=== PATIENT | female | born 1935 | race American Indian/Alaskan Native ===

== ENCOUNTER 2016-12-07 17:54 | Emergency (ER) | payer MEDICARE ==
--- NOTE | 2016-12-07 19:00 | Emergency Department Report ---
Chief Complaint: Chest Pain Stated Complaint: CHEST PAIN Time Seen by Provider: 12/07/16 18:53 - HPI History of Present Illness: Patient here reports chest pain on the left side of her chest that radiated into her back and also headache. She said the pain is achy in and is 5 out of 10. Her blood pressures to 1/99 and she's on medication. She reports that the pain started 2 days ago. Denies any nausea vomiting. Denies any fever or chills. She says she's having some shortness of breath on and off. She also reports that she feels weak. Patient has a history of diabetes and high blood pressure and high cholesterol. - ROS Review of Systems: All systems are negative unless stated in HPI above. - Exam Vital Signs: Vital Signs 12/07/16 18:16 Temperature 98.2 F Pulse Rate 94 H Respiratory 18 Rate Blood Pressure 201/99 O2 Sat by Pulse 99 Oximetry Physical Exam: General: This is a 81-year-old female well-nourished well-developed in no acute distress. CV: S1, S2. Regular rate and rhythm. Blood pressure 201/99. Lungs: Clear to auscultate bilaterally, no rhonchi wheezes or rales. Shortness of breath on exertion. MSE screening note: Focused history and physical exam performed. Due to findings the following was ordered:see mdm ED Medical Decision Making - Medical Decision Making Medical decision making: Patient seen by provider in triage area. Appropriate protocol activated and patient to main ED to be seen by physician. ED Disposition for MSE Condition: Stable
[2016-12-07 19:31] LABS: Basophils % (Auto) 0.9 % (0.0-1.8); Eosinophils % (Auto) 1.9 % (0.0-4.3); Hematocrit 43.3 % (30.3-42.9); Hemoglobin 14.5 gm/dl (10.1-14.3); Mean Corpuscular HGB Conc 33 % (30-34); Mean Corpuscular Hemoglobin 29 pg (28-32); Mean Corpuscular Volume 87 fl (79-97); Platelet Count 257 K/mm3 (140-440); Red Blood Count 4.96 M/mm3 (3.65-5.03); Red Cell Distribution Width 14.7 % (13.2-15.2); White Blood Count 7.4 K/mm3 (4.5-11.0)
[2016-12-07 19:52] LABS: Creatine Kinase MB 2.7 ng/mL (0.0-4.0)
[2016-12-07 19:54] LABS: Alanine Aminotransferase 23 units/L (7-56); Albumin 4.2 g/dL (3.9-5); Alkaline Phosphatase 50 units/L (35-129); Anion Gap 21 mmol/L; Bilirubin,Total < 0.2 mg/dL (0.1-1.2); Blood Urea Nitrogen 14 mg/dL (7-17); Calcium 9.5 mg/dL (8.4-10.2); Carbon Dioxide 26 mmol/L (22-30); Chloride 97.9 mmol/L (98-107); Creatine Kinase 130 units/L (30-135); Glucose 114 mg/dL (65-100); Potassium 3.9 mmol/L (3.6-5.0); Sodium 141 mmol/L (137-145); Total Protein 8.4 g/dL (6.3-8.2)
[2016-12-07 19:59] LABS: Bilirubin,Direct < 0.2 mg/dL (0-0.2)
[2016-12-08 02:51] LABS: Creatine Kinase 118 units/L (30-135)
[2016-12-08 02:53] LABS: Creatine Kinase MB 2.6 ng/mL (0.0-4.0)
--- NOTE | 2016-12-08 08:35 | XRay Report ---
CHEST X-RAY, 2 VIEWS: HISTORY: Chest pain. FINDINGS: Compared to 06/06/16. Mild cardiomegaly has resolved. Heart size is normal on today's exam. Normal pulmonary vascularity. The lungs are clear. No evidence for pneumonia, pleural effusion or pneumothorax. The thoracic cage is grossly intact. IMPRESSION: No acute cardiopulmonary process. Unremarkable chest films.
--- NOTE | 2016-12-08 10:49 | Emergency Department Report ---
ED Chest Pain HPI - General Chief Complaint: Chest Pain Stated Complaint: CHEST PAIN Time Seen by Provider: 12/07/16 18:53 Source: patient Mode of arrival: Ambulatory Limitations: No Limitations - History of Present Illness Initial Comments: This is a 81-year-old female who presents to the emergency department with complaint of a 2 day history of left-sided chest pain that radiates towards the back. The pain is intermittent. It seems to worsen with movement of the left upper extremity and with certain movements of her torso. She denies any current chest pain or any current shortness of breath but has had some intermittent shortness of breath as well. Patient presents with very elevated blood pressure but had not yet taken her blood pressure medication. She has been here for many hours and has just now taken her a.m. pressure medication. Patient had a negative stress test here in May 2016. Her primary care doctor is Dr. Stout. 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 No recent travel or sick contacts at home. She has a past medical history of hypertension, diabetes but denies any history of TN, CVA, PE/DVT. She is not a tobacco smoker and denies any illicit drug use or abuse. Severity scale (0 -10): 7 - Related Data Home Medications Medication Instructions Recorded Confirmed Last Taken Famotidine [Pepcid] 20 mg PO BID 11/19/15 06/06/16 12/07/16 Simvastatin [Zocor TAB] 40 mg PO QHS 11/19/15 06/06/16 12/07/16 Valsartan/Hydrochlorothiazide 1 tab PO QDAY 11/19/15 06/06/16 12/07/16 [Diovan Hct 160-25 mg] metFORMIN [Glucophage] 500 mg PO BID 11/19/15 06/06/16 12/07/16 Carvedilol [Coreg] 3.125 mg PO BID 06/06/16 06/06/16 12/07/16 hydrALAZINE 100 mg PO BID 06/06/16 06/06/16 12/07/16 Potassium Chloride 10 meq PO QDAY 12/07/16 12/07/16 12/07/16 Previous Rx's Medication Instructions Recorded Last Taken Type Aspirin [Aspirin TAB] 325 mg PO QDAY #30 tablet 11/21/15 12/07/16 Rx Allergies Allergy/AdvReac Type Severity Reaction Status Date / Time codeine AdvReac Dizziness Unverified 11/02/15 10:14 RAMON score - Ramon Score Age > 65: (1) Yes Aspirin use within the Past 7 Days: (1) Yes 3 or more CAD Risk Factors: (1) Yes 2 or more Angina events in past 24 hrs: (0) No Known CAD with more than 50% Stenosis: (0) No Elevated Cardiac Markers: (0) No ST Deviation Greater than 0.5mm: (0) No RAMON Score: 3 ED Review of Systems ROS: Stated complaint: CHEST PAIN Other details as noted in HPI Comment: All other systems reviewed and negative Constitutional: denies: chills, fever Eyes: denies: eye pain, eye discharge, vision change ENT: denies: ear pain, throat pain Respiratory: denies: cough, wheezing Cardiovascular: chest pain. denies: palpitations Gastrointestinal: denies: abdominal pain, nausea, diarrhea Genitourinary: denies: urgency, dysuria, discharge Musculoskeletal: denies: back pain, joint swelling, arthralgia Skin: denies: rash, lesions Neurological: denies: headache, weakness, paresthesias ED Past Medical Hx - Past Medical History Hx Hypertension: Yes Hx CVA: No Hx Heart Attack/AMI: No Hx Congestive Heart Failure: No Hx Diabetes: Yes Hx Deep Vein Thrombosis: No Hx Pulmonary Embolism: No Hx GERD: No Hx Liver Disease: No Hx Renal Disease: No Hx Sickle Cell Disease: No Hx Arthritis: Yes Hx Headaches / Migraines: No Hx Seizures: No Hx Kidney Stones: No Hx Psychiatric Treatment: No Hx Asthma: No Hx COPD: No Hx Dementia: No Hx HIV: No Additional medical history: cholesterol - Surgical History Hx Coronary Stent: No Hx Open Heart Surgery: No Hx Pacemaker: No Hx Internal Defibrillator: No Hx Cholecystectomy: No Hx Appendectomy: No Hx Breast Surgery: No Additional Surgical History: r. knee, and thyroid - Social History Smoking Status: Never Smoker Substance Use Type: None - Medications Home Medications: Home Medications Medication Instructions Recorded Confirmed Last Taken Type Famotidine [Pepcid] 20 mg PO BID 11/19/15 06/06/16 12/07/16 History Simvastatin [Zocor TAB] 40 mg PO QHS 11/19/15 06/06/16 12/07/16 History Valsartan/Hydrochlorothiazide 1 tab PO QDAY 11/19/15 06/06/16 12/07/16 History [Diovan Hct 160-25 mg] metFORMIN [Glucophage] 500 mg PO BID 11/19/15 06/06/16 12/07/16 History Aspirin [Aspirin TAB] 325 mg PO QDAY #30 tablet 11/21/15 06/06/16 12/07/16 Rx Carvedilol [Coreg] 3.125 mg PO BID 06/06/16 06/06/16 12/07/16 History hydrALAZINE 100 mg PO BID 06/06/16 06/06/16 12/07/16 History Potassium Chloride 10 meq PO QDAY 12/07/16 12/07/16 12/07/16 History ED Physical Exam - General Limitations: No Limitations - Other Other exam information: GENERAL: The patient is well-developed well-nourished. HEENT: Normocephalic. Atraumatic. Extraocular motions are intact. Patient has moist mucous membranes. Pupils equal reactive to light bilaterally. NECK: Supple. Trachea is midline. CHEST/LUNGS: Clear to auscultation. There is no respiratory distress noted. Chest pain is reproducible to palpation of chest wall. HEART/CARDIOVASCULAR: Regular. There is no tachycardia. There is no gallop rub or murmur. ABDOMEN: Abdomen is soft, nontender. Patient has normal bowel sounds. There is no abdominal distention. SKIN: There is no rash. There is no diaphoresis. NEURO: The patient is awake, alert, and oriented. The patient is cooperative. The patient has no focal neurologic deficits. The patient has normal speech. MUSCULOSKELETAL: There is no tenderness or deformity. There is no limitation range of motion. There is no evidence of acute injury. ED Course Vital Signs 12/07/16 12/08/16 12/08/16 18:16 03:55 10:43 Temperature 98.2 F 98.9 F Pulse Rate 94 H 79 Respiratory 18 16 Rate Blood Pressure 201/99 173/84 Blood Pressure 185/94 [Left] O2 Sat by Pulse 99 98 92 Oximetry 12/08/16 10:52 Temperature Pulse Rate Respiratory 18 Rate Blood Pressure Blood Pressure [Left] O2 Sat by Pulse Oximetry - Consultations Consultation #1: I spoke with the PA, Carley Isaacs, in behalf of Dr. Zaldivar, for [facility] cardiology regarding the patient's ED course. Since the patient has had negative troponins 3, a normal CT angiography of the chest, is currently asymptomatic and pain-free, and had a negative stress test in May, they feel that the patient is safe for discharge home but they will see her outpatient in the office in the next few days. 12/08/16 13:47 ED Medical Decision Making - Lab Data Result diagrams: 12/07/16 19:10 12/07/16 19:10 - EKG Data -: EKG Interpreted by Me EKG shows normal: sinus rhythm, axis, intervals, QRS complexes, ST-T waves ( nonspecific ST-T waves) Rate: normal - EKG Data When compared to previous EKG there are: previous EKG unavailable Interpretation: nonspecific ST-T wave tammy - Radiology Data Radiology results: report reviewed, image reviewed interpreted by me: Chest x-ray did not show any acute process. Heart is normal shape and size. No effusions. No pneumothorax. No signs of pneumonia seen. CT angiography of the chest does not show any signs of pulmonary embolism or dissection. There is a suspicion for faint bilateral basilar infiltrates. - Medical Decision Making 81-year-old female presents with 2 day history of some left-sided chest pain with radiation towards the back. Intermittent shortness of breath. Patient has been in the emergency department now for about 20 hours. During that time she has had negative troponins 3, a venous Doppler of the lower extremities that does not show any signs of DVT, a CT angiography of the chest that did not show any PE or dissection. The rest the patient's labs have been relatively unremarkable. Patient did have some elevated blood pressure upon presentation but it has come down to a much more reasonable level. During her last reevaluation, the patient says she is asymptomatic without any shortness of breath, chest pain or any complaints at this time. Patient's EKG does not show any signs of ST elevation TN. Since the patient's CT angiography does show a reading that says suspicion for faint bilateral basilar infiltrates, and with her history of diabetes and advanced age, she will be treated with some antibiotics. Spoke with cardiology feel she is safe for discharge home but will follow-up in the next few days. All this information has been given to the patient and she will call [facility] cardiology later today for an appointment. She will return immediately to the emergency department with any return of her chest pain, worsening of her symptoms or any acute distress. She understands and agrees to the plan. - Differential Diagnosis TN, PE, pneumonia, CHF Critical Care Time: No Critical care attestation.: If time is entered above; I have spent that time in minutes in the direct care of this critically ill patient, excluding procedure time. ED Disposition Clinical Impression: Chest pain in adult Hypertension Qualifiers: Hypertension type: essential hypertension Qualified Code(s): I10 - Essential ( primary) hypertension Disposition: DISCHARGED TO HOME OR SELFCARE Is pt being admited?: No Does the pt Need Aspirin: No Condition: Stable Instructions: Chest Pain (ED), Hypertension (ED) Additional Instructions: Please call today to the cardiology group you were given a referral to, [facility] cardiology, to make an appointment for the next few days. Follow- up with your primary care doctor. Return to the emergency department with any return of your chest pain, worsening of your symptoms, or any acute distress. Referrals: CHI LEVY MD [Primary Care Provider] - 3-[facility]5 Days Time of Disposition: 13:54
[2016-12-08] MEDS ORDERED: CATAPRES PO ONE (10:59)
[2016-12-08] MEDS ORDERED: APRESOLINE IV ONE (11:06)
[2016-12-08] MEDS ORDERED: NACL ONE (12:09)
--- NOTE | 2016-12-08 13:07 | Cat Scan Report ---
CTA chest: History: Elevated d-dimer. Chest pain. Findings: No evidence of aortic aneurysm or pulmonary embolism. No pleural or pericardial effusion. No mediastinal mass. Suspicion of bibasilar faint infiltrates. Impression: No pulmonary embolism. Suspicion of faint bilateral basilar infiltrates.
[2016-12-08 14:15] VITALS: BP 150/81
--- NOTE | 2016-12-09 07:56 | Vascular Lab Report ---
[id number] LOWER EXTREMITY VENOUS DUPLEX: REASON FOR EXAM: Pain and swelling of the lower extremities. COMMENTS ON THE RIGHT: All veins visualized are freely compressible without evidence of internal echogenicity. Flow is spontaneous and phasic throughout. COMMENTS ON THE LEFT: All veins visualized are freely compressible without evidence of internal echogenicity. Flow is spontaneous and phasic throughout. IMPRESSION: No evidence of acute or chronic deep venous thrombosis in either lower extremity.
== END 2016-12-08 14:20 | disposition home or self-care (01) ==
LOC: ED 17:54
DX: R07.9 Chest pain, unspecified (principal); I10 Essential (primary) hypertension; E11.9 Type 2 diabetes mellitus without complications; M19.90 Unspecified osteoarthritis, unspecified site; Z88.5 Allergy status to narcotic agent; Z79.82 Long term (current) use of aspirin
CPT/HCPCS: 36415; 71020; 71275; 80048; 80074; 82550; 82553; 84484; 85025; 85379; 93005; 93010; 93970; 99284; Q9967

== ENCOUNTER 2017-01-03 16:05 | Emergency (ER) | payer MEDICARE ==
[2017-01-03] MEDS ORDERED: CATAPRES PO ONE (20:25)
[2017-01-03] MEDS ORDERED: TYLENOL PO ONE (20:25)
--- NOTE | 2017-01-03 20:34 | Emergency Department Report ---
Chief Complaint: Headache Stated Complaint: SEVERE HEADACHE - HPI History of Present Illness: 81F past medical history hypertension presents with complaint of 3 days of worsening headache throbbing left-sided mom states that she was taking Motrin for headache with no resolution - Exam Vital Signs: Vital Signs 01/03/17 01/03/17 16:15 19:54 Temperature 98.0 F Pulse Rate 85 74 Respiratory 18 16 Rate Blood Pressure 193/104 Blood Pressure 187/94 [Left] O2 Sat by Pulse 97 95 Oximetry Physical Exam: AAOx3, NAD, pt ambulatory MSE screening note: Focused history and physical exam performed. Due to findings the following was ordered: Screening Assessment/Plan/Differential Dx: Headache, possible symptomatic hypertension 1- This initial assessment/diagnostic orders/clinical plan/ treatment(s) is/are subject to change based on pt's health status, clinical progression and re- assessment by fellow clinical providers in the ED. Further treatment and workup at subsequent clinical provers discretion. Patient/guardians urged not to elope from ED as their condition may be serious if not clinically assessed and managed. 2-I notified charge nurse of up triage as patient has high blood pressure in context of headache will treat with clonidine for now and Tylenol for symptomatic relief ordered basic labs and noncontrast head CT given patient's age and risk factors and complaint of severe headache. will defer further workup and management to main ed provider ED Disposition for MSE Condition: Stable Referrals: PRIMARY MD VONNIE [Primary Care Provider] - 3-5 Days
[2017-01-03 20:39] LABS: Basophils % (Auto) 0.5 % (0.0-1.8); Hematocrit 42.9 % (30.3-42.9); Hemoglobin 14.2 gm/dl (10.1-14.3); Mean Corpuscular HGB Conc 33 % (30-34); Mean Corpuscular Hemoglobin 29 pg (28-32); Mean Corpuscular Volume 87 fl (79-97); Platelet Count 326 K/mm3 (140-440); Red Blood Count 4.93 M/mm3 (3.65-5.03); Red Cell Distribution Width 14.4 % (13.2-15.2); White Blood Count 7.1 K/mm3 (4.5-11.0)
[2017-01-03] MEDS ORDERED: NACL 0.9% 500 ML 500 ML IV ONE (20:47)
[2017-01-03] MEDS ORDERED: REGLAN IV ONE (20:47)
--- NOTE | 2017-01-03 20:57 | Emergency Department Report ---
ED General Adult HPI - General Chief complaint: Headache Stated complaint: SEVERE HEADACHE Time Seen by Provider: 01/03/17 20:35 Source: patient, RN notes reviewed, old records reviewed Mode of arrival: Ambulatory Limitations: No Limitations - History of Present Illness Initial comments: This is a 81-year-old female. She is previously unknown to me. 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 Patient presents to the ER complaining of headache, left-sided neck pain. The headache is present for 3 days. It is throbbing and intermittent. It is not sudden or thunderclap in nature. It did not reach maximal intensity within an hour. There is no neck stiffness. Patient describes left-sided paracervical neck pain and left shoulder pain. There is no weakness. There is no bladder or bowel retention or incontinence. There is no chest pain or shortness of breath. There is no blurry vision or loss of vision. There is no pain with chewing or swallowing foods. No recent trauma. No recent chiropractic manipulation. -: Gradual Location: head, neck Radiation: neck Severity scale (0 -10): 5 Quality: aching Consistency: intermittent Improves with: rest Worsens with: movement Associated Symptoms: headaches. denies: confusion, chest pain, cough, diaphoresis, fever/chills, loss of appetite, malaise, nausea/vomiting, rash, seizure, shortness of breath, syncope, weakness - Related Data Home Medications Medication Instructions Recorded Confirmed Last Taken Famotidine [Pepcid] 20 mg PO BID 11/19/15 06/06/16 12/07/16 Simvastatin [Zocor TAB] 40 mg PO QHS 11/19/15 06/06/16 12/07/16 Valsartan/Hydrochlorothiazide 1 tab PO QDAY 11/19/15 06/06/16 12/07/16 [Diovan Hct 160-25 mg] metFORMIN [Glucophage] 500 mg PO BID 11/19/15 06/06/16 12/07/16 Carvedilol [Coreg] 3.125 mg PO BID 06/06/16 06/06/1617 hydrALAZINE 100 mg PO BID 06/06/16 06/06/16 12/07/16 Potassium Chloride 10 meq PO QDAY 12/07/16 12/07/16 12/07/16 Previous Rx's Medication Instructions Recorded Last Taken Type Aspirin [Aspirin TAB] 325 mg PO QDAY #30 tablet 11/21/15 12/07/16 Rx Allergies Allergy/AdvReac Type Severity Reaction Status Date / Time codeine AdvReac Dizziness Verified 01/03/17 16:15 ED Review of Systems ROS: Stated complaint: SEVERE HEADACHE Other details as noted in HPI Constitutional: denies: malaise Eyes: denies: eye discharge, vision change ENT: denies: epistaxis Respiratory: denies: cough Cardiovascular: denies: chest pain Gastrointestinal: denies: abdominal pain Musculoskeletal: arthralgia Skin: denies: lesions Neurological: headache Psychiatric: as per HPI ED Past Medical Hx - Past Medical History Previous Medical History?: Yes Hx Hypertension: Yes Hx CVA: No Hx Heart Attack/AMI: No Hx Congestive Heart Failure: No Hx Diabetes: Yes Hx Deep Vein Thrombosis: No Hx Pulmonary Embolism: No Hx GERD: No Hx Liver Disease: No Hx Renal Disease: No Hx Sickle Cell Disease: No Hx Arthritis: Yes Hx Headaches / Migraines: No Hx Seizures: No Hx Kidney Stones: No Hx Psychiatric Treatment: No Hx Asthma: No Hx COPD: No Hx Dementia: No Hx HIV: No Additional medical history: cholesterol - Surgical History Hx Coronary Stent: No Hx Open Heart Surgery: No Hx Pacemaker: No Hx Internal Defibrillator: No Hx Cholecystectomy: No Hx Appendectomy: No Hx Breast Surgery: No Additional Surgical History: r. knee, and thyroid - Social History Smoking Status: Never Smoker Substance Use Type: None - Medications Home Medications: Home Medications Medication Instructions Recorded Confirmed Last Taken Type Famotidine [Pepcid] 20 mg PO BID 11/19/15 06/06/16 12/07/16 History Simvastatin [Zocor TAB] 40 mg PO QHS 11/19/15 06/06/16 12/07/16 History Valsartan/Hydrochlorothiazide 1 tab PO QDAY 11/19/15 06/06/16 12/07/16 History [Diovan Hct 160-25 mg] metFORMIN [Glucophage] 500 mg PO BID 11/19/15 06/06/16 12/07/16 History Aspirin [Aspirin TAB] 325 mg PO QDAY #30 tablet 11/21/15 06/06/16 12/07/16 Rx Carvedilol [Coreg] 3.125 mg PO BID 06/06/16 06/06/16 12/07/16 History hydrALAZINE 100 mg PO BID 06/06/16 06/06/16 12/07/16 History Potassium Chloride 10 meq PO QDAY 12/07/16 12/07/16 12/07/16 History ED Physical Exam - General Limitations: Physical Limitation (she has chronic arthritis and left-sided shoulder pain. She cannot abduction of the left shoulder past 90. This is chronic.) General appearance: alert, in no apparent distress - Head Head exam: Present: atraumatic, normocephalic - Eye Eye exam: Present: normal appearance, PERRL, EOMI, other (there is no temporal tenderness. Visual acuity is intact to reading at a close distance, finger counting, color perception.). Absent: nystagmus - ENT ENT exam: Present: normal exam, normal orophraynx, mucous membranes moist, normal external ear exam - Neck Neck exam: Present: normal inspection, full ROM. Absent: tenderness, meningismus - Respiratory Respiratory exam: Present: normal lung sounds bilaterally. Absent: respiratory distress, wheezes, rales, rhonchi, stridor, chest wall tenderness - Cardiovascular Cardiovascular Exam: Present: regular rate, normal rhythm, normal heart sounds. Absent: bradycardia, tachycardia, irregular rhythm, systolic murmur, diastolic murmur, rubs, gallop - GI/Abdominal GI/Abdominal exam: Present: soft, normal bowel sounds. Absent: distended, tenderness, guarding, rebound, rigid, pulsatile mass - Extremities Exam Extremities exam: Present: normal inspection, full ROM, normal capillary refill. Absent: tenderness, pedal edema, joint swelling, calf tenderness - Back Exam Back exam: Present: normal inspection, full ROM. Absent: tenderness, CVA tenderness (R), CVA tenderness (L), muscle spasm, paraspinal tenderness, vertebral tenderness - Neurological Exam Neurological exam: Present: alert, oriented X3, normal gait, other (Extraocular movements intact. Tongue midline. No facial droop. Facial sensation intact to light touch in the V1, V2, V3 distribution bilaterally. 5 and 5 strength in 4 extremities.. Sensation is intact to light touch in 4 extremities.). Absent : motor sensory deficit (sensation intact to light touch, pinprick, proprioception.) - Psychiatric Psychiatric exam: Present: normal affect, normal mood - Skin Skin exam: Present: warm, dry, intact, normal color. Absent: rash ED Course Vital Signs 01/03/17 01/03/17 01/03/17 16:15 19:54 20:37 Temperature 98.0 F Pulse Rate 85 74 Respiratory 18 16 Rate Blood Pressure 193/104 187/94 Blood Pressure 187/94 [Left] O2 Sat by Pulse 97 95 Oximetry 01/03/17 01/04/17 23:16 01:33 Temperature Pulse Rate 94 H 82 Respiratory 16 16 Rate Blood Pressure Blood Pressure 172/92 164/83 [Left] O2 Sat by Pulse 95 97 Oximetry - Reevaluation(s) Reevaluation #1: 01/03/17 23:08 Differential diagnosis: Migraine headache, tension headache, cluster headache, hypertensive headache, cervical radiculopathy, arterial dissection, muscular neck pain Assessment and plan: 81-year-old female with headache and neck pain. She has a GCS of 15, with an NIH score of 0. No visual complaints, no pain with chewing or swallowing food, normal sedimentation rate. Therefore think temporal arteritis is unremarkable. She has a GCS of 15, and an NIH score is 0. She is afebrile with reassuring vital signs, with the exception of hypertension. She has follow-up with her legal service specialist in the morning. I appreciate the patient had a negative MR angiogram in October 2015, but given her advanced age, and profound hypertension, I will obtain a noncontrast CT scan of the head and neck to exclude fracture, compression, spontaneous intracerebral hemorrhage, as well as an angiogram to exclude arterial disease. Historically her headache does not sound consistent with aneurysmal subarachnoid hemorrhage. Her hypertension is noted and appreciated, she has follow-up with a legal service specialist in the morning. Reevaluation #2: 01/04/17 01:54 patient reassessed by me multiple times while in the department. CT scan of the head, cervical spine and angiogram demonstrated no acute/ urgent findings. Incidental findings are noted. She can follow-up with her primary care doctor for these. Repeat blood pressure is improved, repeat neurologic exam is unremarkable and unchanged. She will be discharged. Return precautions are reviewed. ED Medical Decision Making - Lab Data Result diagrams: 01/03/17 20:23 01/03/17 20:23 Vital Signs 01/03/17 01/03/17 01/03/17 16:15 19:54 20:37 Temperature 98.0 F Pulse Rate 85 74 Respiratory 18 16 Rate Blood Pressure 193/104 187/94 Blood Pressure 187/94 [Left] O2 Sat by Pulse 97 95 Oximetry Lab Results 01/03/17 01/03/17 01/03/17 Range/Units 20:23 20:23 20:23 WBC 7.1 (4.5-11.0) K/mm3 RBC 4.93 (3.65-5.03) M/mm3 Hgb 14.2 (10.1-14.3) gm/dl Hct 42.9 (30.3-42.9) % MCV 87 (79-97) fl MCH 29 (28-32) pg MCHC 33 (30-34) % RDW 14.4 (13.2-15.2) % Plt Count 326 (140-440) K/mm3 Lymph % (Auto) 42.0 H (13.4-35.0) % [place] % (Auto) 7.5 H (0.0-7.3) % Eos % (Auto) 2.0 (0.0-4.3) % Baso % (Auto) 0.5 (0.0-1.8) % Lymph # 3.0 (1.2-5.4) K/mm3 [place] # 0.5 (0.0-0.8) K/mm3 Eos # 0.1 (0.0-0.4) K/mm3 Baso # 0.0 (0.0-0.1) K/mm3 Seg Neutrophils % 48.0 (40.0-70.0) % Seg Neutrophils # 3.4 (1.8-7.7) K/mm3 ESR 18 (0-20) mm/Hr Sodium 139 (137-145) mmol/L Potassium 3.7 (3.6-5.0) mmol/L Chloride 96.3 L (98-107) mmol/L Carbon Dioxide 27 (22-30) mmol/L Anion Gap 19 mmol/L BUN 14 (7-17) mg/dL Creatinine 0.6 L (0.7-1.2) mg/dL Estimated GFR > 60 ml/min BUN/Creatinine Ratio 23.33 % Glucose 91 (65-100) mg/dL Calcium 9.5 (8.4-10.2) mg/dL - Radiology Data Radiology results: report reviewed, image reviewed CT angiogram of the neck: Atherosclerosis noted in the carotid siphons bilaterally with less than 50% narrowing. No other intracranial evidence of hemodynamically significant stenosis. Possible slight focal outpouching of the A1 segment of the right ASHANTI, likely tortuosity rather than small aneurysm. CT angiogram of the neck: There is no ringing in atherosclerosis at the bulb and proximal ICAs bilaterally, likely 50% or less. There is mild tortuosity. Mild atherosclerosis of the carotid siphons bilaterally. Maybe more severe on the left, limited due to bony artifact. There is bilateral tortuosity. DJD is noted in the spine. There is a heterogeneous left thyroid with mild rightward tracheal deviation. Consider thyroid ultrasound. Noncontrast CT scan of the cervical spine demonstrates osteophytes, mild foraminal narrowing, osteopenia, slight C4 to 6 compression, likely chronic/degenerative. Noncontrast CT scan of the brain negative for acute findings. Critical care attestation.: If time is entered above; I have spent that time in minutes in the direct care of this critically ill patient, excluding procedure time. ED Disposition Clinical Impression: Headache, Elevated blood pressure Disposition: DISCHARGED TO HOME OR SELFCARE Is pt being admited?: No Does the pt Need Aspirin: No Condition: Stable Additional Instructions: follow up With your legal service specialist in the morning. Did not take metformin for the next 48 hours. Continue current outpatient medications otherwise, with the exception of metformin as directed. Long-term complications of hypertension/elevated blood pressure includes stroke , heart attack, disability, , paralysis, permanent loss of quality of life. It is very important to closely follow up with her outpatient legal service specialist for further management and evaluation of your blood pressure/ hypertension. Return to the ER right away with new pain, worsened pain, migration of pain, fevers or chills, intractable nausea or vomiting, inability to tolerate liquid feeds. Riana Gray and Norberto are local neurology specialists. Follow-up with either neurology or primary care for your headache within the next 10-[address] scan of the head and neck demonstrated numerous incidental findings which should be followed up. Nonspecific abnormalities were noted in the thyroid gland. These should be followed up by her primary care doctor. Degenerative disease and arthritis are suggested on the cervical spine CT. This can be followed up by her primary care doctor. There is nonspecific narrowing of the arteries at supply the brain. This should be followed up by her primary care doctor or one of the recommended neurologist. Referrals: PRIMARY CARE, [Primary Care Provider] - 3-5 Days GIULIANO CERVANTES MD [Staff Physician] - 3-5 Days PRASHANTH ZAVALA MD [Staff Physician] - 3-5 Days LILLIE GRAY MD [Staff Physician] - 3-5 Days
[2017-01-03 20:59] LABS: Anion Gap 19 mmol/L; BUN/Creatinine Ratio 23.33; Blood Urea Nitrogen 14 mg/dL (7-17); Calcium 9.5 mg/dL (8.4-10.2); Carbon Dioxide 27 mmol/L (22-30); Chloride 96.3 mmol/L (98-107); Glucose 91 mg/dL (65-100); Potassium 3.7 mmol/L (3.6-5.0); Sodium 139 mmol/L (137-145)
[2017-01-03] MEDS ORDERED: NACL ONE (22:10)
--- NOTE | 2017-01-03 23:17 | Cat Scan Report ---
FINAL REPORT PROCEDURE: CT CERVICAL SPINE WO CON TECHNIQUE: Computerized tomography of the cervical spine was performed from the skull base to T1 without contrast material. HISTORY: Neck pain. Question radiculopathy. COMPARISON: No prior studies are available for comparison. FINDINGS: C1-2: Mild predental narrowing. C2-3: Small posterior and uncovertebral osteophytes, slightly more right-sided. Minimal right foraminal narrowing. C3-4: Small posterior and uncovertebral osteophytes, more right-sided. Minimal right foraminal narrowing. C4-5: Small posterior and uncovertebral osteophytes. Mild bilateral facet arthropathy. Slight canal stenosis and foraminal narrowing. C5-6: Similar to above findings. C6-7: Small posterior and uncovertebral osteophytes. C7-T1: No significant abnormality. Other: Osteopenia. Multilevel osteophytes. Slight C4-6 compression. Moderate atherosclerosis. Right thyroid lobe not well seen. Mild enlargement of the left lobe of the thyroid with slight rightward tracheal deviation. Esophagus mildly prominent and thick-walled. A few small scattered lymph nodes throughout the neck. IMPRESSION: Osteopenia and degenerative change. Slight C4-6 compression, likely chronic/degenerative. Consider MRI for further characterization if there is continued clinical concern and if patient has no contraindication to MRI. Atherosclerosis. Right thyroid lobe not well seen. Mild enlargement of left lobe of the thyroid gram with slight rightward tracheal deviation. Consider thyroid ultrasound. Esophagus mildly prominent and thick-walled, consider correlation with fluoroscopic examination or endoscopy if there is continued clinical concern..
--- NOTE | 2017-01-03 23:23 | Cat Scan Report ---
FINAL REPORT PROCEDURE: CT HEAD/BRAIN WO CON TECHNIQUE: Computerized tomography of the head was performed without contrast material. HISTORY: Severe headache. COMPARISON: CT scan of the brain dated 11/19/2015. FINDINGS: Skull and scalp: Normal. Paranasal sinuses: Minimal ethmoid sinusitis. Ventricles and subarachnoid spaces: Normal. Cerebrum: No evidence of hemorrhage, acute infarction or mass. Punctate bilateral basal ganglia calcifications. Mild periventricular white matter low attenuation. Cerebellum and brainstem: No evidence of hemorrhage, acute infarction or mass. Stable small 7 millimeter area of low attenuation in the left cerebellum. Vasculature: Mild atherosclerosis. Comments: None. IMPRESSION: No new CT evidence of acute intracranial pathology. Atrophy. White matter changes likely related to chronic small vessel ischemic change. Probable small focal area of encephalomalacia in the left cerebellum, unchanged. Consider further characterization including MRI of the brain if there is continued clinical concern for subtle superimposed acute process and if patient has no contraindication to MRI.
--- NOTE | 2017-01-04 00:28 | Cat Scan Report ---
FINAL REPORT PROCEDURE: CT ANGIO HEAD TECHNIQUE: Computerized tomographic angiography of the head was performed after the IV injection of iodinated nonionic contrast including image processing. The image data was postprocessed using 2-dimensional multiplanar reformatted (MPR) and 3-dimensional (MIP and/or volume rendered) techniques. HISTORY: Headache. Hypertension. COMPARISON: CT scan of the brain dated 01/03/2017. FINDINGS: Cerebrum: No evidence of hemorrhage, acute ischemia or mass. Cerebellum: No evidence of hemorrhage, acute ischemia or mass. Subarachnoid spaces and ventricles: Normal. Paranasal sinuses: Minimal ethmoid sinusitis. Intracranial vessels: Carotid siphon: Mild atherosclerosis with probable less than 50 percent narrowing. Anterior cerebral: Possible slight focal outpouching of the A1 segment of the right ASHANTI. Middle cerebral: Normal. Posterior cerebral:Normal. Vertebral arteries including basilar: Normal. Aneurysms: None. Dural sinuses: Normal. IMPRESSION: Mild atherosclerosis of the carotid siphons bilaterally with probably less than 50 percent narrowing. No other intracranial CTA evidence of hemodynamically significant stenosis. Possible slight focal outpouching of the A1 segment of the right ASHANTI likely tortuosity rather than small aneurysm. Consider further evaluation including followup examination or MRI if there is continued clinical concern and patient has no contraindication to MRI.
--- NOTE | 2017-01-04 00:49 | Cat Scan Report ---
FINAL REPORT PROCEDURE: CT ANGIO NECK TECHNIQUE: Computerized tomographic angiography of the neck was performed after the IV injection of iodinated nonionic contrast including image processing. The image data was postprocessed using 2-dimensional multiplanar reformatted (MPR) and 3-dimensional (MIP and/or volume rendered) techniques. HISTORY: Headache. Hypertension. COMPARISON: CT and CTA of the brain dated same day and time. Note: Assessment of carotid artery stenosis is based on measurement of the distal internal carotid artery diameter as the denominator for stenosis calculations and the [place] Symptomatic Carotid Endarterectomy Trial (NASCET) stenosis criteria . CPT 3100F FINDINGS: Sinuses: Normal . Non vascular cervical structures: No significant abnormality . Aortic arch: Mild atherosclerosis. Approximately 30-40 percent narrowing of the origin of the left subclavian artery. Right carotid artery: Approximately 50 percent narrowing at the bulb. Approximately 30 percent narrowing of the proximal ICA. Atherosclerosis of the carotid siphon, limited evaluation but probably less than 50 percent stenosis. Tortuosity. Left carotid artery: Approximately 50 percent narrowing at the bulb. Probably 30-40 narrowing of the proximal ICA. Mild atherosclerosis of the carotid siphon on the left, limited evaluation. Consider there may be at least 50 percent narrowing although evaluation limited by artifact. Tortuosity. Vertebral arteries: Normal . Other: Enlarged heterogeneous left thyroid with mild rightward tracheal deviation. Small scattered subcentimeter lymph nodes throughout the neck. Degenerative changes of the spine. Slight C4-6 compression. IMPRESSION: Narrowing and atherosclerosis at the bulb and proximal ICAs bilaterally, probably 50 percent or less. Tortuosity. Mild atherosclerosis of the carotid siphons bilaterally. This may be more severe on the left, limited evaluation due to bony artifact. There is vessel tortuosity bilaterally. Consider further evaluation including MRA if there is continued clinical concern and patient has no contraindication to MRI. Also consider carotid Doppler ultrasound for further characterization. Enlarged heterogeneous left thyroid with mild rightward tracheal deviation. Consider thyroid ultrasound. Degenerative changes of the spine with age indeterminate slight cervical spine compression.
[2017-01-04 01:34] VITALS: BP 164/83
== END 2017-01-04 02:11 | disposition home or self-care (01) ==
LOC: ED 16:05
DX: I10 Essential (primary) hypertension (principal); R51 Headache; E11.9 Type 2 diabetes mellitus without complications; Z87.39 Personal history of other diseases of the musculoskeletal system and connective tissue
CPT/HCPCS: 36415; 70450; 70496; 70498; 72125; 80048; 85025; 85652; 96361; 96374; 99284; J2765; J7040; Q9967

== ENCOUNTER 2017-08-03 06:34 | Emergency (ER) | payer MEDICARE ==
[2017-08-03] MEDS ORDERED: MOTRIN PO ONE (08:41)
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
--- NOTE | 2017-08-03 10:22 | XRay Report ---
LUMBOSACRAL SPINE, 3 VIEWS: History: Back pain Findings: The vertebral bodies, disk spaces and posterior elements are intact. No compression deformity or malalignment. Moderate multilevel degenerative disc disease and facet arthropathy are identified. The SI joints are symmetric and unremarkable. Impression: Lumbar spondylosis. No acute injury is appreciated.
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
[2017-08-03 12:04] VITALS: BP 189/87
== END 2017-08-03 12:03 | disposition home or self-care (01) ==
LOC: ED 06:34
DX: S16.1XXA Strain of muscle, fascia and tendon at neck level, initial encounter (principal); M54.9 Dorsalgia, unspecified; I10 Essential (primary) hypertension; E11.9 Type 2 diabetes mellitus without complications; V49.49XA Driver injured in collision with other motor vehicles in traffic accident, initial encounter; Y93.9 Activity, unspecified; Y92.9 Unspecified place or not applicable; Y99.9 Unspecified external cause status
CPT/HCPCS: 72070; 72100; 72125

== ENCOUNTER 2018-04-30 10:13 | Emergency (ER) | payer MEDICARE ==
[2018-04-30] MEDS ORDERED: MOTRIN PO ONE (12:44)
[2018-04-30] MEDS ORDERED: CATAPRES PO ONE (12:44)
--- NOTE | 2018-04-30 12:45 | Emergency Department Report ---
Blank Doc - Documentation Documentation: Patient is a 83-year-old female who is presenting with left shoulder pain. Patient states that she has a history of left shoulder pain and arthritis but states the pain is not worse over the last week and a half. Patient also took her blood pressure this morning and it was elevated. Patient denies shortness of breath chest pain cough congestion and fevers chills at this time. Patient states that her pain in the shoulder is worse with movement. Brief physical exam patient does have crepitus with range of motion to the left shoulder. EKG will be done because of the elevated blood pressure and rule o acute coronary syndrome. Patient was given Catapres and pain meds. Patient be reassessed spelled TIFFANIE. Ut
--- NOTE | 2018-04-30 14:42 | Emergency Department Report ---
ED General Adult HPI - General Chief complaint: High BP Stated complaint: HIGH BLOOD SUGAR Time Seen by Provider: 04/30/18 12:40 Source: patient Mode of arrival: Ambulatory Limitations: No Limitations - History of Present Illness Initial comments: 83-year-old female presents for evaluation of left shoulder pain worse with movement she denies any fevers chills or direct trauma to left shoulder. Patient also states that her blood pressure has been high and she is asking for a blood sugar to be checked. Denies any shortness of breath palpitations pleuritic chest pain nausea vomiting epigastric pain. Pain is specifically worse when she rotates her left shoulder. Patient is visibly able to move left shoulder. Patient states that this pain is chronic. Severity scale (0 -10): 7 - Related Data Home Medications Medication Instructions Recorded Confirmed Last Taken Famotidine [Pepcid] 20 mg PO BID 11/19/15 06/06/16 12/07/16 Simvastatin [Zocor TAB] 40 mg PO QHS 11/19/15 06/06/16 12/07/16 Valsartan/Hydrochlorothiazide 1 tab PO QDAY 11/19/15 06/06/16 12/07/16 [Diovan Hct 160-25 mg] metFORMIN [Glucophage] 500 mg PO BID 11/19/15 06/06/16 12/07/16 Carvedilol [Coreg] 3.125 mg PO BID 06/06/16 06/06/16 12/07/16 hydrALAZINE 100 mg PO BID 06/06/16 06/06/16 12/07/16 Potassium Chloride 10 meq PO QDAY 12/07/16 12/07/16 12/07/16 Previous Rx's Medication Instructions Recorded Last Taken Type Aspirin [Aspirin TAB] 325 mg PO QDAY #30 tablet 11/21/15 12/07/16 Rx Ibuprofen [Motrin] 600 mg PO Q8H PRN #15 tablet 08/03/17 Unknown Rx methOCARBAMOL [Robaxin TAB] 500 mg PO Q6H PRN #15 tablet 08/03/17 Unknown Rx traMADol [Ultram] 50 mg PO Q6HR PRN #12 tablet 08/03/17 Unknown Rx Acetaminophen [Acetaminophen TAB] 500 mg PO Q6HR PRN #25 tablet 04/30/18 Unknown Rx traMADol [Ultram 50 MG tab] 50 mg PO Q6HR PRN #8 tablet 04/30/18 Unknown Rx Allergies Allergy/AdvReac Type Severity Reaction Status Date / Time codeine AdvReac Dizziness Verified 01/03/17 16:15 ED Review of Systems ROS: Stated complaint: HIGH BLOOD SUGAR Other details as noted in HPI ED Past Medical Hx - Past Medical History Hx Hypertension: Yes Hx CVA: No Hx Heart Attack/AMI: No Hx Congestive Heart Failure: No Hx Diabetes: Yes Hx Deep Vein Thrombosis: No Hx Pulmonary Embolism: No Hx GERD: No Hx Liver Disease: No Hx Renal Disease: No Hx Sickle Cell Disease: No Hx Arthritis: Yes Hx Headaches / Migraines: No Hx Seizures: No Hx Kidney Stones: No Hx Psychiatric Treatment: No Hx Asthma: No Hx COPD: No Hx Dementia: No Hx HIV: No Additional medical history: cholesterol - Surgical History Hx Coronary Stent: No Hx Open Heart Surgery: No Hx Pacemaker: No Hx Internal Defibrillator: No Hx Cholecystectomy: No Hx Appendectomy: No Hx Breast Surgery: No Additional Surgical History: r. knee, and thyroid - Social History Smoking Status: Never Smoker Substance Use Type: None - Medications Home Medications: Home Medications Medication Instructions Recorded Confirmed Last Taken Type Famotidine [Pepcid] 20 mg PO BID 11/19/15 06/06/16 12/07/16 History Simvastatin [Zocor TAB] 40 mg PO QHS 11/19/15 06/06/16 12/07/16 History Valsartan/Hydrochlorothiazide 1 tab PO QDAY 11/19/15 06/06/16 12/07/16 History [Diovan Hct 160-25 mg] metFORMIN [Glucophage] 500 mg PO BID 11/19/15 06/06/16 12/07/16 History Aspirin [Aspirin TAB] 325 mg PO QDAY #30 tablet 11/21/15 06/06/16 12/07/16 Rx Carvedilol [Coreg] 3.125 mg PO BID 06/06/16 06/06/16 12/07/16 History hydrALAZINE 100 mg PO BID 06/06/16 06/06/16 12/07/16 History Potassium Chloride 10 meq PO QDAY 12/07/16 12/07/16 12/07/16 History Ibuprofen [Motrin] 600 mg PO Q8H PRN #15 tablet 08/03/17 Unknown Rx methOCARBAMOL [Robaxin TAB] 500 mg PO Q6H PRN #15 tablet 08/03/17 Unknown Rx traMADol [Ultram] 50 mg PO Q6HR PRN #12 tablet 08/03/17 Unknown Rx Acetaminophen [Acetaminophen TAB] 500 mg PO Q6HR PRN #25 tablet 04/30/18 Unknown Rx traMADol [Ultram 50 MG tab] 50 mg PO Q6HR PRN #8 tablet 04/30/18 Unknown Rx ED Physical Exam - General Limitations: No Limitations General appearance: alert, in no apparent distress - Head Head exam: Present: atraumatic, normocephalic - Eye Eye exam: Present: normal appearance - ENT ENT exam: Present: mucous membranes moist - Neck Neck exam: Present: normal inspection - Respiratory Respiratory exam: Present: normal lung sounds bilaterally. Absent: respiratory distress - Cardiovascular Cardiovascular Exam: Present: regular rate, normal rhythm. Absent: systolic murmur, diastolic murmur, rubs, gallop - GI/Abdominal GI/Abdominal exam: Present: soft, normal bowel sounds - Extremities Exam Extremities exam: Present: normal inspection - Back Exam Back exam: Present: normal inspection - Neurological Exam Neurological exam: Present: alert, oriented X3 - Psychiatric Psychiatric exam: Present: normal affect, normal mood - Skin Skin exam: Present: warm, dry, intact, normal color. Absent: rash ED Course Vital Signs 04/30/18 04/30/18 11:40 13:01 Temperature 97.5 F L Pulse Rate 87 87 Respiratory 20 Rate Blood Pressure 190/85 190/85 O2 Sat by Pulse 96 Oximetry ED Medical Decision Making - Medical Decision Making A/P: Acute on chronic left shoulder pain 1-no clinical signs of infection. Range of motion is preserved. 2-blood pressure is normalized. Patient has no symptoms suggestive of acute cardiac event. 3-EKG is unchanged from prior, Dr. Huggins reviewed this with me. 4-Tylenol when necessary, short course tramadol. Patient states she has had this before without a significant reaction Critical care attestation.: If time is entered above; I have spent that time in minutes in the direct care of this critically ill patient, excluding procedure time. ED Disposition Clinical Impression: Chronic left shoulder pain Hypertension Qualifiers: Hypertension type: unspecified Qualified Code(s): I10 - Essential (primary) hypertension Disposition: TO HOME OR SELFCARE Is pt being admited?: No Does the pt Need Aspirin: No Condition: Stable Instructions: Hypertension (ED), Arthralgia (ED) Prescriptions: Acetaminophen [Acetaminophen TAB] 500 mg PO Q6HR PRN #25 tablet PRN Reason: Pain traMADol [Ultram 50 MG tab] 50 mg PO Q6HR PRN #8 tablet PRN Reason: Pain Referrals: CHI LEVY MD [Primary Care Provider] - 3-5 Days Forms: Accompanied Note Time of Disposition: 14:44
[2018-04-30 15:19] VITALS: BP 158/77
== END 2018-04-30 15:18 | disposition home or self-care (01) ==
LOC: ED 10:13
DX: M25.512 Pain in left shoulder (principal); G89.29 Other chronic pain; I10 Essential (primary) hypertension; E11.9 Type 2 diabetes mellitus without complications; M19.90 Unspecified osteoarthritis, unspecified site; Z88.5 Allergy status to narcotic agent; Z79.82 Long term (current) use of aspirin
CPT/HCPCS: 82962; 93005; 93010

== ENCOUNTER 2018-09-07 08:46 | Emergency (ER) | payer MEDICARE ==
[2018-09-07 10:06] LABS: Bacteria,Urine 1+ /HPF (Negative); Bilirubin,Urine NEG (Negative); Blood,Urine NEG (Negative); Color,Urine Yellow (Yellow); Mucus,Urine FEW /HPF; Protein,Urine <15 mg/dL mg/dL (Negative); Urobilinogen,Urine < 2.0 mg/dL (<2.0)
--- NOTE | 2018-09-07 10:11 | Cat Scan Report ---
CT HEAD WITHOUT CONTRAST: HISTORY: Headache. TECHNIQUE: Sequential CT images without contrast. FINDINGS: Images obtained show bilateral prominence of the sulci and ventricles. There are no abnormal intra- or extra-axial blood or fluid collections. There are no focal masses or evidence of mass effect. The espinal white matter differentiation appears within normal limits. Regions of periventricular decreased attenuation are consistent with microangiopathic ischemic disease. The posterior fossa structures including the fourth ventricle, cerebellum, and brainstem appear normal. IMPRESSION: Evidence of atrophy and microangiopathic ischemic disease. No acute intracranial process noted. No significant change since 01/03/17.
[2018-09-07 10:16] LABS: Basophils % (Auto) 0.5 % (0.0-1.8); Eosinophils # (Auto) 0.1 K/mm3 (0.0-0.4); Eosinophils % (Auto) 1.5 % (0.0-4.3); Hemoglobin 14.3 gm/dl (10.1-14.3); Lymphocytes # (Auto) 2.6 K/mm3 (1.2-5.4); Lymphocytes % (Auto) 44.1 % (13.4-35.0); Mean Corpuscular HGB Conc 34 % (30-34); Mean Corpuscular Hemoglobin 30 pg (28-32); Mean Corpuscular Volume 89 fl (79-97); Monocytes # (Auto) 0.4 K/mm3 (0.0-0.8); Monocytes % (Auto) 6.6 % (0.0-7.3); Platelet Count 284 K/mm3 (140-440); Red Blood Count 4.73 M/mm3 (3.65-5.03); Red Cell Distribution Width 14.6 % (13.2-15.2)
--- NOTE | 2018-09-07 10:19 | Emergency Department Report ---
ED Headache HPI - General Chief Complaint: Headache Stated Complaint: HEAD PAIN Time Seen by Provider: 09/07/18 09:20 Source: patient - History of Present Illness Initial Comments: 83-year-old female reports headache 1 week. Patient states feels like something is pinching her inside her head. Patient states sensation is primarily on right side of the head but sometimes radiates over to the left side as well. Patient denies fever, nausea, vomiting, dizziness, numbness. Patient states pain is sharp and intermittent lasting only 1-2 seconds at a time Timing/Duration: 1 week Quality: mild Recent Head Trauma: no recent headache/trauma Associated Symptoms: denies: fever/chills, nausea/vomiting, nasal congestion, numbness in legs/feet, vision changes, weakness Allergies/Adverse Reactions: Allergies codeine Adverse Reaction (Verified 09/07/18 08:51) Dizziness Home Medications: Ambulatory Orders Famotidine [Pepcid] 20 mg PO BID 11/19/15 Simvastatin [Zocor TAB] 40 mg PO QHS 11/19/15 Valsartan/Hydrochlorothiazide [Diovan Hct 160-25 mg] 1 tab PO QDAY 11/19/15 metFORMIN [Glucophage] 500 mg PO BID 11/19/15 Aspirin [Aspirin TAB] 325 mg PO QDAY #30 tablet 11/21/15 Carvedilol [Coreg] 3.125 mg PO BID 06/06/16 hydrALAZINE 100 mg PO BID 06/06/16 Potassium Chloride 10 meq PO QDAY 12/07/16 Ibuprofen [Motrin] 600 mg PO Q8H PRN #15 tablet 08/03/17 methOCARBAMOL [Robaxin TAB] 500 mg PO Q6H PRN #15 tablet 08/03/17 traMADol [Ultram] 50 mg PO Q6HR PRN #12 tablet 08/03/17 Acetaminophen [Acetaminophen TAB] 500 mg PO Q6HR PRN #25 tablet 04/30/18 traMADol [Ultram 50 MG tab] 50 mg PO Q6HR PRN #8 tablet 04/30/18 Naproxen [Naprosyn] 500 mg PO BID PRN #20 tablet 09/07/18 ED Review of Systems ROS: Stated complaint: HEAD PAIN Other details as noted in HPI Comment: All other systems reviewed and negative Constitutional: denies: fever ENT: denies: congestion Respiratory: denies: cough Cardiovascular: denies: chest pain Gastrointestinal: denies: nausea, vomiting Genitourinary: denies: frequency Neurological: headache. denies: weakness, numbness ED Past Medical Hx - Past Medical History Hx Hypertension: Yes Hx CVA: No Hx Heart Attack/AMI: No Hx Congestive Heart Failure: No Hx Diabetes: Yes Hx Deep Vein Thrombosis: No Hx Pulmonary Embolism: No Hx GERD: No Hx Liver Disease: No Hx Renal Disease: No Hx Sickle Cell Disease: No Hx Arthritis: Yes Hx Headaches / Migraines: No Hx Seizures: No Hx Kidney Stones: No Hx Psychiatric Treatment: No Hx Asthma: No Hx COPD: No Hx Dementia: No Hx HIV: No Additional medical history: cholesterol - Surgical History Hx Coronary Stent: No Hx Open Heart Surgery: No Hx Pacemaker: No Hx Internal Defibrillator: No Hx Cholecystectomy: No Hx Appendectomy: No Hx Breast Surgery: No Additional Surgical History: r. knee, and thyroid - Social History Smoking Status: Never Smoker Substance Use Type: None - Medications Home Medications: Home Medications Medication Instructions Recorded Confirmed Last Taken Type Famotidine [Pepcid] 20 mg PO BID 11/19/15 06/06/16 12/07/16 History Simvastatin [Zocor TAB] 40 mg PO QHS 11/19/15 06/06/16 12/07/16 History Valsartan/Hydrochlorothiazide 1 tab PO QDAY 11/19/15 06/06/16 12/07/16 History [Diovan Hct 160-25 mg] metFORMIN [Glucophage] 500 mg PO BID 11/19/15 06/06/16 12/07/16 History Aspirin [Aspirin TAB] 325 mg PO QDAY #30 tablet 11/21/15 06/06/16 12/07/16 Rx Carvedilol [Coreg] 3.125 mg PO BID 06/06/16 06/06/16 12/07/16 History hydrALAZINE 100 mg PO BID 06/06/16 06/06/16 12/07/16 History Potassium Chloride 10 meq PO QDAY 12/07/16 12/07/16 12/07/16 History Ibuprofen [Motrin] 600 mg PO Q8H PRN #15 tablet 08/03/17 Unknown Rx methOCARBAMOL [Robaxin TAB] 500 mg PO Q6H PRN #15 tablet 08/03/17 Unknown Rx traMADol [Ultram] 50 mg PO Q6HR PRN #12 tablet 08/03/17 Unknown Rx Acetaminophen [Acetaminophen TAB] 500 mg PO Q6HR PRN #25 tablet 04/30/18 Unknown Rx traMADol [Ultram 50 MG tab] 50 mg PO Q6HR PRN #8 tablet 04/30/18 Unknown Rx Naproxen [Naprosyn] 500 mg PO BID PRN #20 tablet 09/07/18 Unknown Rx ED Physical Exam - General Limitations: No Limitations General appearance: alert, in no apparent distress - Head Head exam: Present: atraumatic, normocephalic, normal inspection - Eye Eye exam: Present: normal appearance, PERRL, EOMI - ENT ENT exam: Present: mucous membranes moist - Neck Neck exam: Present: normal inspection. Absent: tenderness, meningismus - Respiratory Respiratory exam: Present: normal lung sounds bilaterally. Absent: respiratory distress - Cardiovascular Cardiovascular Exam: Present: regular rate, normal rhythm - GI/Abdominal GI/Abdominal exam: Present: soft. Absent: tenderness - Extremities Exam Extremities exam: Present: normal inspection - Neurological Exam Neurological exam: Present: alert, oriented X3, CN II-XII intact. Absent: motor sensory deficit - Psychiatric Psychiatric exam: Present: normal affect, normal mood - Skin Skin exam: Present: warm, dry, intact, normal color ED Course Vital Signs 09/07/18 09/07/18 08:51 11:49 Temperature 97.9 F 98.5 F Pulse Rate 96 H 79 Respiratory 18 16 Rate Blood Pressure 188/81 Blood Pressure 152/85 [Left] O2 Sat by Pulse 97 99 Oximetry ED Medical Decision Making - Lab Data Result diagrams: 09/07/18 10:00 09/07/18 10:00 - Radiology Data Radiology results: report reviewed, image reviewed CT Head: neg acute - Medical Decision Making 83-year-old female with headache. Labs, CT head unremarkable. Pt with no neuro deficits on exam. Blood pressure elevated however, patient states has not taken her blood pressure medicine this morning. States will take it when she gets home. Repeat blood pressure slightly improved. Will give prescription for Naprosyn. CBC follow-up. Return precautions given - Differential Diagnosis tension GALLARDO, paresthesias, intracranial abnormailty Critical care attestation.: If time is entered above; I have spent that time in minutes in the direct care of this critically ill patient, excluding procedure time. ED Disposition Clinical Impression: Headache Disposition: DC-01 TO HOME OR SELFCARE Is pt being admited?: No Condition: Stable Instructions: Acute Headache (ED) Prescriptions: Naproxen [Naprosyn] 500 mg PO BID PRN #20 tablet PRN Reason: pain Referrals: PRIMARY CARE, [Primary Care Provider] - 3-5 Days Time of Disposition: 10:42
[2018-09-07 10:31] LABS: BUN/Creatinine Ratio 24; Blood Urea Nitrogen 17 mg/dL (7-17); Calcium 9.5 mg/dL (8.4-10.2); Hemolysis Index 7
[2018-09-07 11:51] VITALS: BP 152/85
== END 2018-09-07 11:49 | disposition home or self-care (01) ==
LOC: ED 08:46
DX: R51 Headache (principal); I10 Essential (primary) hypertension; E11.9 Type 2 diabetes mellitus without complications; M19.90 Unspecified osteoarthritis, unspecified site; Z88.5 Allergy status to narcotic agent; Z79.84 Long term (current) use of oral hypoglycemic drugs
CPT/HCPCS: 36415; 70450; 80048; 81001; 85025; 99284

== ENCOUNTER 2019-03-11 07:01 | Inpatient (IN) | payer MEDICARE, MEDICAID ==
[2019-03-11] MEDS ORDERED: ASPIRIN PO ONE (07:13)
[2019-03-11 07:30] LABS: Basophils % (Auto) 0.7 % (0.0-1.8); Eosinophils # (Auto) 0.1 K/mm3 (0.0-0.4); Eosinophils % (Auto) 1.4 % (0.0-4.3); Hematocrit 41.1 % (30.3-42.9); Hemoglobin 14.1 gm/dl (10.1-14.3); Lymphocytes # (Auto) 2.1 K/mm3 (1.2-5.4); Lymphocytes % (Auto) 33.6 % (13.4-35.0); Mean Corpuscular HGB Conc 34 % (30-34); Mean Corpuscular Volume 87 fl (79-97); Monocytes # (Auto) 0.5 K/mm3 (0.0-0.8); Monocytes % (Auto) 8.9 % (0.0-7.3); Platelet Count 249 K/mm3 (140-440); Red Blood Count 4.75 M/mm3 (3.65-5.03); Red Cell Distribution Width 15.1 % (13.2-15.2)
[2019-03-11 07:48] LABS: BUN/Creatinine Ratio 21; Blood Urea Nitrogen 15 mg/dL (7-17); Calcium 9.9 mg/dL (8.4-10.2); Hemolysis Index 8
--- NOTE | 2019-03-11 07:53 | XRay Report ---
AP CHEST: HISTORY: chest pain Compared to 12/07/16. There are differences in level of inspiration but heart size appears slightly increased since the previous exam. Heart size and pulmonary veins are borderline. Mild aortic calcifications are stable. The lungs are generally clear. No large infiltrate, pleural effusion or pneumothorax. IMPRESSION: Borderline heart size. Lungs clear.
[2019-03-11] MEDS ORDERED: ZOFRAN IV PRN (09:12)
[2019-03-11] MEDS ORDERED: SODIUM CHLORIDE FLUSH SYRINGE 10 ML IV PRN (09:12)
[2019-03-11] MEDS ORDERED: TYLENOL PO PRN (09:12)
[2019-03-11] MEDS ORDERED: MORPHINE IV PRN (09:12)
--- NOTE | 2019-03-11 09:12 | Emergency Department Report ---
ED Chest Pain HPI - General Chief Complaint: Chest Pain Stated Complaint: CP Time Seen by Provider: 03/11/19 08:08 Source: family Mode of arrival: Ambulatory Limitations: No Limitations - History of Present Illness Initial Comments: Patient is a 83-year-old I[place]ian female who is presenting with chest pain for last 2 days. Patient states pain is intermittent and last up to 10 minutes at a time. States it's a soreness in the left chest with radiation to left shoulder. She denies any shortness of breath fevers chills cough cold or congestion. Patient does have a history of hypertension as well as diabetes. Patient states that she's noted that her blood sugars been higher than normal S2 to 3 days. Patient denies any fever or urinary frequency or dysuria. Patient states that she had a mild headache yesterday but this is resolved. Severity scale (0 -10): 8 - Related Data Home Medications Medication Instructions Recorded Confirmed Last Taken Famotidine [Pepcid] 20 mg PO BID 11/19/15 06/06/16 09/15/18 09:00 Simvastatin [Zocor TAB] 40 mg PO QHS 11/19/15 09/16/18 09/15/18 21:00 Valsartan/Hydrochlorothiazide 1 tab PO QDAY 11/19/15 09/16/18 09/15/18 09:00 [Diovan Hct 160-25 mg] metFORMIN [Glucophage] 500 mg PO BID 11/19/15 09/16/18 09/15/18 09:00 500mg hydrALAZINE 100 mg PO BID 06/06/16 09/16/18 09/15/18 09:00 Potassium Chloride 10 meq PO QDAY 12/07/16 09/16/18 09/15/18 09:00 Previous Rx's Medication Instructions Recorded Last Taken Type Aspirin [Aspirin TAB] 325 mg PO QDAY #30 tablet 11/21/15 09/15/18 09:00 Rx methOCARBAMOL [Robaxin TAB] 500 mg PO Q6H PRN #15 tablet 08/03/17 Unknown Rx traMADol [Ultram 50 MG tab] 50 mg PO Q6HR PRN #12 tablet 08/03/17 Unknown Rx Acetaminophen [Acetaminophen TAB] 500 mg PO Q6HR PRN #25 tablet 04/30/18 Unknown Rx traMADol [Ultram 50 MG tab] 50 mg PO Q6HR PRN #8 tablet 04/30/18 Unknown Rx Naproxen [Naprosyn TAB] 500 mg PO BID PRN #20 tablet 09/07/18 Unknown Rx Carvedilol [Coreg] 12.5 mg PO BID #60 tablet 09/16/18 Unknown Rx Allergies Allergy/AdvReac Type Severity Reaction Status Date / Time codeine AdvReac Dizziness Verified 09/07/18 08:51 Heart Score - HEART Score History: Moderately suspicious EKG: Non-specific Age: > 65 Risk factors: > 3 risk factors or hx of atherosclerotic disease Troponin: < normal limit HEART Score: 6 ED Review of Systems ROS: Stated complaint: CP Other details as noted in HPI Comment: All other systems reviewed and negative ED Past Medical Hx - Past Medical History Previous Medical History?: Yes Hx Hypertension: Yes Hx CVA: No Hx Heart Attack/AMI: No Hx Congestive Heart Failure: No Hx Diabetes: Yes Hx Deep Vein Thrombosis: No Hx Pulmonary Embolism: No Hx GERD: No Hx Liver Disease: No Hx Renal Disease: No Hx Sickle Cell Disease: No Hx Arthritis: Yes Hx Headaches / Migraines: No Hx Seizures: No Hx Kidney Stones: No Hx Psychiatric Treatment: No Hx Asthma: No Hx COPD: No Hx Dementia: No Hx HIV: No Additional medical history: cholesterol, Thyroid problems - Surgical History Past Surgical History?: Yes Hx Coronary Stent: No Hx Open Heart Surgery: No Hx Pacemaker: No Hx Internal Defibrillator: No Hx Cholecystectomy: No Hx Appendectomy: No Hx Breast Surgery: No Additional Surgical History: r. knee, and thyroid - Social History Smoking Status: Never Smoker Substance Use Type: None - Medications Home Medications: Home Medications Medication Instructions Recorded Confirmed Last Taken Type Famotidine [Pepcid] 20 mg PO BID 11/19/15 06/06/16 09/15/18 09:00 History Simvastatin [Zocor TAB] 40 mg PO QHS 11/19/15 09/16/18 09/15/18 21:00 History Valsartan/Hydrochlorothiazide 1 tab PO QDAY 11/19/15 09/16/18 09/15/18 09:00 History [Diovan Hct 160-25 mg] metFORMIN [Glucophage] 500 mg PO BID 11/19/15 09/16/18 09/15/18 09:00 History 500mg Aspirin [Aspirin TAB] 325 mg PO QDAY #30 tablet 11/21/15 09/16/18 09/15/18 09:00 Rx hydrALAZINE 100 mg PO BID 06/06/16 09/16/18 09/15/18 09:00 History Potassium Chloride 10 meq PO QDAY 12/07/16 09/16/18 09/15/18 09:00 History methOCARBAMOL [Robaxin TAB] 500 mg PO Q6H PRN #15 tablet 08/03/17 09/16/18 Unknown Rx traMADol [Ultram 50 MG tab] 50 mg PO Q6HR PRN #12 tablet 08/03/17 09/16/18 Unknown Rx Acetaminophen [Acetaminophen TAB] 500 mg PO Q6HR PRN #25 tablet 04/30/18 09/16/18 Unknown Rx traMADol [Ultram 50 MG tab] 50 mg PO Q6HR PRN #8 tablet 04/30/18 09/16/18 Unknown Rx Naproxen [Naprosyn TAB] 500 mg PO BID PRN #20 tablet 09/07/18 09/16/18 Unknown Rx Carvedilol [Coreg] 12.5 mg PO BID #60 tablet 09/16/18 Unknown Rx ED Physical Exam - General Limitations: No Limitations General appearance: alert, in no apparent distress - Head Head exam: Present: atraumatic, normocephalic - Eye Eye exam: Present: normal appearance - ENT ENT exam: Present: mucous membranes moist - Neck Neck exam: Present: normal inspection - Respiratory Respiratory exam: Present: normal lung sounds bilaterally. Absent: respiratory distress, wheezes, rales, rhonchi - Cardiovascular Cardiovascular Exam: Present: regular rate, normal rhythm. Absent: systolic murmur, diastolic murmur, rubs, gallop - GI/Abdominal GI/Abdominal exam: Present: soft, normal bowel sounds. Absent: distended, tenderness, guarding, rebound - Extremities Exam Extremities exam: Present: normal inspection - Back Exam Back exam: Present: normal inspection - Neurological Exam Neurological exam: Present: alert, oriented X3 - Psychiatric Psychiatric exam: Present: normal affect, normal mood - Skin Skin exam: Present: warm, dry, intact, normal color. Absent: rash ED Course Vital Signs 03/11/19 03/11/19 07:07 07:55 Temperature 97.7 F Pulse Rate 82 Respiratory 20 18 Rate Blood Pressure 177/90 O2 Sat by Pulse 98 99 Oximetry BRYAN score - Bryan Score Age > 65: (1) Yes Aspirin use within the Past 7 Days: (1) Yes 3 or more CAD Risk Factors: (1) Yes 2 or more Angina events in past 24 hrs: (0) No Known CAD with more than 50% Stenosis: (0) No Elevated Cardiac Markers: (0) No ST Deviation Greater than 0.5mm: (0) No BRYAN Score: 3 ED Medical Decision Making - Lab Data Result diagrams: 03/11/19 07:15 03/11/19 07:15 Lab Results 03/11/19 03/11/19 Range/Units 07:15 07:15 WBC 6.1 (4.5-11.0) K/mm3 RBC 4.75 (3.65-5.03) M/mm3 Hgb 14.1 (10.1-14.3) gm/dl Hct 41.1 (30.3-42.9) % MCV 87 (79-97) fl MCH 30 (28-32) pg MCHC 34 (30-34) % RDW 15.1 (13.2-15.2) % Plt Count 249 (140-440) K/mm3 Lymph % (Auto) 33.6 (13.4-35.0) % Garvin % (Auto) 8.9 H (0.0-7.3) % Eos % (Auto) 1.4 (0.0-4.3) % Baso % (Auto) 0.7 (0.0-1.8) % Lymph # 2.1 (1.2-5.4) K/mm3 Garvin # 0.5 (0.0-0.8) K/mm3 Eos # 0.1 (0.0-0.4) K/mm3 Baso # 0.0 (0.0-0.1) K/mm3 Seg Neutrophils % 55.4 (40.0-70.0) % Seg Neutrophils # 3.4 (1.8-7.7) K/mm3 Sodium 136 L (137-145) mmol/L Potassium 3.9 (3.6-5.0) mmol/L Chloride 98.4 (98-107) mmol/L Carbon Dioxide 26 (22-30) mmol/L Anion Gap 16 mmol/L BUN 15 (7-17) mg/dL Creatinine 0.7 (0.7-1.2) mg/dL Estimated GFR > 60 ml/min BUN/Creatinine Ratio 21 % Glucose 298 H (65-100) mg/dL Calcium 9.9 (8.4-10.2) mg/dL Troponin T < 0.010 (0.00-0.029) ng/mL - EKG Data -: EKG Interpreted by In - EKG Data 03/11/19 09:11 EKG shows normal sinus rhythm with a rate of 79. [place] is normal intervals are normal. There is evidence of LVH. There is no ST segment elevations or depressions. Time of interpretation is 709 - Radiology Data Radiology results: report reviewed (chest x-ray is within normal limits) - Medical Decision Making Patient is a 83-year-old female heart score 6 was presenting with some chest discomfort. Patient states that the pain is intermittent and she is chest pain- free at this time. Because of the patient's elevated heart score patient will be admitted to the hospital. Patient was never had a cardiac cath. Her last thallium stress test was negative and this was performed on August 2018. Critical Care Time: Yes (30) Critical care attestation.: If time is entered above; I have spent that time in minutes in the direct care of this critically ill patient, excluding procedure time. ED Disposition Clinical Impression: Chest pain, Hypertensive urgency, malignant, Hyperglycemia Disposition: 09 OP ADMIT IP TO THIS HOSP Is pt being admited?: Yes Does the pt Need Aspirin: No Condition: Stable Instructions: Chest Pain (ED) Time of Disposition: 09:12
[2019-03-11] MEDS ORDERED: COLACE ONE (10:35)
[2019-03-11] MEDS: COLACE PO SCH ×2 (10:35→21:39)
[2019-03-11] MEDS ORDERED: ASPIRIN ONE (10:35)
[2019-03-11] MEDS: SODIUM CHLORIDE FLUSH SYRINGE 10 ML IV SCH ×2 (11:45→21:42)
[2019-03-11] MEDS ORDERED: D50W (25GM) Syringe IV PRN (11:49)
--- NOTE | 2019-03-11 11:59 | Consultation ---
History of Present Illness Consult date: 03/11/19 Requesting physician: DAVID ARGUETA History of present illness: The pt is an 83-year-old [place] female with a past medical history of HTN and DM. She is previously unknown to our practice. She presented with complaints of headache and chest pain for the past several days. Patient states pain is intermittent and lasts up to 10 minutes at a time. States it's a soreness in the left chest with radiation to left shoulder. She denies any other cardiac complaints. Pt underwent lexiscan MPI stress test 08/2018 which was negative. Echo done 11/2015 showed EF 65%, mod LVH, mild MR, mild TR. Past History Past Medical History: diabetes, hypertension Medications and Allergies Allergies Allergy/AdvReac Type Severity Reaction Status Date / Time codeine AdvReac Dizziness Verified 09/07/18 08:51 Home Medications Medication Instructions Recorded Confirmed Last Taken Type Famotidine [Pepcid] 20 mg PO BID 11/19/15 06/06/16 09/15/18 09:00 History Simvastatin [Zocor TAB] 40 mg PO QHS 11/19/15 09/16/18 09/15/18 21:00 History Valsartan/Hydrochlorothiazide 1 tab PO QDAY 11/19/15 09/16/18 09/15/18 09:00 History [Diovan Hct 160-25 mg] metFORMIN [Glucophage] 500 mg PO BID 11/19/15 09/16/18 09/15/18 09:00 History 500mg Aspirin [Aspirin TAB] 325 mg PO QDAY #30 tablet 11/21/15 09/16/18 09/15/18 09:00 Rx hydrALAZINE 100 mg PO BID 06/06/16 09/16/18 09/15/18 09:00 History Potassium Chloride 10 meq PO QDAY 12/07/16 09/16/18 09/15/18 09:00 History methOCARBAMOL [Robaxin TAB] 500 mg PO Q6H PRN #15 tablet 08/03/17 09/16/18 Unknown Rx traMADol [Ultram 50 MG tab] 50 mg PO Q6HR PRN #12 tablet 08/03/17 09/16/18 Unknown Rx Acetaminophen [Acetaminophen TAB] 500 mg PO Q6HR PRN #25 tablet 04/30/18 09/16/18 Unknown Rx traMADol [Ultram 50 MG tab] 50 mg PO Q6HR PRN #8 tablet 04/30/18 09/16/18 Unk nown Rx Naproxen [Naprosyn TAB] 500 mg PO BID PRN #20 tablet 09/07/18 09/16/18 Unknown Rx Carvedilol [Coreg] 12.5 mg PO BID #60 tablet 09/16/18 Unknown Rx Active Meds: Active Medications Acetaminophen (Tylenol) 650 mg PO Q4H PRN PRN Reason: Pain MILD(1-3)/Fever >100.5/GALLARDO Dextrose (D50w (25gm) Syringe) 50 ml IV PRN PRN PRN Reason: Hypoglycemia Docusate Sodium (Colace) 100 mg PO BID [facility] Last Admin: 03/11/19 10:35 Dose: 100 mg Documented by: Enoxaparin Sodium (Lovenox) 40 mg SUB-Q QDAY@2200 ALICE Insulin Human Lispro (Humalog) 0 unit SUB-Q [facility]; Protocol Morphine Sulfate (Morphine) 2 mg IV Q4H PRN PRN Reason: Pain, Moderate (4-6) Stop: 03/12/19 23:59 Ondansetron HCl (Zofran) 4 mg IV Q8H PRN PRN Reason: Nausea And Vomiting Sodium Chloride (Sodium Chloride Flush Syringe 10 Ml) 10 ml IV PRN PRN PRN Reason: LINE FLUSH Sodium Chloride (Sodium Chloride Flush Syringe 10 Ml) 10 ml IV BID [facility] Review of Systems Constitutional: no weight loss, no weight gain, no fever, no chills, no sweats Ears, nose, mouth and throat: no ear pain, no nose pain, no sinus pressure, no sinus pain Cardiovascular: chest pain, no orthopnea, no palpitations, no rapid/irregular heart beat, no edema, no syncope, no lightheadedness, no shortness of breath, no dyspnea on exertion Respiratory: no cough, no shortness of breath, no dyspnea on exertion, no congestion, no wheezing, no pain on inspiration Gastrointestinal: no abdominal pain, no nausea, no vomiting, no diarrhea, no constipation, no change in bowel habits Genitourinary Female: no pelvic pain, no flank pain, no dysuria, no urinary fr equency, no urgency Musculoskeletal: no neck stiffness, no neck pain, no shooting arm pain, no arm numbness/tingling, no low back pain, no shooting leg pain Integumentary: no rash, no pruritis, no redness, no sores, no wounds Neurological: no head injury, no paralysis, no weakness, no parathesias, no numbness, no tingling, no seizures, no syncope Psychiatric: no anxiety Endocrine: high blood sugars, no cold intolerance, no heat intolerance Hematologic/Lymphatic: no easy bruising Allergic/Immunologic: no urticaria, no wheezing Physical Examination Vital Signs Temp Pulse Resp BP Pulse Ox 97.7 F 82 20 177/90 98 03/11/19 07:07 03/11/19 07:07 03/11/19 07:07 03/11/19 07:07 03/11/19 07:07 General appearance: no acute distress HEENT: Positive: PERRL, Normocephaly, Mucus Membranes Moist Neck: Positive: neck supple, trachea midline Cardiac: Positive: Reg Rate and Rhythm, S1/S2 Lungs: Positive: clear to auscultation Neuro: Positive: Grossly Intact Abdomen: Positive: Soft. Negative: Tender Skin: Negative: Rash Musculoskeletal: No Pain Extremities: Absent: edema Results 03/11/19 07:15 03/11/19 07:15 CBC 03/11/19 Range/Units 07:15 WBC 6.1 (4.5-11.0) K/mm3 RBC 4.75 (3.65-5.03) M/mm3 Hgb 14.1 (10.1-14.3) gm/dl Hct 41.1 (30.3-42.9) % Plt Count 249 (140-440) K/mm3 Lymph # 2.1 (1.2-5.4) K/mm3 Iron # 0.5 (0.0-0.8) K/mm3 Eos # 0.1 (0.0-0.4) K/mm3 Baso # 0.0 (0.0-0.1) K/mm3 Comprehensive Metabolic Panel 03/11/19 Range/Units 07:15 Sodium 136 L (137-145) mmol/L Potassium 3.9 (3.6-5.0) mmol/L Chloride 98.4 (98-107) mmol/L Carbon Dioxide 26 (22-30) mmol/L BUN 15 (7-17) mg/dL Creatinine 0.7 (0.7-1.2) mg/dL Glucose 298 H (65-100) mg/dL Calcium 9.9 (8.4-10.2) mg/dL - Imaging and Cardiology Echo: report reviewed (11/2015 showed EF 65%, mod LVH, mild MR, mild TR. ) EKG: report reviewed, image reviewed EKG interpretations - Telemetry EKG Rhythm: Sinus Rhythm - EKG Sinus rhythms and dysrhythmias: sinus rhythm Chamber hypertrophy or enlargement: left ventricular hypertro Assessment and Plan Pt presented with c/o recurrent chest pain. Pt underwent lexiscan MPI stress test 08/2018 which was negative. Echo done 11/2015 showed EF 65%, mod LVH, mild MR, mild TR. ECG with no acute ischemic changes, Byron negative for AMI. Coronary angiography recommended for definitive diagnosis. Indications, potential risks and benefits of LHC reviewed with pt and with pt's daughter via telephone and they are agreeable to proceed. NPO after MN. F/u echo. Optimize anti-hypertensive and anti-ischemic regimen. The patient has been seen in conjunction with Dr. Clark who agrees with the assessment and plan of care. - Patient Problems (1) Recurrent chest pain Current Visit: Yes Status: Acute (2) Accelerated hypertension Current Visit: Yes Status: Acute (3) Diabetes mellitus with hyperglycemia Current Visit: Yes Status: Acute
[2019-03-11] MEDS ORDERED: NACL 0.9% 500 ML 500 ML IV SCH (12:04)
--- NOTE | 2019-03-11 13:12 | History and Physical Report ---
History of Present Illness Date of examination: 03/11/19 Date of admission: 03/11/19 09:12 Chief complaint: Chest Pain History of present illness: Ms. Ferreira is 83-year-old female with a past medical history of HTN and DM who presented to the ED with complaints of headache and chest pain x 1 day. Patient states pain is intermittent and lasts up to 10 minutes at a time. States it's a soreness in the left chest with radiation to left shoulder. She denies any ot her cardiac complaints. Pt underwent lexiscan MPI stress test 08/2018 which was negative. Echo done 11/2015 showed EF 65%, mod LVH, mild MR, mild TR. Past History Past Medical History: diabetes, hypertension Past Surgical History: No surgical history Social history: no significant social history Medications and Allergies Allergies Allergy/AdvReac Type Severity Reaction Status Date / Time codeine AdvReac Dizziness Verified 09/07/18 08:51 Home Medications Medication Instructions Recorded Confirmed Last Taken Type Famotidine [Pepcid] 20 mg PO BID 11/19/15 06/06/16 09/15/18 09:00 History Simvastatin [Zocor TAB] 40 mg PO QHS 11/19/15 09/16/18 09/15/18 21:00 History Valsartan/Hydrochlorothiazide 1 tab PO QDAY 11/19/15 09/16/18 09/15/18 09:00 History [Diovan Hct 160-25 mg] metFORMIN [Glucophage] 500 mg PO BID 11/19/15 09/16/18 09/15/18 09:00 History 500mg Aspirin [Aspirin TAB] 325 mg PO QDAY #30 tablet 11/21/15 09/16/18 09/15/18 09:00 Rx hydrALAZINE 100 mg PO BID 06/06/16 09/16/18 09/15/18 09:00 History Potassium Chloride 10 meq PO QDAY 12/07/16 09/16/18 09/15/18 09:00 History methOCARBAMOL [Robaxin TAB] 500 mg PO Q6H PRN #15 tablet 08/03/17 09/16/18 Unknown Rx traMADol [Ultram 50 MG tab] 50 mg PO Q6HR PRN #12 tablet 08/03/17 09/16/18 Unknown Rx Acetaminophen [Acetaminophen TAB] 500 mg PO Q6HR PRN #25 tablet 04/30/18 09/16/18 Unknown Rx traMADol [Ultram 50 MG tab] 50 mg PO Q6HR PRN #8 tablet 04/30/18 09/16/18 Unknown Rx Naproxen [Naprosyn TAB] 500 mg PO BID PRN #20 tablet 09/07/18 09/16/18 Unknown Rx Carvedilol [Coreg] 12.5 mg PO BID #60 tablet 09/16/18 Unknown Rx Active Meds: Active Medications Acetaminophen (Tylenol) 650 mg PO Q4H PRN PRN Reason: Pain MILD(1-3)/Fever >100.5/GALLARDO Aspirin (Aspirin) 325 mg PO QDAY [facility] Carvedilol (Coreg) 12.5 mg PO BID [facility] Dextrose (D50w (25gm) Syringe) 50 ml IV PRN PRN PRN Reason: Hypoglycemia Docusate Sodium (Colace) 100 mg PO BID [facility] Last Admin: 03/11/19 10:35 Dose: 100 mg Documented by: Enoxaparin Sodium (Lovenox) 40 mg SUB-Q QDAY@2200 [facility] Furosemide (Lasix) 40 mg IV DAILY@0600 [facility] Sodium Chloride (Nacl 0.9% 500 Ml) 500 mls @ 50 mls/hr IV DIRECT [facility] Stop: 03/11/19 22:03 Insulin Human Lispro (Humalog) 0 unit SUB-Q [facility]; Protocol Metformin HCl (Glucophage) 500 mg PO BIDDIAB [facility] Morphine Sulfate (Morphine) 2 mg IV Q4H PRN PRN Reason: Pain, Moderate (4-6) Stop: 03/12/19 23:59 Ondansetron HCl (Zofran) 4 mg IV Q8H PRN PRN Reason: Nausea And Vomiting Pravastatin Sodium (Pravachol) 80 mg PO QHS [facility] Sodium Chloride (Sodium Chloride Flush Syringe 10 Ml) 10 ml IV PRN PRN PRN Reason: LINE FLUSH Sodium Chloride (Sodium Chloride Flush Syringe 10 Ml) 10 ml IV BID [facility] Last Admin: 03/11/19 11:45 Dose: 10 ml Documented by: Review of Systems Constitutional: no weight loss, no weight gain, no fever, no chills, no sweats, no poor appetite Ears, nose, mouth and throat: no ear discharge, no tinnitis, no decreased hearing Breasts: deferred Cardiovascular: chest pain, no orthopnea, no palpitations, no shortness of breath Respiratory: no cough, no cough with sputum, no hemoptysis, no shortness of breath Gastrointestinal: no abdominal pain, no nausea, no vomiting, no diarrhea, no constipation Genitourinary Female: no dyspareunia, no dysuria, no urinary frequency, no ur gency Menstruation: no postmenopausal Rectal: no pain, no incontinence, no itching Musculoskeletal: no neck stiffness, no neck pain, no low back pain, no leg numbness/tingling Integumentary: no rash, no pruritis, no sores Neurological: no weakness, no parathesias, no numbness, no tingling Psychiatric: no anxiety, no memory loss, no change in sleep habits, no sleep disturbances Endocrine: no excessive thirst, no polydipsia, no polyuria, no nocturia Hematologic/Lymphatic: no easy bruising, no easy bleeding Allergic/Immunologic: no allergic rhinitis, no wheezing Exam - Constitutional Vitals: Temp Pulse Resp BP Pulse Ox 97.5 F L 80 18 175/91 94 03/11/19 11:31 03/11/19 10:22 03/11/19 11:31 03/11/19 11:31 03/11/19 10:22 General appearance: Present: no acute distress, well-nourished - EENT Eyes: Present: PERRL, EOM intact ENT: hearing intact, clear oral mucosa - Neck Neck: Present: supple, normal ROM - Respiratory Respiratory effort: normal Respiratory: bilateral: CTA - Cardiovascular Rhythm: regular Heart Sounds: Present: S1 & S2 - Extremities Extremities: no ischemia, pulses intact Extremity abnormal: edema - Peripheral Assessment Lower Extremity Edema Type: Pitting Edema Degree: 2+ Capillary Refill: > 3 seconds Skin Temperature: Warm Peripheral Pulses: within normal limits - Abdominal General gastrointestinal: Present: soft, non-tender, normal bowel sounds Female genitourinary: Present: deferred - Rectal Rectal Exam: deferred - Integumentary Integumentary: Present: clear, warm, dry - Musculoskeletal Musculoskeletal: strength equal bilaterally - Psychiatric Psychiatric: appropriate mood/affect, memory intact - Neurologic Neurologic: CNII-XII intact, moves all extremities Results - Labs CBC & Chem 7: 03/11/19 07:15 03/11/19 07:15 Labs: Laboratory Last Values WBC 6.1 K/mm3 (4.5-11.0) 03/11/19 07:15 RBC 4.75 M/mm3 (3.65-5.03) 03/11/19 07:15 Hgb 14.1 gm/dl (10.1-14.3) 03/11/19 07:15 Hct 41.1 % (30.3-42.9) 03/11/19 07:15 MCV 87 fl (79-97) 03/11/19 07:15 MCH 30 pg (28-32) 03/11/19 07:15 MCHC 34 % (30-34) 03/11/19 07:15 RDW 15.1 % (13.2-15.2) 03/11/19 07:15 Plt Count 249 K/mm3 (140-440) 03/11/19 07:15 Lymph % (Auto) 33.6 % (13.4-35.0) 03/11/19 07:15 [place] % (Auto) 8.9 % (0.0-7.3) H 03/11/19 07:15 Eos % (Auto) 1.4 % (0.0-4.3) 03/11/19 07:15 Baso % (Auto) 0.7 % (0.0-1.8) 03/11/19 07:15 Lymph # 2.1 K/mm3 (1.2-5.4) 03/11/19 07:15 [place] # 0.5 K/mm3 (0.0-0.8) 03/11/19 07:15 Eos # 0.1 K/mm3 (0.0-0.4) 03/11/19 07:15 Baso # 0.0 K/mm3 (0.0-0.1) 03/11/19 07:15 Seg Neutrophils % 55.4 % (40.0-70.0) 03/11/19 07:15 Seg Neutrophils # 3.4 K/mm3 (1.8-7.7) 03/11/19 07:15 Sodium 136 mmol/L (137-145) L 03/11/19 07:15 Potassium 3.9 mmol/L (3.6-5.0) 03/11/19 07:15 Chloride 98.4 mmol/L (98-107) 03/11/19 07:15 Carbon Dioxide 26 mmol/L (22-30) 03/11/19 07:15 Anion Gap 16 mmol/L 03/11/19 07:15 BUN 15 mg/dL (7-17) 03/11/19 07:15 Creatinine 0.7 mg/dL (0.7-1.2) 03/11/19 07:15 Estimated GFR > 60 ml/min 03/11/19 07:15 BUN/Creatinine Ratio 21 % 03/11/19 07:15 Glucose 298 mg/dL (65-100) H 03/11/19 07:15 POC Glucose 352 (70-105) H 03/11/19 11:38 Calcium 9.9 mg/dL (8.4-10.2) 03/11/19 07:15 Troponin T < 0.010 ng/mL (0.00-0.029) 03/11/19 10:06 Assessment and Plan Assessment and plan: Ms. Ferreira is 83-year-old female with a past medical history of HTN and DM who presented to the ED with complaints of headache and chest pain x 1 day. Pt underwent lexiscan MPI stress test 08/2018 which was negative. Echo done 11/2015 showed EF 65%, mod LVH, mild MR, mild TR. Acute chest pain Currently on ASA, BB, Statin Lipid panel pending Left heart cath planned for tomorrow- pt is being worked up for CAD Cardiology consulted and following Hypertension Continue to monitor BP Continue antihypertensive medication to optimize BP Cardiology consulted and following DM 2 Hgb A1c 9.3 Continue POC BG monitoring SSI Coverage Advance Directives: No VTE prophylaxis?: Chemical
[2019-03-11] MEDS: LASIX IV SCH (15:49)
[2019-03-11] MEDS ORDERED: HumuLIN R SUB-Q ONE (16:50)
[2019-03-11] MEDS ORDERED: GLUCOPHAGE PO SCH (17:00)
[2019-03-11] MEDS: HumaLOG SUB-Q SCH ×2 (17:27→21:40)
[2019-03-11] MEDS: PRAVACHOL PO SCH (21:39)
[2019-03-11] MEDS: COREG PO SCH (21:39)
[2019-03-11] MEDS: LOVENOX SUB-Q SCH (21:40)
[2019-03-12 04:59] LABS: Basophils % (Auto) 0.4 % (0.0-1.8); Eosinophils # (Auto) 0.1 K/mm3 (0.0-0.4); Eosinophils % (Auto) 1.7 % (0.0-4.3); Hematocrit 39.9 % (30.3-42.9); Hemoglobin 13.4 gm/dl (10.1-14.3); Lymphocytes # (Auto) 2.5 K/mm3 (1.2-5.4); Lymphocytes % (Auto) 32.4 % (13.4-35.0); Mean Corpuscular HGB Conc 34 % (30-34); Mean Corpuscular Volume 87 fl (79-97); Monocytes # (Auto) 0.8 K/mm3 (0.0-0.8); Monocytes % (Auto) 10.2 % (0.0-7.3); Platelet Count 246 K/mm3 (140-440); Red Blood Count 4.58 M/mm3 (3.65-5.03); Red Cell Distribution Width 15.3 % (13.2-15.2)
[2019-03-12] MEDS: LASIX IV SCH (06:21)
[2019-03-12 06:29] LABS: BUN/Creatinine Ratio 26; Blood Urea Nitrogen 21 mg/dL (7-17); Calcium 9.1 mg/dL (8.4-10.2); Chol/HDL Ratio 3.51 %; HDL Cholesterol 37 mg/dL (40-59); Hemolysis Index 2; LDL Cholesterol,Direct 84 mg/dL (50-130)
[2019-03-12] MEDS ORDERED: ASPIRIN ONE (07:45)
[2019-03-12] MEDS: ASPIRIN PO SCH ×2 (07:45→20:44)
[2019-03-12] MEDS: HumaLOG SUB-Q SCH ×5 (08:00→21:34)
[2019-03-12] MEDS ORDERED: NACL 0.9% 500 ML 500 ML ONE (08:32)
[2019-03-12] MEDS: CALAN ONE ×2 (09:28→09:34)
[2019-03-12] MEDS: VERSED ONE ×2 (09:28→09:31)
[2019-03-12] MEDS: SUBLIMAZE ONE ×3 (09:28→09:36)
[2019-03-12] MEDS: XYLOCAINE 2% INFILTRATI ONE ×2 (09:28→09:33)
[2019-03-12] MEDS: HEPARIN 10,000 UNITS/10 ML ONE ×3 (09:29→09:44)
[2019-03-12] MEDS: HEPARIN/NS 5000 UNIT/500ML(CATH LAB) 1,000 ML IR ONE ×2 (09:30→09:32)
[2019-03-12] MEDS: NITROGLYCERIN SYRINGE 3 ML ONE ×2 (09:33→09:34)
[2019-03-12] MEDS ORDERED: LOPRESSOR IV ONE (09:39)
[2019-03-12] MEDS ORDERED: APRESOLINE ONE (09:43)
[2019-03-12] MEDS ORDERED: HEPARIN/NS 5000 UNIT/500ML(CATH LAB) 500 ML IR ONE (10:08)
[2019-03-12] MEDS ORDERED: PLAVIX ONE (10:15)
[2019-03-12] MEDS ORDERED: ALUM-MAG HYDROX-SIMETH 200-200-20MG/5ML ONE (10:16)
--- NOTE | 2019-03-12 10:47 | Progress Note ---
Assessment and Plan pt bp is better, lhc revealed lt main patent, lad distal 70% systolic bridging prior to lesion (treat medically), lcx patent om1-3 patent, rca mid to distal 90%, pci of rca with sb resolute g[place] 3.5 x 15 mm (two stents overlapping) and normal lv function rec: asa 81 mg and plavix 75 and coreg 12.5 mg bid, add imdur 30mg and add lisinopril 10mg bid for better bp control and post pci care and discuss with pt and daughter in detail. - Patient Problems (1) Acute diastolic (congestive) heart failure Current Visit: Yes Status: Acute (2) Chest pain Current Visit: Yes Status: Acute Qualifiers: Ischemic chest pain type: stable angina pectoris (3) Diabetes mellitus with hyperglycemia Current Visit: Yes Status: Chronic Qualifiers: Diabetes mellitus type: type 2 Diabetes mellitus penitentiary insulin use: with penitentiary use Qualified Code(s): E11.65 - Type 2 diabetes mellitus with hyperglycemia; Z79.4 - USP (current) use of insulin (4) Dyslipidemia associated with type 2 diabetes mellitus Current Visit: No Status: Chronic (5) Hypothyroidism Current Visit: No Status: Chronic Qualifiers: Hypothyroidism type: postoperative Qualified Code(s): E89.0 - Postprocedural hypothyroidism (6) CAD (coronary artery disease) Current Visit: Yes Status: Acute Qualifiers: Coronary Disease-Associated Artery/Lesion type: [place] artery [place] vs. transplanted heart: [place] heart Associated angina: with unstable angina Qualified Code(s): I25.110 - Atherosclerotic heart disease of [place] coronary artery with unstable angina pectoris Subjective Date of service: 03/12/19 Principal diagnosis: chest pain and dhf Interval history: pt states chest pain better Objective Vital Signs Temp Pulse Resp BP Pulse Ox 03/12/19 02:00 86 03/11/19 23:41 98.0 F 85 18 132/69 96 03/11/19 23:00 20 03/11/19 21:39 87 160/72 03/11/19 19:42 98.0 F 87 18 160/72 93 03/11/19 16:22 98.4 F 91 H 20 168/86 96 03/11/19 11:31 97.5 F L 18 175/91 - Physical Examination HEENT: Positive: PERRL, Normocephaly, Mucus Membranes Moist Neck: Positive: neck supple, trachea midline Cardiac: Positive: Reg Rate and Rhythm Lungs: Positive: clear to auscultation Neuro: Positive: Grossly Intact Abdomen: Positive: Soft. Negative: Tender Skin: Negative: Rash Musculoskeletal: No Pain Extremities: Absent: edema - Labs and Meds Coagulation 03/12/19 Range/Units 04:24 PT 13.8 (12.2-14.9) Sec. INR 1.00 (0.87-1.13) Lipids 03/12/19 Range/Units 04:24 Triglycerides 99 (2-149) mg/dL Cholesterol 130 (50-199) mg/dL HDL Cholesterol 37 L (40-59) mg/dL Cholesterol/HDL Ratio 3.51 % CBC 03/12/19 Range/Units 04:24 WBC 7.6 (4.5-11.0) K/mm3 RBC 4.58 (3.65-5.03) M/mm3 Hgb 13.4 (10.1-14.3) gm/dl Hct 39.9 (30.3-42.9) % Plt Count 246 (140-440) K/mm3 Lymph # 2.5 (1.2-5.4) K/mm3 [place] # 0.8 (0.0-0.8) K/mm3 Eos # 0.1 (0.0-0.4) K/mm3 Baso # 0.0 (0.0-0.1) K/mm3 Comprehensive Metabolic Panel 03/12/19 Range/Units 04:24 Sodium 140 (137-145) mmol/L Potassium 3.6 (3.6-5.0) mmol/L Chloride 98.5 (98-107) mmol/L Carbon Dioxide 27 (22-30) mmol/L BUN 21 H (7-17) mg/dL Creatinine 0.8 (0.7-1.2) mg/dL Glucose 239 H (65-100) mg/dL Calcium 9.1 (8.4-10.2) mg/dL - Imaging and Cardiology EKG: report reviewed, image reviewed Echo: report reviewed (11/2015 showed EF 65%, mod LVH, mild MR, mild TR. ) Cardiac cath: report reviewed (lt main patent, lad distal 70% systolic bridging, lcx patent om1-3 patent, rca mid to distal 90%, pci of rca with two sb resolute onxy 3.5 x 15 mm overlapping and normal lv function ) - Telemetry EKG Rhythm: Sinus Rhythm - EKG Sinus rhythms and dysrhythmias: sinus rhythm Chamber hypertrophy or enlargement: left ventricular hypertro
[2019-03-12] MEDS ORDERED: NACL 0.45% 1000 ML 1,000 ML IV SCH (11:00)
[2019-03-12] MEDS ORDERED: NACL 0.45% 1000 ML 1,000 ML IV ONE (11:08)
--- NOTE | 2019-03-12 11:08 | Cardiac Catherization Report ---
LEFT HEART CATHETERIZATION/PERCUTANEOUS CORONARY INTERVENTIONAL/INTRAVASCULAR ULTRASOUND REPORT CLINICAL INFORMATION: This is an 83-year-old Greek female with hypertension, diabetes, cholesterol, has been having chest pain recurrently, several ER admissions, here for suspected coronary artery disease given the patient's risk factors, negative troponin. Consent was obtained via the daughter and risks and benefits. Moderate sedation 0.5 mg Versed and 50 mcg of fentanyl was given. Total sedation time was 39 minutes, started at 9:31 a.m. and finished 10:20. Left heart catheterization was performed via the right radial artery, sterile technique, local anesthesia, 6-Irish radial sheath inserted. Left system engaged with a JL3.5 catheter. Left main is large and patent and then bifurcates to a medium caliber LAD with moderate that are patent from proximal to mid. At the distal portion, there is a systolic bridging and then right after that there is a focal 70% at the distal apical LAD, and diagonal 1 and 2 are small caliber vessel that is patent. Circumflex and AV groove is a medium caliber vessel, patent. OM1, OM2, and OM3 are [id number] caliber vessels that are patent with moderate tortuosity, mild luminal irregularities in the circumflex system noted. RCA engaged with JR4 catheter, proximal 40-50%, mid 60% calcification noted, and mid to distal is a focal 80-90% lesion, bifurcates into medium caliber PDA, PLV, several branches are patent. LV gram shows normal LV function, 12_ mmHg lvedp , LV is 192. Aortic is 192/85. No gradient across the aortic valve on pullback. In view of systolic bridging in the LAD, we will treat medically in the distal LAD lesion around 70%. Percutaneous coronary intervention of the mid to distal RCA: 1. Engaged RCA with a 6-Irish 3RDC catheter. 2. Crossed with a short [place] wire. 3. Ballooned with a 2.5 x 10 balloon x 3 inflations at 10 atmospheres, reduced stenosis down to 50%. 4. Intravascular ultrasound showed calcification of the vessel with focal calcification in the mid RCA, around 60-70% and distal reference vessel 3.5 x 3.5 with diffuse disease. 5. Unable to place a 3.5 x 30 stent. Then, used a obey wire [place], still unable to ass it then ballooned the midportion with a 2.75 x 12 balloon. Still unable to pass it with obey wire and balloon. 6. Then used a smaller Resolute [place] 3.5 x 15, placed into the distal RCA. Removed [place] wire and inflated at 12 atmospheres. 7. Then, rewired with [place] wire and delivered a second 3.5 x 15 drug-eluting Resolute [place] overlapping inflated at 15 atmospheres, removed [place] wire prior. 8. Excellent angiographic result, reduced stenosis 0%, no dissection or perforation. 9. repeat angiograom showed stent was opposed and expanded 10 Coronary wire was removed. Multiple angiograms show excellent angiographic result. Proximal 40-50%, mid to distal stent were placed, reduced stenosis 0%. There was no perforation, no dissection noted. PDA, PLV are patent. 6-Irish guiding catheter taken over guidewire, 6-Irish radial sheath was discontinued. Radial dressing applied. No hematoma, no bleeding. SUMMARY: 1. Successful PCI of the mid to distal RCA with 2 drug-eluting Resolute [place] 3.5 x 15, proximal 40%. PDA and PLV are medium caliber vessel, patent. 2. Left main patent. LAD medium caliber vessel, patent, but mid to distal systolic bridging with a focal 70% lesion at the distal LAD. Circumflex medium caliber vessel, patent. OM1 and OM2 and 3 are patent. Normal LV function. Discussed this in detail with the patient and patient's daughter. Dual antiplatelet therapy, appropriate ACT, post-PCI care. JOB# [id number] TEJAL/IVAN BRUNER
[2019-03-12] MEDS ORDERED: HumaLOG SUB-Q ONE (12:48)
--- NOTE | 2019-03-12 14:05 | Progress Note ---
Assessment and Plan Assessment and plan: Ms. Ferreira is 83-year-old female with a past medical history of HTN and DM who presented to the ED with complaints of headache and chest pain x 1 day. Pt underwent lexiscan MPI stress test 08/2018 which was negative. Echo done 11/2015 showed EF 65%, mod LVH, mild MR, mild TR. --Chest pain; Status post left heart catheterization; status post PCI with distal RCA with 2 drug eluting stents, normal LV function Continue current cardiac medications, dual antiplatelets cardiology following --dyslipidemia; continue statin --Hypertension; moderate control Continue current antihypertensives and when necessary medications --Type 2 diabetes mellitus; Accu-Chek sliding scale coverage and ADA diet Insulin as needed --DVT prophylaxis; Lovenox Monitor the patient and adjust management as needed Possible discharge home tomorrow if stable History Interval history: Patient seen and evaluated, Medical records reviewed Patient underwent left heart catheterization status post PTCA this morning On dual Antiplatelet therapy Denies chest pain or shortness of breath Vital signs noted Hospitalist Physical - Constitutional Vitals: Temp Pulse Resp BP Pulse Ox 97.5 F L 94 H 16 175/85 97 03/12/19 10:45 03/12/19 13:44 03/12/19 13:44 03/12/19 13:44 03/12/19 13:44 General appearance: Present: no acute distress, well-nourished - EENT Eyes: Present: PERRL, EOM intact - Neck Neck: Present: supple, normal ROM - Respiratory Respiratory effort: normal Respiratory: bilateral: diminished, negative: rales, rhonchi, wheezing - Cardiovascular Rhythm: regular Heart Sounds: Present: S1 & S2 - Extremities Extremities: no ischemia, No edema - Abdominal General gastrointestinal: soft, non-tender, non-distended, normal bowel sounds - Integumentary Integumentary: Present: clear, warm - Psychiatric Psychiatric: appropriate mood/affect, cooperative - Neurologic Neurologic: CNII-XII intact, moves all extremities Results - Labs CBC & Chem 7: 03/12/19 04:24 03/12/19 04:24 Labs: Laboratory Last Values WBC 7.6 K/mm3 (4.5-11.0) 03/12/19 04:24 RBC 4.58 M/mm3 (3.65-5.03) 03/12/19 04:24 Hgb 13.4 gm/dl (10.1-14.3) 03/12/19 04:24 Hct 39.9 % (30.3-42.9) 03/12/19 04:24 MCV 87 fl (79-97) 03/12/19 04:24 MCH 29 pg (28-32) 03/12/19 04:24 MCHC 34 % (30-34) 03/12/19 04:24 RDW 15.3 % (13.2-15.2) H 03/12/19 04:24 Plt Count 246 K/mm3 (140-440) 03/12/19 04:24 Lymph % (Auto) 32.4 % (13.4-35.0) 03/12/19 04:24 [place] % (Auto) 10.2 % (0.0-7.3) H 03/12/19 04:24 Eos % (Auto) 1.7 % (0.0-4.3) 03/12/19 04:24 Baso % (Auto) 0.4 % (0.0-1.8) 03/12/19 04:24 Lymph # 2.5 K/mm3 (1.2-5.4) 03/12/19 04:24 [place] # 0.8 K/mm3 (0.0-0.8) 03/12/19 04:24 Eos # 0.1 K/mm3 (0.0-0.4) 03/12/19 04:24 Baso # 0.0 K/mm3 (0.0-0.1) 03/12/19 04:24 Seg Neutrophils % 55.3 % (40.0-70.0) 03/12/19 04:24 Seg Neutrophils # 4.2 K/mm3 (1.8-7.7) 03/12/19 04:24 PT 13.8 Sec. (12.2-14.9) 03/12/19 04:24 INR 1.00 (0.87-1.13) 03/12/19 04:24 Activated Clotting Time 362 (74-137) H 03/12/19 10:02 Sodium 140 mmol/L (137-145) 03/12/19 04:24 Potassium 3.6 mmol/L (3.6-5.0) 03/12/19 04:24 Chloride 98.5 mmol/L (98-107) 03/12/19 04:24 Carbon Dioxide 27 mmol/L (22-30) 03/12/19 04:24 Anion Gap 18 mmol/L 03/12/19 04:24 BUN 21 mg/dL (7-17) H 03/12/19 04:24 Creatinine 0.8 mg/dL (0.7-1.2) 03/12/19 04:24 Estimated GFR > 60 ml/min 03/12/19 04:24 BUN/Creatinine Ratio 26 % 03/12/19 04:24 Glucose 239 mg/dL (65-100) H 03/12/19 04:24 POC Glucose 305 (70-105) H 03/12/19 12:27 Hemoglobin A1c 9.3 % (4-6) H 03/11/19 07:15 Calcium 9.1 mg/dL (8.4-10.2) 03/12/19 04:24 Troponin T < 0.010 ng/mL (0.00-0.029) 03/11/19 15:09 Triglycerides 99 mg/dL (2-149) 03/12/19 04:24 Cholesterol 130 mg/dL (50-199) 03/12/19 04:24 LDL Cholesterol Direct 84 mg/dL (50-130) 03/12/19 04:24 HDL Cholesterol 37 mg/dL (40-59) L 03/12/19 04:24 Cholesterol/HDL Ratio 3.51 % 03/12/19 04:24 Active Medications - Current Medications Current Medications: Generic Name Dose Route Start Last Admin Trade Name Freq PRN Reason Stop Dose Admin Acetaminophen 650 mg 03/11/19 09:12 Tylenol PO Q4H PRN Pain MILD(1-3)/Fever >100.5/GALLARDO Aspirin 81 mg 03/13/19 10:00 Baby Aspirin PO QDAY [facility] Carvedilol 12.5 mg 03/11/19 22:00 03/11/19 21:39 Coreg PO 12.5 mg BID [facility] Administration Clopidogrel Bisulfate 75 mg 03/13/19 10:00 Plavix PO QDAY [facility] Dextrose 50 ml 03/11/19 11:49 D50w (25gm) Syringe IV PRN PRN Hypoglycemia Docusate Sodium 100 mg 03/11/19 10:00 03/11/19 21:39 Colace PO 100 mg BID [facility] Administration Enoxaparin Sodium 40 mg 03/11/19 22:00 03/11/19 21:40 Lovenox SUB-Q 40 mg QDAY@2200 [facility] Administration Sodium Chloride 1,000 mls @ 75 mls/hr 03/12/19 11:00 03/12/19 11:16 Nacl 0.45% 1000 Ml IV 03/12/19 18:59 75 mls/hr DIRECT [facility] Administration Insulin Human Lispro 0 unit 03/11/19 16:30 03/12/19 12:50 Humalog SUB-Q 6 unit ACHS [facility] Administration Protocol Isosorbide Mononitrate 30 mg 03/13/19 10:00 Imdur PO QDAY [facility] Lisinopril 10 mg 03/12/19 22:00 Zestril PO BID [facility] Morphine Sulfate 2 mg 03/11/19 09:12 03/11/19 21:39 Morphine IV 03/12/19 23:59 2 mg Q4H PRN Administration Pain, Moderate (4-6) Ondansetron HCl 4 mg 03/11/19 09:12 Zofran IV Q8H PRN Nausea And Vomiting Pravastatin Sodium 80 mg 03/11/19 22:00 03/11/19 21:39 Pravachol PO 80 mg QHS [facility] Administration Sodium Chloride 10 ml 03/11/19 09:12 Sodium Chloride Flush Syringe 10 Ml IV PRN PRN LINE FLUSH Sodium Chloride 10 ml 03/11/19 10:00 03/11/19 21:42 Sodium Chloride Flush Syringe 10 Ml IV 10 ml BID [facility] Administration Nutrition/Malnutrition Assess - Dietary Evaluation Nutrition/Malnutrition Findings: Nutrition Notes Start: 03/12/19 11:45 Freq: Status: Active Protocol: Document 03/12/19 11:45 CP (Rec: 03/12/19 11:47 CP [email or web address]) Co-Sign 03/12/19 11:45 LP Nutrition Notes Need for Assessment generated from: MD Order,Education Initial or Follow up Brief Note Subjective/Other Information MD consult for diet education. Pt was in the catheter lab at time of visit. Nutrition Intervention Follow-Up By: 03/13/19 Additional Comments F/U: Diet education
[2019-03-12] MEDS: COLACE PO SCH ×2 (17:30→21:33)
[2019-03-12] MEDS: COREG PO SCH ×2 (17:31→21:33)
[2019-03-12] MEDS: SODIUM CHLORIDE FLUSH SYRINGE 10 ML IV SCH ×2 (17:43→21:34)
[2019-03-12] MEDS: LOVENOX SUB-Q SCH (21:32)
[2019-03-12] MEDS: PRAVACHOL PO SCH (21:33)
[2019-03-12] MEDS ORDERED: RESTORIL PO SCH (22:00)
[2019-03-12] MEDS ORDERED: ZESTRIL PO SCH (22:00)
[2019-03-12 22:39] LABS: Bilirubin,Urine NEG (Negative); Blood,Urine NEG (Negative); Color,Urine Yellow (Yellow); Mucus,Urine FEW /HPF; Protein,Urine <15 mg/dL mg/dL (Negative); Urobilinogen,Urine < 2.0 mg/dL (<2.0)
[2019-03-13 04:38] VITALS: BP 121/53
[2019-03-13 08:07] LABS: Basophils % (Auto) 0.3 % (0.0-1.8); Eosinophils # (Auto) 0.1 K/mm3 (0.0-0.4); Eosinophils % (Auto) 2.1 % (0.0-4.3); Hematocrit 38.5 % (30.3-42.9); Hemoglobin 12.9 gm/dl (10.1-14.3); Lymphocytes # (Auto) 2.3 K/mm3 (1.2-5.4); Mean Corpuscular HGB Conc 34 % (30-34); Mean Corpuscular Volume 88 fl (79-97); Monocytes # (Auto) 0.7 K/mm3 (0.0-0.8); Monocytes % (Auto) 11.2 % (0.0-7.3); Platelet Count 246 K/mm3 (140-440); Red Blood Count 4.37 M/mm3 (3.65-5.03); Red Cell Distribution Width 15.4 % (13.2-15.2)
[2019-03-13 08:20] LABS: BUN/Creatinine Ratio 25; Blood Urea Nitrogen 20 mg/dL (7-17); Calcium 8.7 mg/dL (8.4-10.2); Hemolysis Index 6
--- NOTE | 2019-03-13 09:14 | Progress Note ---
Assessment and Plan pt bp is better, lhc revealed lt main patent, lad distal 70% systolic bridging prior to lesion (treat medically), lcx patent om1-3 patent, rca mid to distal 90%, pci of rca with sb resolute gavin 3.5 x 15 mm (two stents overlapping) and normal lv function rec: asa 81 mg and plavix 75 and coreg 12.5 mg bid, cont imdur 30mg and add lisinopril 10mg daily for better bp control and post pci care and discuss with pt and daughter in law, detail. 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 transplanted heart: [place] heart Associated angina: with unstable angina Qualified Code(s): I25.110 - Atherosclerotic heart disease of [place] coronary artery with unstable angina pectoris Subjective Date of service: 03/13/19 Principal diagnosis: chest pain and dhf Interval history: no chest pain or sob daughter in law at bedside Objective Vital Signs Temp Pulse Resp BP Pulse Ox 03/13/19 03:38 97.8 F 73 14 121/53 98 03/12/19 22:45 98.2 F 91 H 14 99/46 96 03/12/19 21:35 18 97 03/12/19 21:33 92 H 130/59 03/12/19 20:46 84 03/12/19 19:39 98.9 F 92 H 16 130/59 97 03/12/19 17:31 93 H 03/12/19 16:45 98.5 F 03/12/19 16:43 87 18 154/99 96 03/12/19 15:32 98.2 F 18 149/69 03/12/19 13:44 94 H 16 175/85 97 03/12/19 13:15 86 20 168/79 95 03/12/19 12:43 82 15 152/72 95 03/12/19 12:15 73 16 130/64 92 03/12/19 11:45 69 15 133/63 92 03/12/19 11:32 70 14 134/62 93 03/12/19 11:15 77 14 148/66 92 03/12/19 11:00 80 18 154/61 93 03/12/19 10:45 97.5 F L 78 18 136/68 93 - Physical Examination HEENT: Positive: PERRL, Normocephaly, Mucus Membranes Moist Neck: Positive: neck supple, trachea midline Cardiac: Positive: Reg Rate and Rhythm Lungs: Positive: clear to auscultation Neuro: Positive: Grossly Intact Abdomen: Positive: Soft. Negative: Tender Skin: Negative: Rash Musculoskeletal: No Pain Extremities: Absent: edema - Labs and Meds CBC 03/13/19 Range/Units 07:40 WBC 6.0 (4.5-11.0) K/mm3 RBC 4.37 (3.65-5.03) M/mm3 Hgb 12.9 (10.1-14.3) gm/dl Hct 38.5 (30.3-42.9) % Plt Count 246 (140-440) K/mm3 Lymph # 2.3 (1.2-5.4) K/mm3 Pepin # 0.7 (0.0-0.8) K/mm3 Eos # 0.1 (0.0-0.4) K/mm3 Baso # 0.0 (0.0-0.1) K/mm3 Comprehensive Metabolic Panel 03/13/19 Range/Units 07:40 Sodium 139 (137-145) mmol/L Potassium 3.5 L (3.6-5.0) mmol/L Chloride 101.0 (98-107) mmol/L Carbon Dioxide 29 (22-30) mmol/L BUN 20 H (7-17) mg/dL Creatinine 0.8 (0.7-1.2) mg/dL Glucose 222 H (65-100) mg/dL Calcium 8.7 (8.4-10.2) mg/dL - Imaging and Cardiology EKG: report reviewed, image reviewed Echo: report reviewed (11/2015 showed EF 65%, mod LVH, mild MR, mild TR. ) Cardiac cath: report reviewed (lt main patent, lad distal 70% systolic bridging, lcx patent om1-3 patent, rca mid to distal 90%, pci of rca with two sb resolute onxy 3.5 x 15 mm overlapping and normal lv function ) - Telemetry EKG Rhythm: Sinus Rhythm - EKG Sinus rhythms and dysrhythmias: sinus rhythm Chamber hypertrophy or enlargement: left ventricular hypertro
--- NOTE | 2019-03-13 09:21 | Discharge Summary ---
Providers - Providers Date of Admission: 03/12/19 12:18 Date of discharge: 03/13/19 Attending physician: SAMANTHA VIERA 03/11/19 09:15 Consult to Physician [CONS] Routine Comment: ISAAC MORIN OF CONSULT [id number] Consulting Provider: GIULIANO CERAVNTES Physician Instructions: Reason For Exam: Acute Chest Pain 03/11/19 11:49 Consult to Dietitian/Nutrition [CONS] Routine Physician Instructions: Reason For Exam: Reason for Consult: Diet education 03/12/19 Consult to Cardiac Rehabilitation [CONS] Routine Reason For Exam: post pci Primary care physician: CHI LEVY Hospitalization Reason for admission: chest pain Condition: Stable Pertinent studies: Echocardiogram; history of 55-60%, no ASD Chest x-ray; borderline heart size Cardiac catheterization Procedures: left heart catheterization; status post PCI with distal RCA with 2 drug eluting stents, normal LV function Hospital course: Ms. Ferreira is 83-year-old female with a past medical history of HTN and DM who presented to the ED with complaints of headache and chest pain x 1 day. Pt underwent lexiscan MPI stress test 08/2018 which was negative. Echo done 11/2015 showed EF 65%, mod LVH, mild MR, mild TR. Patient was evaluated by cardiology, underwent left heart catheterization status post PCI of distal RCA with 2 ELIZABETH placement Normal LV function, patient's medications were optimized The patient is comfortable no new complaints, vital signs stable Physical examination is unremarkable, cleared by cardiology for discharge and follow-up in the office Discharge diagnosis and management; --Chest pain; Status post left heart catheterization; status post PCI with distal RCA with 2 drug eluting stents, normal LV function Continue current cardiac medications, dual antiplatelets therapy --dyslipidemia; continue statin --Hypertension; moderate control Continue current antihypertensives and when necessary medications --Type 2 diabetes mellitus; Accu-Chek sliding scale coverage and ADA diet Insulin as needed --DVT prophylaxis; Lovenox Monitor the patient and adjust management as needed Possible discharge home tomorrow if stable Disposition: DC-01 TO HOME OR SELFCARE Time spent for discharge: 32 min Core Measure Documentation - Palliative Care Palliative Care/ Comfort Measures: Not Applicable - Core Measures Any of the following diagnoses?: none Exam - Constitutional Vitals: Temp Pulse Resp BP Pulse Ox 97.8 F 73 14 121/53 98 03/13/19 03:38 03/13/19 03:38 03/13/19 03:38 03/13/19 03:38 03/13/19 03:38 General appearance: Present: no acute distress, well-nourished - EENT Eyes: Present: PERRL, EOM intact - Neck Neck: Present: supple, normal ROM - Respiratory Respiratory effort: normal Respiratory: bilateral: diminished, negative: rales, rhonchi, wheezing - Cardiovascular Rhythm: regular Heart Sounds: Present: S1 & S2 - Extremities Extremities: no ischemia, pulses intact - Abdominal General gastrointestinal: Present: soft, non-tender, non-distended, normal bowel sounds - Integumentary Integumentary: Present: clear, warm - Musculoskeletal Musculoskeletal: strength equal bilaterally - Psychiatric Psychiatric: appropriate mood/affect, cooperative - Neurologic Neurologic: CNII-XII intact, moves all extremities Plan Activity: advance as tolerated Diet: other (Cardiac diet) Follow up with: CHI LEVY MD [Primary Care Provider] - 7 Days HALEIGH CLARK MD [Staff Physician] - 7 Days (Follow up in our [facility] with Dr. Clark on 03/25/2019 @ 9:45AM) Prescriptions: Aspirin [Adult Low Dose Aspirin EC] 81 mg PO DAILY #30 tablet. ISOSORBIDE MONOnitrate [Imdur ER] 30 mg PO QDAY #30 tablet Clopidogrel [Plavix] 75 mg PO QDAY #30 tablet Lisinopril [Zestril TAB] 10 mg PO QDAY #30 tablet
[2019-03-13 09:28] LABS: Creatine Kinase MB 2.6 ng/mL (0.0-4.0)
[2019-03-13] MEDS: COLACE PO SCH (09:35)
[2019-03-13] MEDS: COREG PO SCH (09:35)
[2019-03-13] MEDS: HumaLOG SUB-Q SCH ×2 (09:36→13:51)
[2019-03-13] MEDS: SODIUM CHLORIDE FLUSH SYRINGE 10 ML IV SCH (09:36)
[2019-03-13] MEDS ORDERED: IMDUR PO SCH (10:00)
[2019-03-13] MEDS ORDERED: BABY ASPIRIN PO SCH (10:00)
[2019-03-13] MEDS ORDERED: PLAVIX PO SCH (10:00)
[2019-03-13] MEDS ORDERED: ZESTRIL PO SCH (11:00)
--- NOTE | 2019-03-13 13:55 | Progress Note ---
Assessment and Plan Pt presented with c/o recurrent chest pain. Pt underwent lexiscan MPI stress test 08/2018 which was negative. Echo done 11/2015 showed EF 65%, mod LVH, mild MR, mild TR. ECG with no acute ischemic changes, [place] negative for AMI. Coronary angiography recommended for definitive diagnosis. Indications, potential risks and benefits of LHC reviewed with pt and with pt's daughter via telephone and they are agreeable to proceed. NPO after MN. F/u echo. Optimize anti-hypertensive and anti-ischemic regimen. The patient has been seen in conjunction with Dr. Clark who agrees with the assessment and plan of care. 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 in SR on tele. Objective Last Vital Signs Temp 97.5 F L 03/13/19 10:32 Pulse 73 03/13/19 09:35 Resp 18 03/13/19 09:21 BP 121/53 03/13/19 09:35 Pulse Ox 96 03/13/19 09:21 - Physical Examination General: No Apparent Distress HEENT: Positive: PERRL, Normocephaly, Mucus Membranes Moist Neck: Positive: neck supple, trachea midline Cardiac: Positive: Reg Rate and Rhythm, S1/S2 Lungs: Positive: Decreased Breath Sounds Neuro: Positive: Grossly Intact Abdomen: Positive: Soft. Negative: Tender Skin: Negative: Rash Musculoskeletal: No Pain Extremities: Absent: edema - Labs and Meds Cardiac Enzymes 03/13/19 Range/Units 07:40 CK-MB (CK-2) 2.6 (0.0-4.0) ng/mL CBC 03/13/19 Range/Units 07:40 WBC 6.0 (4.5-11.0) K/mm3 RBC 4.37 (3.65-5.03) M/mm3 Hgb 12.9 (10.1-14.3) gm/dl Hct 38.5 (30.3-42.9) % Plt Count 246 (140-440) K/mm3 Lymph # 2.3 (1.2-5.4) K/mm3 [place] # 0.7 (0.0-0.8) K/mm3 Eos # 0.1 (0.0-0.4) K/mm3 Baso # 0.0 (0.0-0.1) K/mm3 Comprehensive Metabolic Panel 03/13/19 Range/Units 07:40 Sodium 139 (137-145) mmol/L Potassium 3.5 L (3.6-5.0) mmol/L Chloride 101.0 (98-107) mmol/L Carbon Dioxide 29 (22-30) mmol/L BUN 20 H (7-17) mg/dL Creatinine 0.8 (0.7-1.2) mg/dL Glucose 222 H (65-100) mg/dL Calcium 8.7 (8.4-10.2) mg/dL - Imaging and Cardiology EKG: report reviewed, image reviewed Echo: report reviewed (11/2015 showed EF 65%, mod LVH, mild MR, mild TR. ) Cardiac cath: report reviewed (lt main patent, lad distal 70% systolic bridging, lcx patent om1-3 patent, rca mid to distal 90%, pci of rca with two sb resolute onxy 3.5 x 15 mm overlapping and normal lv function ) - EKG Sinus rhythms and dysrhythmias: sinus rhythm Chamber hypertrophy or enlargement: left ventricular hypertro
== END 2019-03-13 16:47 | disposition home or self-care (01) | DRG 246 ==
LOC: ED 07:01 → 4A 09:12 → OBSVTOIN 03-12 12:18
PROVIDERS: ADMIT Internal Medicine; ATTEND Internal Medicine
PROC: 027035Z Dilation of Coronary Artery, One Artery with Two Drug-eluting Intraluminal Devices, Percutaneous Approach (ICD-10-PCS; principal; 2019-03-12)
PROC: B240ZZ3 Ultrasonography of Single Coronary Artery, Intravascular (ICD-10-PCS; 2019-03-12)
PROC: 4A023N7 Measurement of Cardiac Sampling and Pressure, Left Heart, Percutaneous Approach (ICD-10-PCS; 2019-03-12)
PROC: B2111ZZ Fluoroscopy of Multiple Coronary Arteries using Low Osmolar Contrast (ICD-10-PCS; 2019-03-12)
PROC: B2151ZZ Fluoroscopy of Left Heart using Low Osmolar Contrast (ICD-10-PCS; 2019-03-12)
DX: I25.110 Atherosclerotic heart disease of native coronary artery with unstable angina pectoris (principal); I50.31 Acute diastolic (congestive) heart failure; E11.65 Type 2 diabetes mellitus with hyperglycemia; I16.0 Hypertensive urgency; I08.1 Rheumatic disorders of both mitral and tricuspid valves; I11.0 Hypertensive heart disease with heart failure; E78.00 Pure hypercholesterolemia, unspecified; E78.5 Hyperlipidemia, unspecified; E89.0 Postprocedural hypothyroidism; Z88.5 Allergy status to narcotic agent; Z79.82 Long term (current) use of aspirin; Z79.899 Other long term (current) drug therapy; Z79.84 Long term (current) use of oral hypoglycemic drugs
CPT/HCPCS: 36415; 71045; 80048; 80061; 81001; 82550; 82553; 82962; 83036; 84484; 85025; 85347; 85610; 92928; 92978; 93005; 93010; 93306; 93458; 96372; G0378; A9270-GY; C1725; C1753; C1769; C1874; C1887; C1894; C9600; J0360; J1644; J1650; J1815; J1940; J2250; J2270; J3010; J7030; J7040; Q9967

== ENCOUNTER 2019-03-14 17:15 | Inpatient (IN) | payer MEDICARE, MEDICAID ==
--- NOTE | 2019-03-14 17:41 | Emergency Department Report ---
Blank Doc - Documentation Documentation: This is a 83-year-old female that presents with chest pain and SOB. This initial assessment/diagnostic orders/clinical plan/treatment(s) is/are subject to change based on patient's health status, clinical progression and re- assessment by fellow clinical providers in the ED. Further treatment and workup at subsequent clinical providers discretion. Patient/guardians urged not to elope from the ED as their condition may be serious if not clinically assessed and managed. Initial orders include: 1- Patient sent to MAIN ED for further evaluation and treatment 2- labs 3- EKG 4- CXR
[2019-03-14 18:35] LABS: Basophils % (Auto) 0.4 % (0.0-1.8); Eosinophils # (Auto) 0.2 K/mm3 (0.0-0.4); Eosinophils % (Auto) 2.6 % (0.0-4.3); Hematocrit 38.1 % (30.3-42.9); Hemoglobin 12.8 gm/dl (10.1-14.3); Lymphocytes # (Auto) 2.1 K/mm3 (1.2-5.4); Lymphocytes % (Auto) 34.8 % (13.4-35.0); Mean Corpuscular HGB Conc 34 % (30-34); Mean Corpuscular Volume 89 fl (79-97); Monocytes # (Auto) 0.8 K/mm3 (0.0-0.8); Monocytes % (Auto) 13.3 % (0.0-7.3); Platelet Count 236 K/mm3 (140-440); Red Cell Distribution Width 15.4 % (13.2-15.2)
--- NOTE | 2019-03-14 18:44 | XRay Report ---
PROCEDURE: XR CHEST 1V AP TECHNIQUE: Frontal portable view of the chest HISTORY: Chest Pain COMPARISONS: Chest x-ray dated March 11, 2019. The report of that study is not available for review a t the time of this dictation. FINDINGS: There is bilateral hypoinflation. There appears to be patchy areas of pulmonary consolidation in both lung bases similar in appearance to the previous study. Atelectasis versus infiltrates. The cardiac silhouette is enlarged not significantly changed in the interval. The thoracic aorta is tortuous with atherosclerotic vascular calcification. There is marked degenerative change of the glenohumeral joints bilaterally. Visualization of detail of the thoracic spine is limited. IMPRESSION: 1. Hypoinflation with atelectasis versus infiltrates both lung bases similar in appearance to the pre vious chest x-ray dated March 11, 2019. 2. Stable enlarged cardiac silhouette. 3. Marked degenerative change shoulder joints bilaterally. This document is electronically signed by Rayne Rendon MD., March 14 2019 06:42:56 PM ET
[2019-03-14 19:10] LABS: INR 0.99 (0.87-1.13)
[2019-03-14 19:11] LABS: Partial Thromboplastin Time 30.1 Sec. (24.2-36.6)
[2019-03-14 19:14] LABS: BUN/Creatinine Ratio 20; Blood Urea Nitrogen 18 mg/dL (7-17); Calcium 8.9 mg/dL (8.4-10.2); Hemolysis Index 11
[2019-03-14] MEDS ORDERED: ANTIVERT PO ONE (19:56)
--- NOTE | 2019-03-14 20:22 | Emergency Department Report ---
ED Chest Pain HPI - General Chief Complaint: Chest Pain Stated Complaint: DIZZY/WEAK/CHEST PAIN Time Seen by Provider: 03/14/19 17:40 Source: patient, family Mode of arrival: Ambulatory Limitations: No Limitations - History of Present Illness Initial Comments: 83-year-old female recently discharged on yesterday following admission for chest pain in which she underwent cardiac catheterization by Dr Clark and an RCA stent placement. Patient returns today with what she reports is the same intermittent chest pain and headache that made her come in to the hospital 3 days ago. Patient states pain is intermittent, tightness, nonradiating. Also reported dizziness, however has a history of vertigo for which she takes meclizine and is currently requesting it. Patient denies nausea, vomiting, shortness of breath, diaphoresis. Denies chest pain at this time. MD Complaint: chest pain -: This morning Onset: during rest Pain Location: substernal Pain Radiation: none Severity: moderate Severity scale (0 -10): 0 Quality: tightness Consistency: intermittent Improves With: nothing Worsens With: nothing re: denies: nausea, vomting, diaphoresis, dyspnea - Related Data Home Medications Medication Instructions Recorded Confirmed Last Taken Famotidine [Pepcid] 20 mg PO BID 11/19/15 03/14/19 09/15/18 09:00 Simvastatin [Zocor TAB] 40 mg PO QHS 11/19/15 03/14/19 09/15/18 21:00 Valsartan/Hydrochlorothiazide 1 tab PO QDAY 11/19/15 03/14/19 09/15/18 09:00 [Diovan Hct 160-25 mg] metFORMIN [Glucophage] 500 mg PO BID 11/19/15 03/14/19 09/15/18 09:00 500mg Calcium Citrate/Vitamin D3 2 each PO BID 03/12/19 03/14/19 Unknown [Citracal-Vit D3 200 mg-250 Tab] Levothyroxine [Synthroid] 50 mcg PO QAM 03/12/19 03/14/19 Unknown Multivit-Min/Iron/Folic/Lutein 1 each PO DAILY 03/12/19 03/14/19 Unknown [Multivitamin Women 50 Plus Tab] Temazepam 30 mg PO QHS 03/12/19 03/14/19 Unknown glipiZIDE [Glucotrol] 10 mg PO BID 03/12/19 03/14/19 Unknown Previous Rx's Medication Instructions Recorded Last Taken Type Carvedilol [Coreg] 12.5 mg PO BID #60 tablet 09/16/18 Unknown Rx Aspirin [Adult Low Dose Aspirin EC] 81 mg PO DAILY #30 tablet. 03/13/19 Un known Rx Clopidogrel [Plavix] 75 mg PO QDAY #30 tablet 03/13/19 Unknown Rx ISOSORBIDE MONOnitrate [Imdur ER] 30 mg PO QDAY #30 tablet 03/13/19 Unknown Rx Lisinopril [Zestril TAB] 10 mg PO QDAY #30 tablet 03/13/19 Unknown Rx Allergies Allergy/AdvReac Type Severity Reaction Status Date / Time codeine AdvReac Dizziness Verified 09/07/18 08:51 Heart Score - HEART Score History: Slightly suspicious EKG: Normal Age: > 65 Risk factors: > 3 risk factors or hx of atherosclerotic disease Troponin: < normal limit HEART Score: 4 ED Review of Systems ROS: Stated complaint: DIZZY/WEAK/CHEST PAIN Other details as noted in HPI Comment: All other systems reviewed and negative Constitutional: denies: chills, fever Respiratory: denies: cough, shortness of breath Cardiovascular: chest pain Gastrointestinal: denies: nausea, vomiting Neurological: headache, vertigo ED Past Medical Hx - Past Medical History Previous Medical History?: Yes Hx Hypertension: Yes Hx CVA: No Hx Heart Attack/AMI: No Hx Congestive Heart Failure: No Hx Diabetes: Yes Hx Deep Vein Thrombosis: No Hx Pulmonary Embolism: No Hx GERD: No Hx Liver Disease: No Hx Renal Disease: No Hx Sickle Cell Disease: No Hx Arthritis: Yes Hx Headaches / Migraines: No Hx Seizures: No Hx Kidney Stones: No Hx Psychiatric Treatment: No Hx Asthma: No Hx COPD: No Hx Dementia: No Hx HIV: No Additional medical history: cholesterol, Thyroid problems - Surgical History Past Surgical History?: Yes Hx Coronary Stent: No Hx Open Heart Surgery: No Hx Pacemaker: No Hx Internal Defibrillator: No Hx Cholecystectomy: No Hx Appendectomy: No Hx Breast Surgery: No Additional Surgical History: r. knee, and thyroid - Social History Smoking Status: Never Smoker - Medications Home Medications: Home Medications Medication Instructions Recorded Confirmed Last Taken Type Famotidine [Pepcid] 20 mg PO BID 11/19/15 03/14/19 09/15/18 09:00 History Simvastatin [Zocor TAB] 40 mg PO QHS 11/19/15 03/14/19 09/15/18 21:00 History Valsartan/Hydrochlorothiazide 1 tab PO QDAY 11/19/15 03/14/19 09/15/18 09:00 History [Diovan Hct 160-25 mg] metFORMIN [Glucophage] 500 mg PO BID 11/19/15 03/14/19 09/15/18 09:00 History 500mg Carvedilol [Coreg] 12.5 mg PO BID #60 tablet 09/16/18 03/14/19 Unknown Rx Calcium Citrate/Vitamin D3 2 each PO BID 03/12/19 03/14/19 Unknown History [Citracal-Vit D3 200 mg-250 Tab] Levothyroxine [Synthroid] 50 mcg PO QAM 03/12/19 03/14/19 Unknown History Multivit-Min/Iron/Folic/Lutein 1 each PO DAILY 03/12/19 03/14/19 Unknown History [Multivitamin Women 50 Plus Tab] Temazepam 30 mg PO QHS 03/12/19 03/14/19 Unknown History glipiZIDE [Glucotrol] 10 mg PO BID 03/12/19 03/14/19 Unknown History Aspirin [Adult Low Dose Aspirin EC] 81 mg PO DAILY #30 tablet. 03/13/19 03/14/19 Unknown Rx Clopidogrel [Plavix] 75 mg PO QDAY #30 tablet 03/13/19 03/14/19 Unknown Rx ISOSORBIDE MONOnitrate [Imdur ER] 30 mg PO QDAY #30 tablet 03/13/19 03/14/19 Unknown Rx Lisinopril [Zestril TAB] 10 mg PO QDAY #30 tablet 03/13/19 03/14/19 Unknown Rx ED Physical Exam - General Limitations: No Limitations General appearance: alert, in no apparent distress - Head Head exam: Present: atraumatic, normocephalic - Eye Eye exam: Present: normal appearance - ENT ENT exam: Present: mucous membranes moist - Neck Neck exam: Present: normal inspection - Respiratory Respiratory exam: Present: normal lung sounds bilaterally. Absent: respiratory distress - Cardiovascular Cardiovascular Exam: Present: regular rate, normal rhythm - GI/Abdominal GI/Abdominal exam: Present: soft. Absent: distended, tenderness - Extremities Exam Extremities exam: Present: normal inspection - Neurological Exam Neurological exam: Present: alert, oriented X3, CN II-XII intact. Absent: motor sensory deficit - Psychiatric Psychiatric exam: Present: normal affect, normal mood - Skin Skin exam: Present: warm, dry, intact, normal color ED Course Vital Signs 03/14/19 03/14/19 03/14/19 17:38 18:05 18:15 Temperature 98.3 F Pulse Rate 91 H 91 H 88 Respiratory 20 15 11 L Rate Blood Pressure 168/73 134/60 129/65 Blood Pressure [Left] O2 Sat by Pulse 95 96 95 Oximetry 03/14/19 03/14/19 03/14/19 18:30 18:45 19:00 Temperature Pulse Rate 91 H 88 90 Respiratory 17 16 16 Rate Blood Pressure 123/68 123/68 130/61 Blood Pressure [Left] O2 Sat by Pulse 97 95 95 Oximetry 03/14/19 03/14/19 19:15 20:30 Temperature 97.6 F Pulse Rate 87 82 Respiratory 18 17 Rate Blood Pressure 125/71 Blood Pressure 130/61 [Left] O2 Sat by Pulse 93 97 Oximetry - Consultations Consultation #1: 03/14/19 19:26 Spoke w/ Dr Cerda. States admit for observation. Will see in the AM. BRYAN score - Bryan Score Age > 65: (1) Yes Aspirin use within the Past 7 Days: (1) Yes 3 or more CAD Risk Factors: (1) Yes 2 or more Angina events in past 24 hrs: (0) No Known CAD with more than 50% Stenosis: (0) No Elevated Cardiac Markers: (0) No ST Deviation Greater than 0.5mm: (0) No BRYAN Score: 3 ED Medical Decision Making - Lab Data Result diagrams: 03/14/19 18:15 03/14/19 18:15 - EKG Data -: EKG Interpreted by Me EKG shows normal: sinus rhythm, axis, intervals, QRS complexes, ST-T waves Rate: normal - EKG Data Interpretation: no acute changes - Radiology Data Radiology results: report reviewed, image reviewed - Medical Decision Making 83-year-old female with recently placed RCA stent 2 days ago, presents to ED with chest pain. Patient says the pain is the same as it was when she was admitted a few days ago. Today's EKG is unremarkable, troponin normal. Vital signs stable. Spoke with artillery officer, wants patient re-admitted for observation. Dr Richards, hospitalist, to admit. - Differential Diagnosis ACS, atypical chest pain, pneumonia, pulm edema Critical care attestation.: If time is entered above; I have spent that time in minutes in the direct care of this critically ill patient, excluding procedure time. ED Disposition Clinical Impression: Chest pain Disposition: DC-09 OP ADMIT IP TO THIS HOSP Is pt being admited?: Yes Condition: Stable Instructions: Chest Pain (ED) Referrals: PRIMARY CARE, [Primary Care Provider] - 3-5 Days Time of Disposition: 20:24
--- NOTE | 2019-03-14 21:56 | History and Physical Report ---
History of Present Illness Date of examination: 03/14/19 Date of admission: 03/14/19 20:24 Chief complaint: Chest pain since AM History of present illness: 83-year-old female discharged on yesterday following admission for chest pain in which she underwent cardiac catheterization by Dr Clark and an RCA stent placement. Patient returns today with what she reports is the same intermittent chest pain and headache that made her come in to the hospital 3 days ago. Patient states pain is intermittent, tightness, nonradiating. Also reported dizziness, however has a history of vertigo for which she takes meclizine and is currently requesting it. Patient denies nausea, vomiting, shortness of breath, diaphoresis. Denies chest pain at this time. No exacerbating or relieving factors.No recent travel. Past Medical History Previous Medical History?: Yes Hypertension Arthritis CAD T2SM GERD Hypothyroidism Hyperlipidemia Surgical History Past Surgical History?: Yes Hx Coronary Stent: yes Additional Surgical History: r. knee, and thyroid Social History Smoking Status: Never Smoker Review of Systems ROS: Stated complaint: DIZZY/WEAK/CHEST PAIN Other details as noted in HPI Comment: All other systems reviewed and negative Constitutional: denies: chills, fever Respiratory: denies: cough, shortness of breath Cardiovascular: chest pain Gastrointestinal: denies: nausea, vomiting Neurological: headache, vertigo Medications and Allergies Allergies Allergy/AdvReac Type Severity Reaction Status Date / Time codeine AdvReac Dizziness Verified 09/07/18 08:51 Home Medications Medication Instructions Recorded Confirmed Last Taken Type Famotidine [Pepcid] 20 mg PO BID 11/19/15 03/14/19 09/15/18 09:00 History Simvastatin [Zocor TAB] 40 mg PO QHS 11/19/15 03/14/19 09/15/18 21:00 History Valsartan/Hydrochlorothiazide 1 tab PO QDAY 11/19/15 03/14/19 09/15/18 09:00 History [Diovan Hct 160-25 mg] Carvedilol [Coreg] 12.5 mg PO BID #60 tablet 09/16/18 03/14/19 Unknown Rx Calcium Citrate/Vitamin D3 2 each PO BID 03/12/19 03/14/19 Unknown History [Citracal-Vit D3 200 mg-250 Tab] Levothyroxine [Synthroid] 50 mcg PO QAM 03/12/19 03/14/19 Unknown History Multivit-Min/Iron/Folic/Lutein 1 each PO DAILY 03/12/19 03/14/19 Unknown History [Multivitamin Women 50 Plus Tab] Temazepam 30 mg PO QHS 03/12/19 03/14/19 Unknown History glipiZIDE [Glucotrol] 10 mg PO BID 03/12/19 03/14/19 Unknown History Aspirin [Adult Low Dose Aspirin EC] 81 mg PO DAILY #30 tablet. 03/13/19 03/14/19 Unknown Rx Clopidogrel [Plavix] 75 mg PO QDAY #30 tablet 03/13/19 03/14/19 Unknown Rx ISOSORBIDE MONOnitrate [Imdur ER] 30 mg PO QDAY #30 tablet 03/13/19 03/14/19 Unknown Rx Lisinopril [Zestril TAB] 10 mg PO QDAY #30 tablet 03/13/19 03/14/19 Unknown Rx metFORMIN XR [Glucophage XR] 500 mg PO BID 03/14/19 03/14/19 03/14/19 History hydrALAZINE [Apresoline TAB] 100 mg PO BID 03/15/19 03/15/19 03/14/19 History Exam - Constitutional Vitals: Temp Pulse Resp BP Pulse Ox 97.6 F 93 H 10 L 125/71 96 03/14/19 19:15 03/14/19 21:01 03/14/19 21:01 03/14/19 21:01 03/14/19 21:01 General appearance: Present: no acute distress, well-nourished - EENT Eyes: Present: PERRL ENT: hearing intact, clear oral mucosa - Neck Neck: Present: supple, normal ROM - Respiratory Respiratory effort: normal Respiratory: bilateral: CTA - Cardiovascular Heart rate: 87 Rhythm: regular Heart Sounds: Present: S1 & S2. Absent: rub, click - Extremities Extremities: no ischemia, pulses intact, pulses symmetrical, No edema Peripheral Pulses: within normal limits - Abdominal General gastrointestinal: Present: soft, non-tender, non-distended, normal bowel sounds Female genitourinary: Present: normal - Rectal Rectal Exam: deferred - Integumentary Integumentary: Present: clear, warm, dry - Musculoskeletal Musculoskeletal: gait normal, strength equal bilaterally - Psychiatric Psychiatric: appropriate mood/affect, intact judgment & insight - Neurologic Neurologic: CNII-XII intact, moves all extremities - Allied Health Allied health notes reviewed: nursing, case management Results - Labs CBC & Chem 7: 03/14/19 18:15 03/14/19 18:15 Labs: Laboratory Last Values WBC 6.0 K/mm3 (4.5-11.0) 03/14/19 18:15 RBC 4.30 M/mm3 (3.65-5.03) 03/14/19 18:15 Hgb 12.8 gm/dl (10.1-14.3) 03/14/19 18:15 Hct 38.1 % (30.3-42.9) 03/14/19 18:15 MCV 89 fl (79-97) 03/14/19 18:15 MCH 30 pg (28-32) 03/14/19 18:15 MCHC 34 % (30-34) 03/14/19 18:15 RDW 15.4 % (13.2-15.2) H 03/14/19 18:15 Plt Count 236 K/mm3 (140-440) 03/14/19 18:15 Lymph % (Auto) 34.8 % (13.4-35.0) 03/14/19 18:15 [place] % (Auto) 13.3 % (0.0-7.3) H 03/14/19 18:15 Eos % (Auto) 2.6 % (0.0-4.3) 03/14/19 18:15 Baso % (Auto) 0.4 % (0.0-1.8) 03/14/19 18:15 Lymph # 2.1 K/mm3 (1.2-5.4) 03/14/19 18:15 [place] # 0.8 K/mm3 (0.0-0.8) 03/14/19 18:15 Eos # 0.2 K/mm3 (0.0-0.4) 03/14/19 18:15 Baso # 0.0 K/mm3 (0.0-0.1) 03/14/19 18:15 Seg Neutrophils % 48.9 % (40.0-70.0) 03/14/19 18:15 Seg Neutrophils # 3.0 K/mm3 (1.8-7.7) 03/14/19 18:15 PT 13.7 Sec. (12.2-14.9) 03/14/19 18:15 INR 0.99 (0.87-1.13) 03/14/19 18:15 APTT 30.1 Sec. (24.2-36.6) 03/14/19 18:15 D-Dimer 443.59 ng/mlDDU (0-234) H 03/14/19 18:15 Sodium 140 mmol/L (137-145) 03/14/19 18:15 Potassium 5.0 mmol/L (3.6-5.0) D 03/14/19 18:15 Chloride 119.4 mmol/L (98-107) H 03/14/19 18:15 Carbon Dioxide 25 mmol/L (22-30) 03/14/19 18:15 Anion Gap 1 mmol/L 03/14/19 18:15 BUN 18 mg/dL (7-17) H 03/14/19 18:15 Creatinine 0.9 mg/dL (0.7-1.2) 03/14/19 18:15 Estimated GFR > 60 ml/min 03/14/19 18:15 BUN/Creatinine Ratio 20 % 03/14/19 18:15 Glucose 371 mg/dL (65-100) H 03/14/19 18:15 POC Glucose 299 (70-105) H 03/14/19 21:49 Calcium 8.9 mg/dL (8.4-10.2) 03/14/19 18:15 Troponin T < 0.010 ng/mL (0.00-0.029) 03/14/19 18:15 Blood Type A POSITIVE 03/14/19 18:15 Antibody Screen Negative 03/14/19 18:15 Short CBC 03/14/19 Range/Units 18:15 WBC 6.0 (4.5-11.0) K/mm3 Hgb 12.8 (10.1-14.3) gm/dl Hct 38.1 (30.3-42.9) % Plt Count 236 (140-440) K/mm3 BMP 03/14/19 18:15 Sodium 140 Potassium 5.0 D Chloride 119.4 H Carbon Dioxide 25 BUN 18 H Creatinine 0.9 Glucose 371 H Calcium 8.9 Cardiac Enzymes 03/14/19 Range/Units 18:15 Troponin T < 0.010 (0.00-0.029) ng/mL - Imaging and Cardiology EKG: report reviewed (NSR 87/min LVH ) Imaging and Cardiology: CXR IMPRESSION: 1. Hypoinflation with atelectasis versus infiltrates both lung bases similar in appearance to the previous chest x-ray dated March 11, 2019. 2. Stable enlarged cardiac silhouette. 3. Marked degenerative change shoulder joints bilaterally. Assessment and Plan Advance Directives: Yes (Full code) VTE prophylaxis?: Chemical Plan of care discussed with patient/family: Yes - Patient Problems (1) Recurrent chest pain Current Visit: No Status: Acute Plan to address problem: Patient had a RCA stent yesterday Will reconsult cardiology Serial Troponins for now Lexiscan not ordered (2) CAD (coronary artery disease) Current Visit: No Status: Acute Qualifiers: Coronary Disease-Associated Artery/Lesion type: [place] artery [place] vs. transplanted heart: [place] heart Associated angina: with unstable angina Qualified Code(s): I25.110 - Atherosclerotic heart disease of [place] coronary artery with unstable angina pectoris (3) Diabetes mellitus, type 2 Current Visit: No Status: Chronic Qualifiers: Diabetes mellitus half-way insulin use: without half-way use Diabetes mellitus complication status: without complication Qualified Code(s): E11.9 - Type 2 diabetes mellitus without complications Plan to address problem: COnt Hypoglycemics and coverage (4) HTN (hypertension) Current Visit: Yes Status: Chronic Qualifiers: Hypertension type: essential hypertension Qualified Code(s): I10 - E ssential (primary) hypertension Plan to address problem: COnt antihypertensives (5) Dyslipidemia Current Visit: No Status: Chronic Plan to address problem: Cont statins (6) GERD (gastroesophageal reflux disease) Current Visit: Yes Status: Chronic Qualifiers: Esophagitis presence: without esophagitis Qualified Code(s): K21.9 - Gastro-esophageal reflux disease without esophagitis Plan to address problem: Cont PPIs (7) Hypothyroidism Current Visit: No Status: Chronic Qualifiers: Hypothyroidism type: postoperative Qualified Code(s): E89.0 - Postprocedural hypothyroidism Plan to address problem: Cont Synthyroid (8) DVT prophylaxis Current Visit: No Status: Acute Plan to address problem: On Lovenox and GI prophylaxis
[2019-03-14] MEDS: PLAVIX PO SCH (22:30)
[2019-03-14] MEDS: COREG PO SCH (22:39)
[2019-03-14] MEDS: HumaLOG SUB-Q SCH (22:40)
[2019-03-14] MEDS: PEPCID PO SCH (22:40)
[2019-03-14] MEDS: RESTORIL PO SCH (22:40)
[2019-03-14] MEDS: CITRACAL D 315MG-250 UNITS PO SCH (23:17)
[2019-03-15] MEDS: SYNTHROID PO SCH (05:40)
[2019-03-15] MEDS: HumaLOG SUB-Q SCH ×4 (08:21→21:40)
[2019-03-15] MEDS: PLAVIX PO SCH (09:25)
[2019-03-15] MEDS: COREG PO SCH ×2 (09:25→21:37)
[2019-03-15] MEDS: HALFPRIN EC PO SCH (09:25)
[2019-03-15] MEDS: PEPCID PO SCH ×2 (09:25→21:37)
[2019-03-15] MEDS: CITRACAL D 315MG-250 UNITS PO SCH ×2 (09:25→21:38)
[2019-03-15] MEDS: GLUCOPHAGE XR PO SCH ×2 (09:26→18:12)
[2019-03-15] MEDS: GLUCOTROL PO SCH ×2 (09:26→18:12)
[2019-03-15] MEDS ORDERED: ZESTRIL PO SCH (10:00)
[2019-03-15] MEDS: LANTUS SUB-Q SCH (10:35)
[2019-03-15] MEDS: HCTZ PO SCH (10:52)
[2019-03-15] MEDS: DIOVAN PO SCH (10:52)
[2019-03-15] MEDS: IMDUR PO SCH (10:52)
--- NOTE | 2019-03-15 11:49 | Consultation ---
History of Present Illness Consult date: 03/15/19 Requesting physician: CORINA HIGH Consult reason: chest pain History of present illness: The pt is an 83 YO female with a past medical history of CAD s/p recent PCI of RCA on 03/12, HTN, HLP, DM, hypothyroidism. She [facility] - 03/13/2019 for eval of chest pain. She underwent C 03/[address] 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 She returned to ED yesterday with c/o intermittent dizziness, intermittent hypotension, headache, generalized weakness and fluctuations in blood sugars. She denies any chest pain, palpitations, n/v, diaphoresis or syncope. Echo done 03/11/2019 showed EF 55-60%, mild to mod LVH, impaired relaxation, mild TR. Past History Past Medical History: CAD, diabetes, hypertension, hyperlipidemia, hypothyroidism Medications and Allergies Allergies Allergy/AdvReac Type Severity Reaction Status Date / Time codeine AdvReac Dizziness Verified 09/07/18 08:51 Home Medications Medication Instructions Recorded Confirmed Last Taken Type Famotidine [Pepcid] 20 mg PO BID 11/19/15 03/14/19 09/15/18 09:00 History Simvastatin [Zocor TAB] 40 mg PO QHS 11/19/15 03/14/19 09/15/18 21:00 History Valsartan/Hydrochlorothiazide 1 tab PO QDAY 11/19/15 03/14/19 09/15/18 09:00 History [Diovan Hct 160-25 mg] Carvedilol [Coreg] 12.5 mg PO BID #60 tablet 09/16/18 03/14/19 Unknown Rx Calcium Citrate/Vitamin D3 2 each PO BID 03/12/19 03/14/19 Unknown History [Citracal-Vit D3 200 mg-250 Tab] Levothyroxine [Synthroid] 50 mcg PO QAM 03/12/19 03/14/19 Unknown History Multivit-Min/Iron/Folic/Lutein 1 each PO DAILY 03/12/19 03/14/19 Unknown History [Multivitamin Women 50 Plus Tab] Temazepam 30 mg PO QHS 03/12/19 03/14/19 Unknown History glipiZIDE [Glucotrol] 10 mg PO BID 03/12/19 03/14/19 Unknown History Aspirin [Adult Low Dose Aspirin EC] 81 mg PO DAILY #30 tablet. 03/13/19 03/14/19 Unknown Rx Clopidogrel [Plavix] 75 mg PO QDAY #30 tablet 03/13/19 03/14/19 Unknown Rx ISOSORBIDE MONOnitrate [Imdur ER] 30 mg PO QDAY #30 tablet 03/13/19 03/14/19 Unknown Rx Lisinopril [Zestril TAB] 10 mg PO QDAY #30 tablet 03/13/19 03/14/19 Unknown Rx metFORMIN XR [Glucophage XR] 500 mg PO BID 03/14/19 03/14/19 03/14/19 History hydrALAZINE [Apresoline TAB] 100 mg PO BID 03/15/19 03/15/19 03/14/19 History Active Meds: Active Medications Aspirin (Halfprin Ec) 81 mg PO DAILY [facility] Last Admin: 03/15/19 09:25 Dose: 81 mg Documented by: Calcium Citrate (Citracal D 315mg-250 Units) 2 each PO BID [facility] Last Admin: 03/15/19 09:25 Dose: 2 each Documented by: Carvedilol (Coreg) 12.5 mg PO BID [facility] Last Admin: 03/15/19 09:25 Dose: 12.5 mg Documented by: Clopidogrel Bisulfate (Plavix) 75 mg PO QDAY [facility] Last Admin: 03/15/19 09:25 Dose: 75 mg Documented by: Famotidine (Pepcid) 20 mg PO BID [facility] Last Admin: 03/15/19 09:25 Dose: 20 mg Documented by: Glipizide (Glucotrol) 10 mg PO BIDDIAB [facility] Last Admin: 03/15/19 09:26 Dose: 10 mg Documented by: Hydrochlorothiazide (Hctz) 25 mg PO QDAY [facility] Last Admin: 03/15/19 10:52 Dose: 25 mg Documented by: Insulin Glargine (Lantus) 15 units SUB-Q QAMDIAB [facility] Last Admin: 03/15/19 10:35 Dose: 15 units Documented by: Insulin Human Lispro (Humalog) 0 unit SUB-Q ACHS [facility]; Protocol Last Admin: 03/15/19 08:21 Dose: Not Given Documented by: Isosorbide Mononitrate (Imdur) 30 mg PO QDAY [facility] Last Admin: 03/15/19 10:52 Dose: 30 mg Documented by: Levothyroxine Sodium (Synthroid) 50 mcg PO QAM@0600 [facility] Last Admin: 03/15/19 05:40 Dose: 50 mcg Documented by: Metformin HCl (Glucophage Xr) 500 mg PO BIDDIAB [facility] Last Admin: 03/15/19 09:26 Dose: 500 mg Documented by: Pravastatin Sodium (Pravachol) 80 mg PO QHS [facility] Temazepam (Restoril) 30 mg PO QHS [facility] Last Admin: 03/14/19 22:40 Dose: 30 mg Documented by: Valsartan (Diovan) 160 mg PO QDAY [facility] Last Admin: 03/15/19 10:52 Dose: 160 mg Documented by: Review of Systems Constitutional: weakness, lethargy, no weight loss, no weight gain, no fever, no chills, no sweats Ears, nose, mouth and throat: no ear pain, no nose pain, no sinus pressure, no sinus pain Cardiovascular: lightheadedness, high blood pressure, no chest pain, no orthopnea, no palpitations, no rapid/irregular heart beat, no edema, no syncope, no shortness of breath, no dyspnea on exertion, no paroxysmal nocturnal dyspnea, no leg edema Respiratory: no cough, no shortness of breath, no dyspnea on exertion, no congestion, no wheezing, no pain on inspiration Gastrointestinal: no abdominal pain, no nausea, no vomiting, no diarrhea, no constipation, no change in bowel habits Genitourinary Female: no pelvic pain, no flank pain, no dysuria, no urinary frequency, no urgency Musculoskeletal: no neck stiffness, no neck pain, no shooting arm pain, no arm numbness/tingling, no low back pain, no shooting leg pain Integumentary: no rash, no pruritis, no redness, no sores, no wounds Neurological: weakness, no head injury, no paralysis, no parathesias, no numbness, no tingling, no seizures, no syncope Psychiatric: no anxiety Endocrine: no cold intolerance, no heat intolerance Hematologic/Lymphatic: no easy bruising, no easy bleeding Allergic/Immunologic: no urticaria, no wheezing Physical Examination Vital Signs Temp Pulse Resp BP Pulse Ox 98.3 F 91 H 20 168/73 95 03/14/19 17:38 03/14/19 17:38 03/14/19 17:38 03/14/19 17:38 03/14/19 17:38 General appearance: no acute distress HEENT: Positive: PERRL, Normocephaly, Mucus Membranes Moist Neck: Positive: neck supple, trachea midline Cardiac: Positive: Reg Rate and Rhythm, S1/S2 Lungs: Positive: clear to auscultation Neuro: Positive: Grossly Intact Abdomen: Positive: Soft. Negative: Tender Skin: Negative: Rash, Wound Musculoskeletal: No Pain Extremities: Absent: edema Results 03/14/19 18:15 03/14/19 18:15 Coagulation 03/14/19 Range/Units 18:15 PT 13.7 (12.2-14.9) Sec. INR 0.99 (0.87-1.13) APTT 30.1 (24.2-36.6) Sec. CBC 03/14/19 Range/Units 18:15 WBC 6.0 (4.5-11.0) K/mm3 RBC 4.30 (3.65-5.03) M/mm3 Hgb 12.8 (10.1-14.3) gm/dl Hct 38.1 (30.3-42.9) % Plt Count 236 (140-440) K/mm3 Lymph # 2.1 (1.2-5.4) K/mm3 [place] # 0.8 (0.0-0.8) K/mm3 Eos # 0.2 (0.0-0.4) K/mm3 Baso # 0.0 (0.0-0.1) K/mm3 Comprehensive Metabolic Panel 03/14/19 Range/Units 18:15 Sodium 140 (137-145) mmol/L Potassium 5.0 D (3.6-5.0) mmol/L Chloride 119.4 H (98-107) mmol/L Carbon Dioxide 25 (22-30) mmol/L BUN 18 H (7-17) mg/dL Creatinine 0.9 (0.7-1.2) mg/dL Glucose 371 H (65-100) mg/dL Calcium 8.9 (8.4-10.2) mg/dL - Imaging and Cardiology Echo: report reviewed ( 03/11/2019 showed EF 55-60%, mild to mod LVH, impaired relaxation, mild TR. ) Cardiac cath: report reviewed ([facility] 03/[address] 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 ) EKG: report reviewed, image reviewed EKG interpretations - Telemetry EKG Rhythm: Sinus Rhythm - EKG Sinus rhythms and dysrhythmias: sinus rhythm Assessment and Plan Generalized weakness / lethargy / headache Consider head CT per primary. Obtain orthostatics. H/o HTN with intermittent hypotension noted at home BPs normal to elevated since admission. Obtain orthostatics. Cont home ASA, plavix, statin, coreg, valsartan, Imdur. CAD s/p recent PCI of RCA on 03/12 Pt denies chest pain, ECG with NAF, Byron negative for AMI. Echo done 03/11/2019 showed EF 55-60%, mild to mod LVH, impaired relaxation, mild TR. Cont home ASA, plavix, statin, coreg, valsartan, Imdur. HLP DM with hypergylcemia Per hospitalists H/o hypothyroidism Check thyroid profile. Elevated DDimer Consider further imaging per primary. Pt denies chest pain. The patient has been seen in conjunction with Dr. Landon who agrees with the assessment and plan of care.
--- NOTE | 2019-03-15 15:43 | Progress Note ---
Assessment and Plan / Recurrent chest pain Patient had a recent RCA stent placed reconsulted cardiology Serial Troponins for now Lexiscan not ordered follow CTA chest / CAD (coronary artery disease) s/p recent PCI of RCA on 03/12 ECG with NAF, Byron negative for AMI. Echo done 03/11/2019 showed EF 55-60%, mild to mod LVH, impaired relaxation, mild TR. Cont home ASA, plavix, statin, coreg, valsartan, Imdur. /Diabetes mellitus, type 2 COnt SSI coverage / HTN (hypertension) COnt antihypertensives / Dyslipidemia Cont statins /GERD (gastroesophageal reflux disease) Cont PPIs / Hypothyroidism Cont Synthyroid /Physical debility, ordered PT eval / DVT prophylaxis On Lovenox and GI prophylaxis Brief History 83-year-old female discharged a day before following admission for chest pain in which she underwent cardiac catheterization by Dr Clark and an RCA stent placement. Patient returns next day with what she reports is the same inter mittent chest pain and headache that made her come in to the hospital 3 days ago. CXR 1. Hypoinflation with atelectasis versus infiltrates both lung bases similar in appearance to the previous chest x-ray dated March 11, 2019. 2. Stable enlarged cardiac silhouette. 3. Marked degenerative change shoulder joints bilaterally. Subjective Date of service: 03/15/19 Interval history: Patient seen and examined c/o generalized weakness and intermittent chest pain Objective - Exam Narrative Exam: General appearance: Present: no acute distress, well-nourished - EENT Eyes: Present: PERRL ENT: hearing intact, clear oral mucosa - Neck Neck: Present: supple, normal ROM - Respiratory Respiratory effort: normal Respiratory: bilateral: CTA - Cardiovascular Heart rate: 87 Rhythm: regular Heart Sounds: Present: S1 & S2. Absent: rub, click - Extremities Extremities: no ischemia, pulses intact, pulses symmetrical, No edema Peripheral Pulses: within normal limits - Abdominal General gastrointestinal: Present: soft, non-tender, non-distended, normal bowel sounds Female genitourinary: Present: normal - Rectal Rectal Exam: deferred - Integumentary Integumentary: Present: clear, warm, dry - Musculoskeletal Musculoskeletal: gait normal, strength equal bilaterally - Psychiatric Psychiatric: appropriate mood/affect, intact judgment & insight - Neurologic Neurologic: CNII-XII intact, moves all extremities - Allied Health Allied health notes reviewed: nursing, case management - Constitutional Vitals: Vital Signs - 12hr 03/15/19 03/15/19 03/15/19 03:50 08:00 11:38 Temperature 98.6 F 98.9 F 98.2 F Pulse Rate 77 75 82 Respiratory 16 18 20 Rate Blood Pressure 141/66 Blood Pressure 166/79 176/87 [Left] O2 Sat by Pulse 95 95 97 Oximetry - Labs CBC & Chem 7: 03/14/19 18:15 03/14/19 18:15 Labs: Abnormal lab results 03/14/19 03/14/19 03/14/19 Range/Units 18:15 18:15 18:15 RDW 15.4 H (13.2-15.2) % [place] % (Auto) 13.3 H (0.0-7.3) % D-Dimer 443.59 H (0-234) ng/mlDDU Chloride 119.4 H (98-107) mmol/L BUN 18 H (7-17) mg/dL Glucose 371 H (65-100) mg/dL POC Glucose (70-105) 03/14/19 03/15/19 03/15/19 Range/Units 21:49 07:21 09:01 RDW (13.2-15.2) % [place] % (Auto) (0.0-7.3) % D-Dimer (0-234) ng/mlDDU Chloride (98-107) mmol/L BUN (7-17) mg/dL Glucose (65-100) mg/dL POC Glucose 299 H 221 H 197 H (70-105) 03/15/19 Range/Units 11:55 RDW (13.2-15.2) % [place] % (Auto) (0.0-7.3) % D-Dimer (0-234) ng/mlDDU Chloride (98-107) mmol/L BUN (7-17) mg/dL Glucose (65-100) mg/dL POC Glucose 243 H (70-105)
[2019-03-15] MEDS: FIORICET PO PRN (21:36)
[2019-03-15] MEDS: ANTIVERT PO PRN (21:36)
[2019-03-15] MEDS: PRAVACHOL PO SCH (21:37)
[2019-03-15] MEDS: RESTORIL PO SCH (21:39)
[2019-03-16] MEDS: SYNTHROID PO SCH (06:03)
[2019-03-16] MEDS: HumaLOG SUB-Q SCH ×4 (10:58→21:47)
[2019-03-16] MEDS: GLUCOTROL PO SCH ×2 (11:18→18:43)
[2019-03-16] MEDS: CITRACAL D 315MG-250 UNITS PO SCH ×2 (11:18→21:44)
[2019-03-16] MEDS: HCTZ PO SCH (11:19)
[2019-03-16] MEDS: ANTIVERT PO PRN (11:19)
[2019-03-16] MEDS: LANTUS SUB-Q SCH (11:19)
[2019-03-16] MEDS: IMDUR PO SCH (11:19)
[2019-03-16] MEDS: GLUCOPHAGE XR PO SCH ×2 (11:19→18:42)
[2019-03-16] MEDS: DIOVAN PO SCH (11:20)
[2019-03-16] MEDS: PEPCID PO SCH ×2 (11:20→21:45)
[2019-03-16] MEDS: PLAVIX PO SCH (11:20)
[2019-03-16] MEDS: HALFPRIN EC PO SCH (11:20)
[2019-03-16] MEDS: COREG PO SCH ×3 (11:20→22:05)
--- NOTE | 2019-03-16 12:18 | Progress Note ---
Assessment and Plan Stable cardiac status. Follow-up at our office in 2 weeks. - Patient Problems (1) Vertigo Current Visit: Yes Status: Acute (2) Chest pain Current Visit: Yes Status: Resolved (3) CAD (coronary artery disease) Current Visit: Yes Status: Chronic Qualifiers: Coronary Disease-Associated Artery/Lesion type: [place] artery (4) History of coronary artery stent placement Current Visit: Yes Status: Chronic (5) Hypertension Current Visit: Yes Status: Chronic Qualifiers: Hypertension type: essential hypertension Qualified Code(s): I10 - Essential (primary) hypertension (6) Diabetes mellitus, type 2 Current Visit: Yes Status: Chronic Qualifiers: Diabetes mellitus alf insulin use: without bed bug exterminator use Diabetes mellitus complication status: without complication Qualified Code(s): E11.9 - Type 2 diabetes mellitus without complications Subjective Date of service: 03/16/19 Principal diagnosis: Vertigo, CP, CAD, s/p recent PCI, HTN, DM Interval history: She has not experienced vertigo this morning. There is no chest pain. She is in normal sinus rhythm on the monitor. Objective Vital Signs Temp Pulse Resp BP Pulse Ox 03/16/19 07:57 97.5 F L 72 18 181/91 98 03/16/19 04:43 97.3 F L 70 20 114/62 96 03/16/19 03:00 77 03/15/19 23:52 98.7 F 87 20 118/69 99 03/15/19 20:34 98.7 F 79 20 158/78 97 03/15/19 15:46 76 97 03/15/19 15:45 98.5 F 77 76 H 133/71 95 - Physical Examination General: No Apparent Distress HEENT: Positive: EOMI, Normocephaly, Mucus Membranes Moist Neck: Positive: neck supple, trachea midline Cardiac: Positive: Reg Rate and Rhythm, S1/S2 Lungs: Positive: clear to auscultation Neuro: Positive: Grossly Intact Abdomen: Positive: Soft, Active Bowel Sounds. Negative: Tender Skin: Positive: Clear. Negative: Rash Musculoskeletal: Normal Range of Motion Extremities: Absent: edema - Imaging and Cardiology EKG: image reviewed Echo: report reviewed ( 03/11/2019 showed EF 55-60%, mild to mod LVH, impaired relaxation, mild TR. ) Cardiac cath: report reviewed ([facility] 03/[address] Clark which revealed lt main patent, lad distal 70% systolic bridging prior to lesion (treat medically), lcx patent om1-3 patent, rca mid to distal 90%, pci of rca with bs resolute gavin 3 .5 x 15 mm (two stents overlapping) and normal lv function. ) - Telemetry EKG Rhythm: Sinus Rhythm - EKG Sinus rhythms and dysrhythmias: sinus rhythm
--- NOTE | 2019-03-16 13:18 | Progress Note ---
Assessment and Plan Assessment and plan: 83-year-old female discharged a day before following admission for chest pain in which she underwent cardiac catheterization by Dr Clark and an RCA stent placement. Patient returns next day with what she reports is the same intermittent chest pain and headache that made her come in to the hospital 3 d ays ago. Recurrent chest pain Patient had a recent RCA stent placed reconsulted cardiology Serial Troponins for now CTA chest unremarkable CAD (coronary artery disease) s/p recent PCI of RCA on 03/12 ECG with NAF, Byron negative for AMI. Echo done 03/11/2019 showed EF 55-60%, mild to mod LVH, impaired relaxation, mild TR. Cont home ASA, plavix, statin, coreg, valsartan, Imdur. Diabetes mellitus, type 2 COnt SSI coverage HTN (hypertension) COnt antihypertensives Dyslipidemia Cont statins GERD (gastroesophageal reflux disease) Cont PPIs Hypothyroidism Cont Synthyroid Physical debility, ordered PT eval DVT prophylaxis On Lovenox and GI prophylaxis History Interval history: chest pain, Headache dizziness Hospitalist Physical - Physical exam Narrative exam: Gen: Not in acute distress, lying in bed, obese HEENT: Normocephalic, atraumatic Neck: supple, no JVD Heart: S1 and S2 reg, no murmurs, rubs or gallop Lungs: Clear, no crackles Abd: soft, non tender, non distended, normal BS Ext: No edema, no clubbing, no cyanosis, left arm av fistula Neuro: AAO x 3, no focal signs, moves all ext Psych:Normal mood - Constitutional Vitals: Temp Pulse Resp BP Pulse Ox 98.3 F 68 18 175/79 95 03/16/19 12:10 03/16/19 12:10 03/16/19 12:10 03/16/19 12:10 03/16/19 12:10 General appearance: Present: no acute distress Results - Labs CBC & Chem 7: 03/14/19 18:15 03/14/19 18:15 Labs: Laboratory Last Values WBC 6.0 K/mm3 (4.5-11.0) 03/14/19 18:15 RBC 4.30 M/mm3 (3.65-5.03) 03/14/19 18:15 Hgb 12.8 gm/dl (10.1-14.3) 03/14/19 18:15 Hct 38.1 % (30.3-42.9) 03/14/19 18:15 MCV 89 fl (79-97) 03/14/19 18:15 MCH 30 pg (28-32) 03/14/19 18:15 MCHC 34 % (30-34) 03/14/19 18:15 RDW 15.4 % (13.2-15.2) H 03/14/19 18:15 Plt Count 236 K/mm3 (140-440) 03/14/19 18:15 Lymph % (Auto) 34.8 % (13.4-35.0) 03/14/19 18:15 [place] % (Auto) 13.3 % (0.0-7.3) H 03/14/19 18:15 Eos % (Auto) 2.6 % (0.0-4.3) 03/14/19 18:15 Baso % (Auto) 0.4 % (0.0-1.8) 03/14/19 18:15 Lymph # 2.1 K/mm3 (1.2-5.4) 03/14/19 18:15 [place] # 0.8 K/mm3 (0.0-0.8) 03/14/19 18:15 Eos # 0.2 K/mm3 (0.0-0.4) 03/14/19 18:15 Baso # 0.0 K/mm3 (0.0-0.1) 03/14/19 18:15 Seg Neutrophils % 48.9 % (40.0-70.0) 03/14/19 18:15 Seg Neutrophils # 3.0 K/mm3 (1.8-7.7) 03/14/19 18:15 PT 13.7 Sec. (12.2-14.9) 03/14/19 18:15 INR 0.99 (0.87-1.13) 03/14/19 18:15 APTT 30.1 Sec. (24.2-36.6) 03/14/19 18:15 D-Dimer 443.59 ng/mlDDU (0-234) H 03/14/19 18:15 Sodium 140 mmol/L (137-145) 03/14/19 18:15 Potassium 5.0 mmol/L (3.6-5.0) D 03/14/19 18:15 Chloride 119.4 mmol/L (98-107) H 03/14/19 18:15 Carbon Dioxide 25 mmol/L (22-30) 03/14/19 18:15 Anion Gap 1 mmol/L 03/14/19 18:15 BUN 18 mg/dL (7-17) H 03/14/19 18:15 Creatinine 0.9 mg/dL (0.7-1.2) 03/14/19 18:15 Estimated GFR > 60 ml/min 03/14/19 18:15 BUN/Creatinine Ratio 20 % 03/14/19 18:15 Glucose 371 mg/dL (65-100) H 03/14/19 18:15 POC Glucose 218 (70-105) H 03/16/19 12:56 Calcium 8.9 mg/dL (8.4-10.2) 03/14/19 18:15 Troponin T < 0.010 ng/mL (0.00-0.029) 03/14/19 18:15 TSH 1.210 mlU/mL (0.270-4.200) 03/15/19 12:37 Free T4 1.32 ng/dL (0.76-1.46) 03/15/19 12:37 Blood Type A POSITIVE 03/14/19 18:15 Antibody Screen Negative 03/14/19 18:15 Active Medications - Current Medications Current Medications: Generic Name Dose Route Start Last Admin Trade Name Freq PRN Reason Stop Dose Admin Acetaminophen/Butalbital/Caffeine 1 tab 03/15/19 21:01 03/15/19 21:36 Fioricet PO 1 tab Q4H PRN Administration Headache Aspirin 81 mg 03/15/19 10:00 03/16/19 11:20 Halfprin Ec PO 81 mg DAILY ALICE Administration Calcium Citrate 2 each 03/14/19 22:00 03/16/19 11:18 Citracal D 315mg-250 Units PO 2 each BID ALICE Administration Carvedilol 12.5 mg 03/14/19 22:00 03/16/19 11:20 Coreg PO 12.5 mg BID ALICE Administration Clopidogrel Bisulfate 75 mg 03/14/19 22:00 03/16/19 11:20 Plavix PO 75 mg QDAY ALICE Administration Famotidine 20 mg 03/14/19 22:00 03/16/19 11:20 Pepcid PO 20 mg BID ALICE Administration Glipizide 10 mg 03/15/19 08:00 03/16/19 11:18 Glucotrol PO 10 mg BIDDIAB ALICE Administration Hydrochlorothiazide 25 mg 03/15/19 10:00 03/16/19 11:19 Hctz PO 25 mg QDAY ALICE Administration Insulin Glargine 15 units 03/15/19 10:00 03/16/19 11:19 Lantus SUB-Q 15 units QAMDIAB ALICE Administration Insulin Human Lispro 0 unit 03/14/19 22:00 03/16/19 13:13 Humalog SUB-Q 3 unit ACHS ALICE Administration Protocol Isosorbide Mononitrate 30 mg 03/15/19 10:00 03/16/19 11:19 Imdur PO 30 mg QDAY ALICE Administration Levothyroxine Sodium 50 mcg 03/15/19 06:00 03/16/19 06:03 Synthroid PO 50 mcg QAM@0600 ALICE Administration Meclizine HCl 12.5 mg 03/15/19 20:42 03/16/19 11:19 Antivert PO 12.5 mg Q12H PRN Administration Vertigo Metformin HCl 500 mg 03/15/19 08:00 03/16/19 11:19 Glucophage Xr PO 500 mg BIDDIAB ALICE Administration Pravastatin Sodium 80 mg 03/15/19 22:00 03/15/19 21:37 Pravachol PO 80 mg QHS ALICE Administration Temazepam 30 mg 03/14/19 22:00 03/15/19 21:39 Restoril PO 30 mg QHS ALICE Administration Valsartan 160 mg 03/15/19 10:00 03/16/19 11:20 Diovan PO 160 mg QDAY ALICE Administration
--- NOTE | 2019-03-16 16:28 | Cat Scan Report ---
PROCEDURE: CT HEAD/BRAIN WO CON TECHNIQUE: Computerized tomography of the head was performed without contrast material. CT DOSE LENGTH PRODUCT: 920.5 mGy-cm. HISTORY: headache COMPARISONS: CT head September 07, 2018. FINDINGS: Decreased attenuation regions in the periventricular and subcortical white matter are nonspecific and may represent small vessel ischemic disease, encephalopathy, edema, or a demyelinating process. Smal l vessel ischemic disease (leukoaraiosis) favored. Vascular calcifications. There is no evidence for acute ischemia. There is no hemorrhage. There is no midline shift. There is no hydrocephalus. There is no mass. Age appropriate espinal-white matter attenuation is noted. There is no calvarial fracture. The temporal bones demonstrate aerated mastoid air cells. The middle ears appear unremarkable. Paranasal sinuses are unremarkable. Globes are intact. IMPRESSION: * No acute intracranial findings. * Chronic ischemic disease. This document is electronically signed by hCito Swift MD., March 16 2019 04:26:52 PM ET
--- NOTE | 2019-03-16 16:46 | Cat Scan Report ---
PROCEDURE: CT ANGIO CHEST TECHNIQUE: TECHNIQUE: Computerized tomographic angiography of the chest was performed after the IV i njection of iodinated nonionic contrast including image processing. The image data was postprocessed using 2-dimensional multiplanar reformatted (MPR) and 3-dimensional (MIP and/or volume rendered) joseph hniques. Automated exposure control, adjustment of mA and/or kV according to patient size, or iterati ve reconstruction dose optimization techniques were utilized. Coronal and sagittal reconstructed imag ing provided. CT DOSE LENGTH PRODUCT: 840.9 mGy-cm. HISTORY: possible PE COMPARISONS: None currently available. FINDINGS: No pneumothorax. No effusion. No consolidation. No endobronchial lesion. Minimal bibasilar dependent subsegmental atelectasis. Main pulmonary artery is unremarkable. No pulmonary embolism. No aneurysm. No dissection. Major branch arteries are within normal limits. [id number] atherosc lerotic disease. Mild cardiomegaly. No pericardial effusion. Coronary artery disease. There is no axillary adenopathy. There is no hilar or mediastinal mass or adenopathy. Right thyroid lobe not identified. Prominent heterogeneous left thyroid lobe. Patient may be status p ost right thyroidectomy. Limited images of the esophagus are unremarkable. Bones: No suspicious osseous lesions on this limited examination of the skeleton. Metastatic disease better evaluated with bone scan. Degenerative changes are present in the spine. IMPRESSION: * No acute findings. This document is electronically signed by Chito Swift MD., March 16 2019 04:44:03 PM ET
[2019-03-16] MEDS: FIORICET PO PRN (20:14)
[2019-03-16] MEDS: RESTORIL PO SCH (21:44)
[2019-03-16] MEDS: PRAVACHOL PO SCH (21:44)
[2019-03-16] MEDS: TESSALON PERLES PO SCH (22:06)
[2019-03-17] MEDS: SYNTHROID PO SCH (05:29)
[2019-03-17] MEDS: TESSALON PERLES PO SCH ×4 (05:30→21:42)
[2019-03-17] MEDS: HumaLOG SUB-Q SCH ×4 (08:50→21:43)
[2019-03-17] MEDS: GLUCOPHAGE XR PO SCH ×2 (10:26→17:34)
[2019-03-17] MEDS: GLUCOTROL PO SCH ×2 (10:26→17:34)
[2019-03-17] MEDS: CITRACAL D 315MG-250 UNITS PO SCH ×2 (10:26→21:42)
[2019-03-17] MEDS: LOVENOX SUB-Q SCH (10:26)
[2019-03-17] MEDS: PLAVIX PO SCH (10:26)
[2019-03-17] MEDS: DIOVAN PO SCH (10:26)
[2019-03-17] MEDS: HCTZ PO SCH (10:27)
[2019-03-17] MEDS: COREG PO SCH ×2 (10:27→21:42)
[2019-03-17] MEDS: PEPCID PO SCH ×2 (10:27→21:43)
[2019-03-17] MEDS: IMDUR PO SCH (10:27)
[2019-03-17] MEDS: HALFPRIN EC PO SCH (10:27)
--- NOTE | 2019-03-17 12:04 | Progress Note ---
Subjective Date of service: 03/17/19 Principal diagnosis: Vertigo, CP, CAD, s/p recent PCI, HTN, DM Interval history: patient see and is still experiencing severe vertigo plan MRI suspect diabetes is cause can not exclude small lacunar stroke based on age Objective - Vital Sign Vital Signs - 12hr 03/17/19 03/17/19 03/17/19 04:00 04:02 05:22 Temperature 98.0 F 98 F Pulse Rate 69 71 68 Respiratory 18 Rate Blood Pressure 131/67 Blood Pressure 141/68 [Left] O2 Sat by Pulse 97 Oximetry 03/17/19 07:24 Temperature 97.9 F Pulse Rate 71 Respiratory 18 Rate Blood Pressure 147/76 Blood Pressure [Left] O2 Sat by Pulse 94 Oximetry - Laboratory Findings CBC and BMP: 03/14/19 18:15 03/14/19 18:15 Abnormal Lab Findings: Abnormal Labs 03/14/19 03/14/19 03/14/19 18:15 18:15 18:15 RDW 15.4 H [place] % (Auto) 13.3 H D-Dimer 443.59 H Chloride 119.4 H BUN 18 H Glucose 371 H POC Glucose 03/14/19 03/15/19 03/15/19 21:49 07:21 09:01 RDW [place] % (Auto) D-Dimer Chloride BUN Glucose POC Glucose 299 H 221 H 197 H 03/15/19 03/15/19 03/15/19 11:55 16:33 21:21 RDW [place] % (Auto) D-Dimer Chloride BUN Glucose POC Glucose 243 H 218 H 156 H 03/16/19 03/16/19 03/16/19 08:02 12:56 16:41 RDW [place] % (Auto) D-Dimer Chloride BUN Glucose POC Glucose 147 H 218 H 146 H 03/16/19 21:11 RDW [place] % (Auto) D-Dimer Chloride BUN Glucose POC Glucose 216 H
[2019-03-17] MEDS: LANTUS SUB-Q SCH (12:47)
--- NOTE | 2019-03-17 13:45 | Progress Note ---
Assessment and Plan Assessment and plan: 83-year-old female discharged a day before following admission for chest pain in which she underwent cardiac catheterization by Dr Clark and an RCA stent placement. Patient returns next day with what she reports is the same intermittent chest pain and headache that made her come in to the hospital 3 d ays ago. Recurrent chest pain Patient had a recent RCA stent placed reconsulted cardiologym, and she was evaluated Serial Troponins neg CTA chest unremarkable CAD (coronary artery disease) s/p recent PCI of RCA on 03/12 ECG with NAF, Byron negative for AMI. Echo done 03/11/2019 showed EF 55-60%, mild to mod LVH, impaired relaxation, mild TR. Cont home ASA, plavix, statin, coreg, valsartan, Imdur. Diabetes mellitus, type 2 COnt SSI coverage Dizziness,headache. CT head unremarkable. Consulted Neurology for MRI Brain tomorrow HTN (hypertension) COnt antihypertensives Dyslipidemia Cont statins GERD (gastroesophageal reflux disease) Cont PPIs Hypothyroidism Cont Synthyroid Physical debility, ordered PT eval DVT prophylaxis On Lovenox and GI prophylaxis History Interval history: Chest pain, resolved Headache less Still c/o dizziness Hospitalist Physical - Physical exam Narrative exam: Gen: Not in acute distress, lying in bed, obese HEENT: Normocephalic, atraumatic Neck: supple, no JVD Heart: S1 and S2 reg, no murmurs, rubs or gallop Lungs: Clear, no crackles Abd: soft, non tender, non distended, normal BS Ext: No edema, no clubbing, no cyanosis, left arm av fistula Neuro: AAO x 3, no focal signs, moves all ext Psych:Normal mood - Constitutional Vitals: Temp Pulse Resp BP Pulse Ox 97.9 F 73 20 176/83 94 03/17/19 07:24 03/17/19 12:12 03/17/19 12:12 03/17/19 12:12 03/17/19 12:12 General appearance: Present: no acute distress Results - Labs CBC & Chem 7: 03/14/19 18:15 03/14/19 18:15 Labs: Laboratory Last Values WBC 6.0 K/mm3 (4.5-11.0) 03/14/19 18:15 RBC 4.30 M/mm3 (3.65-5.03) 03/14/19 18:15 Hgb 12.8 gm/dl (10.1-14.3) 03/14/19 18:15 Hct 38.1 % (30.3-42.9) 03/14/19 18:15 MCV 89 fl (79-97) 03/14/19 18:15 MCH 30 pg (28-32) 03/14/19 18:15 MCHC 34 % (30-34) 03/14/19 18:15 RDW 15.4 % (13.2-15.2) H 03/14/19 18:15 Plt Count 236 K/mm3 (140-440) 03/14/19 18:15 Lymph % (Auto) 34.8 % (13.4-35.0) 03/14/19 18:15 [place] % (Auto) 13.3 % (0.0-7.3) H 03/14/19 18:15 Eos % (Auto) 2.6 % (0.0-4.3) 03/14/19 18:15 Baso % (Auto) 0.4 % (0.0-1.8) 03/14/19 18:15 Lymph # 2.1 K/mm3 (1.2-5.4) 03/14/19 18:15 [place] # 0.8 K/mm3 (0.0-0.8) 03/14/19 18:15 Eos # 0.2 K/mm3 (0.0-0.4) 03/14/19 18:15 Baso # 0.0 K/mm3 (0.0-0.1) 03/14/19 18:15 Seg Neutrophils % 48.9 % (40.0-70.0) 03/14/19 18:15 Seg Neutrophils # 3.0 K/mm3 (1.8-7.7) 03/14/19 18:15 PT 13.7 Sec. (12.2-14.9) 03/14/19 18:15 INR 0.99 (0.87-1.13) 03/14/19 18:15 APTT 30.1 Sec. (24.2-36.6) 03/14/19 18:15 D-Dimer 443.59 ng/mlDDU (0-234) H 03/14/19 18:15 Sodium 140 mmol/L (137-145) 03/14/19 18:15 Potassium 5.0 mmol/L (3.6-5.0) D 03/14/19 18:15 Chloride 119.4 mmol/L (98-107) H 03/14/19 18:15 Carbon Dioxide 25 mmol/L (22-30) 03/14/19 18:15 Anion Gap 1 mmol/L 03/14/19 18:15 BUN 18 mg/dL (7-17) H 03/14/19 18:15 Creatinine 0.9 mg/dL (0.7-1.2) 03/14/19 18:15 Estimated GFR > 60 ml/min 03/14/19 18:15 BUN/Creatinine Ratio 20 % 03/14/19 18:15 Glucose 371 mg/dL (65-100) H 03/14/19 18:15 POC Glucose 232 (70-105) H 03/17/19 12:14 Calcium 8.9 mg/dL (8.4-10.2) 03/14/19 18:15 Troponin T < 0.010 ng/mL (0.00-0.029) 03/14/19 18:15 TSH 1.210 mlU/mL (0.270-4.200) 03/15/19 12:37 Free T4 1.32 ng/dL (0.76-1.46) 03/15/19 12:37 Blood Type A POSITIVE 03/14/19 18:15 Antibody Screen Negative 03/14/19 18:15 Active Medications - Current Medications Current Medications: Generic Name Dose Route Start Last Admin Trade Name Freq PRN Reason Stop Dose Admin Acetaminophen/Butalbital/Caffeine 1 tab 03/15/19 21:01 03/16/19 20:14 Fioricet PO 1 tab Q4H PRN Administration Headache Aspirin 81 mg 03/15/19 10:00 03/17/19 10:27 Halfprin Ec PO 81 mg DAILY ALICE Administration Benzonatate 100 mg 03/16/19 22:00 03/17/19 05:30 Tessalon Perles PO 100 mg Q6H ALICE Administration Calcium Citrate 2 each 03/14/19 22:00 03/17/19 10:26 Citracal D 315mg-250 Units PO 2 each BID ALICE Administration Carvedilol 12.5 mg 03/14/19 22:00 03/17/19 10:27 Coreg PO 12.5 mg BID ALICE Administration Clopidogrel Bisulfate 75 mg 03/14/19 22:00 03/17/19 10:26 Plavix PO 75 mg QDAY ALICE Administration Enoxaparin Sodium 40 mg 03/17/19 10:00 03/17/19 10:26 Lovenox SUB-Q 40 mg DAILY ALICE Administration Famotidine 20 mg 03/14/19 22:00 03/17/19 10:27 Pepcid PO 20 mg BID ALICE Administration Glipizide 10 mg 03/15/19 08:00 03/17/19 10:26 Glucotrol PO 10 mg BIDDIAB ALICE Administration Hydrochlorothiazide 25 mg 03/15/19 10:00 03/17/19 10:27 Hctz PO 25 mg QDAY ALICE Administration Insulin Glargine 15 units 03/15/19 10:00 03/17/19 12:47 Lantus SUB-Q 15 units QAMDIAB ALICE Administration Insulin Human Lispro 0 unit 03/14/19 22:00 03/17/19 12:46 Humalog SUB-Q 3 unit ACHS ALICE Administration Protocol Isosorbide Mononitrate 30 mg 03/15/19 10:00 03/17/19 10:27 Imdur PO 30 mg QDAY ALICE Administration Levothyroxine Sodium 50 mcg 03/15/19 06:00 03/17/19 05:29 Synthroid PO 50 mcg QAM@0600 ALICE Administration Meclizine HCl 12.5 mg 03/15/19 20:42 03/16/19 11:19 Antivert PO 12.5 mg Q12H PRN Administration Vertigo Metformin HCl 500 mg 03/15/19 08:00 03/17/19 10:26 Glucophage Xr PO 500 mg BIDDIAB ALICE Administration Pravastatin Sodium 80 mg 03/15/19 22:00 03/16/19 21:44 Pravachol PO 80 mg QHS ALICE Administration Temazepam 30 mg 03/14/19 22:00 03/16/19 21:44 Restoril PO 30 mg QHS ALICE Administration Valsartan 160 mg 03/15/19 10:00 03/17/19 10:26 Diovan PO 160 mg QDAY ALICE Administration
[2019-03-17] MEDS: ANTIVERT PO PRN (14:09)
--- NOTE | 2019-03-17 15:01 | Progress Note ---
Assessment and Plan Increase Coreg and Imdur. Stable cardiac status. 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 No chest pain. She also complains of some gait imbalance. Objective Vital Signs Temp Pulse Resp BP BP Pulse Ox 03/17/19 12:12 73 20 176/83 94 03/17/19 07:24 97.9 F 71 18 147/76 94 03/17/19 05:22 98 F 68 141/68 03/17/19 04:02 98.0 F 71 18 131/67 97 03/17/19 04:00 69 03/16/19 23:16 98.0 F 82 18 119/52 95 03/16/19 20:13 85 189/80 03/16/19 20:04 98.4 F 85 18 189/80 91 03/16/19 19:54 84 96 03/16/19 16:10 98.0 F 79 18 143/76 98 - Physical Examination General: No Apparent Distress HEENT: Positive: EOMI, Normocephaly, Mucus Membranes Moist Neck: Positive: neck supple, trachea midline Cardiac: Positive: Reg Rate and Rhythm, S1/S2 Neuro: Positive: Grossly Intact Abdomen: Positive: Soft, Active Bowel Sounds. Negative: Tender Skin: Positive: Clear. Negative: Rash Musculoskeletal: Normal Range of Motion Extremities: Absent: edema - Imaging and Cardiology EKG: image reviewed Echo: report reviewed ( 03/11/2019 showed EF 55-60%, mild to mod LVH, impaired relaxation, mild TR. ) Cardiac cath: report reviewed ([facility] 03/[address] 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 ) - Telemetry EKG Rhythm: Sinus Rhythm - EKG Sinus rhythms and dysrhythmias: sinus rhythm
[2019-03-17] MEDS: FIORICET PO PRN (16:02)
[2019-03-17 19:31] LABS: BUN/Creatinine Ratio 17; Blood Urea Nitrogen 15 mg/dL (7-17); Hemolysis Index 1
[2019-03-17] MEDS: PRAVACHOL PO SCH (21:42)
[2019-03-17] MEDS: RESTORIL PO SCH (21:43)
--- NOTE | 2019-03-18 | Consultation ---
HISTORY OF PRESENT ILLNESS: This is an 84-year-old black female who presents to [facility] as a result of increased weakness, problems with severe headaches. She presented to the hospital and feels dizzy, disoriented, had the onset of slurred speech, dizziness, severe headache. She denied being this way before. She has a history of diabetes. Her A1c level is 9.3 on admission and her glucose was 273. Since admission, she is noted to have a thyroid profile, which was normal. She has had testing which showed a CT of the head, which was essentially unremarkable except for scattered white matter changes, which are likely age related. She has had a CTA of the chest, which shows osseous lesions on the evaluation of skeleton and degenerative changes in the spine are present. PHYSICAL EXAMINATION: GENERAL: Reveals her to be alert, slightly confused, has difficulty providing a history. VITAL SIGNS: Her current blood pressure is 147/76, respirations are 18, pulse rate is 71, temperature is 97.9 degrees, pO2 on room air is 94%. HEENT: Ocular movements right and left showed nystagmus on lateral gaze bilaterally. NEUROLOGIC: Weakness of case management assistant is present bilaterally. She is slow to speak, seems slightly difficult to arouse, and cannot focus her attention. Gross motor examination is unremarkable. No focal motor weakness is noted. Sensory examination is really impossible to test. Hearing is intact. IMPRESSION AND PLAN: Ongoing vertigo in a patient who is diabetic and has had elevated blood sugar. I would recommend again MRI, EEG. I will further assess the patient's condition. JOB# [id number] EDEL/NTS
[2019-03-18] MEDS: TESSALON PERLES PO SCH ×4 (04:56→22:16)
[2019-03-18] MEDS: SYNTHROID PO SCH (04:59)
[2019-03-18] MEDS: LANTUS SUB-Q SCH (09:02)
[2019-03-18] MEDS: GLUCOTROL PO SCH ×2 (09:03→16:29)
[2019-03-18] MEDS: LOVENOX SUB-Q SCH (09:03)
[2019-03-18] MEDS: HCTZ PO SCH (09:03)
[2019-03-18] MEDS: ANTIVERT PO PRN (09:03)
[2019-03-18] MEDS: DIOVAN PO SCH (09:03)
[2019-03-18] MEDS: COREG PO SCH ×2 (09:03→22:03)
[2019-03-18] MEDS: PLAVIX PO SCH (09:03)
[2019-03-18] MEDS: IMDUR PO SCH (09:03)
[2019-03-18] MEDS: HALFPRIN EC PO SCH (09:03)
[2019-03-18] MEDS: GLUCOPHAGE XR PO SCH ×2 (09:04→16:29)
[2019-03-18] MEDS: CITRACAL D 315MG-250 UNITS PO SCH ×2 (09:04→22:02)
[2019-03-18] MEDS: HumaLOG SUB-Q SCH ×4 (09:04→22:14)
[2019-03-18] MEDS: PEPCID PO SCH ×2 (09:04→22:03)
--- NOTE | 2019-03-18 13:30 | Progress Note ---
Assessment and Plan Currently stable cardiac status. For brain MRI today per neurology. The patient has been seen in conjunction with Dr. Choe who agrees with the assessment and plan of care. - Patient Problems (1) Vertigo Current Visit: Yes Status: Acute (2) Chest pain Current Visit: Yes Status: Resolved (3) CAD (coronary artery disease) Current Visit: Yes Status: Chronic Qualifiers: Coronary Disease-Associated Artery/Lesion type: [place] artery (4) History of coronary artery stent placement Current Visit: Yes Status: Chronic (5) Hypertension Current Visit: Yes Status: Chronic Qualifiers: Hypertension type: essential hypertension Qualified Code(s): I10 - Essential (primary) hypertension (6) Diabetes mellitus, type 2 Current Visit: Yes Status: Chronic Qualifiers: Diabetes mellitus residential insulin use: without residential use Diabetes mellitus complication status: without complication Qualified Code(s): E11.9 - Type 2 diabetes mellitus without complications Subjective Date of service: 03/18/19 Principal diagnosis: Vertigo, CP, CAD, s/p recent PCI, HTN, DM Interval history: pt resting in bed, no current cardiac complaints. c/o vertigo. BPs remain labile. in SR on telemetry. daughter at bedside. Objective Last Vital Signs Temp 98.2 F 03/18/19 08:55 Pulse 70 03/18/19 08:55 Resp 20 03/18/19 08:55 BP 160/75 03/18/19 08:55 Pulse Ox 96 03/18/19 08:55 - Physical Examination General: No Apparent Distress HEENT: Positive: EOMI, Normocephaly, Mucus Membranes Moist Neck: Positive: neck supple, trachea midline Cardiac: Positive: Reg Rate and Rhythm, S1/S2 Lungs: Positive: clear to auscultation Neuro: Positive: Grossly Intact Abdomen: Positive: Soft, Active Bowel Sounds. Negative: Tender Skin: Positive: Clear. Negative: Rash Musculoskeletal: Normal Range of Motion Extremities: Absent: edema - Labs and Meds Comprehensive Metabolic Panel 03/17/19 Range/Units 18:09 Sodium 140 (137-145) mmol/L Potassium 3.9 D (3.6-5.0) mmol/L Chloride 97.8 L (98-107) mmol/L Carbon Dioxide 31 H (22-30) mmol/L BUN 15 (7-17) mg/dL Creatinine 0.9 (0.7-1.2) mg/dL Glucose 123 H (65-100) mg/dL Calcium 10.0 (8.4-10.2) mg/dL - Imaging and Cardiology EKG: image reviewed Echo: report reviewed ( 03/11/2019 showed EF 55-60%, mild to mod LVH, impaired relaxation, mild TR. ) Cardiac cath: report reviewed ([facility] 03/[address] 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 ) - Telemetry EKG Rhythm: Sinus Rhythm - EKG Sinus rhythms and dysrhythmias: sinus rhythm
[2019-03-18] MEDS: FIORICET PO PRN (14:17)
--- NOTE | 2019-03-18 17:31 | Progress Note ---
Assessment and Plan Assessment and plan: 83-year-old female discharged a day before following admission for chest pain in which she underwent cardiac catheterization by Dr Clark and an RCA stent placement. Patient returns next day with what she reports is the same intermittent chest pain and headache, dizziness. She was admitted, evaluated by cardiology, Neurology. She was continued on Aspirin, Plavix, statin, coreg, Imdur for CAD. Patient had dizziness, CT head unremarkaable. MRI Brain ordered not yet done. Patient still c/o dizinness with difficulty walking. Likely dc home if MRI neg. May need further input from neurology prior to discharge. Recurrent chest pain Patient had a recent RCA stent placed reconsulted cardiologym, and she was evaluated Serial Troponins neg CTA chest unremarkable CAD (coronary artery disease) s/p recent PCI of RCA on 03/12 ECG with NAF, Byron negative for AMI. Echo done 03/11/2019 showed EF 55-60%, mild to mod LVH, impaired relaxation, mild TR. Cont home ASA, plavix, statin, coreg, valsartan, Imdur. Diabetes mellitus, type 2 COnt SSI coverage Dizziness,headache. CT head unremarkable. Neurology followinhg for MRI Brain today HTN (hypertension) COnt antihypertensives Dyslipidemia Cont statins GERD (gastroesophageal reflux disease) Cont PPIs Hypothyroidism Cont Synthyroid Physical debility, ordered PT eval DVT prophylaxis On Lovenox and GI prophylaxis History Interval history: Chest pain, resolved Headache improved Still c/o dizziness MRI Brain not done yet Hospitalist Physical - Physical exam Narrative exam: Gen: Not in acute distress, lying in bed, obese HEENT: Normocephalic, atraumatic Neck: supple, no JVD Heart: S1 and S2 reg, no murmurs, rubs or gallop Lungs: Clear, no crackles Abd: soft, non tender, non distended, normal BS Ext: No edema, no clubbing, no cyanosis, Neuro: AAO x 3, no focal signs, moves all ext Psych:Normal mood - Constitutional Vitals: Temp Pulse Resp BP Pulse Ox 98.2 F 70 20 160/75 96 03/18/19 08:55 03/18/19 08:55 03/18/19 08:55 03/18/19 08:55 03/18/19 08:55 General appearance: Present: no acute distress Results - Labs CBC & Chem 7: 03/14/19 18:15 04/28/19 18:09 Labs: Laboratory Last Values WBC 6.0 K/mm3 (4.5-11.0) 03/14/19 18:15 RBC 4.30 M/mm3 (3.65-5.03) 03/14/19 18:15 Hgb 12.8 gm/dl (10.1-14.3) 03/14/19 18:15 Hct 38.1 % (30.3-42.9) 03/14/19 18:15 MCV 89 fl (79-97) 03/14/19 18:15 MCH 30 pg (28-32) 03/14/19 18:15 MCHC 34 % (30-34) 03/14/19 18:15 RDW 15.4 % (13.2-15.2) H 03/14/19 18:15 Plt Count 236 K/mm3 (140-440) 03/14/19 18:15 Lymph % (Auto) 34.8 % (13.4-35.0) 03/14/19 18:15 Gates % (Auto) 13.3 % (0.0-7.3) H 03/14/19 18:15 Eos % (Auto) 2.6 % (0.0-4.3) 03/14/19 18:15 Baso % (Auto) 0.4 % (0.0-1.8) 03/14/19 18:15 Lymph # 2.1 K/mm3 (1.2-5.4) 03/14/19 18:15 Gates # 0.8 K/mm3 (0.0-0.8) 03/14/19 18:15 Eos # 0.2 K/mm3 (0.0-0.4) 03/14/19 18:15 Baso # 0.0 K/mm3 (0.0-0.1) 03/14/19 18:15 Seg Neutrophils % 48.9 % (40.0-70.0) 03/14/19 18:15 Seg Neutrophils # 3.0 K/mm3 (1.8-7.7) 03/14/19 18:15 PT 13.7 Sec. (12.2-14.9) 03/14/19 18:15 INR 0.99 (0.87-1.13) 03/14/19 18:15 APTT 30.1 Sec. (24.2-36.6) 03/14/19 18:15 D-Dimer 443.59 ng/mlDDU (0-234) H 03/14/19 18:15 Sodium 140 mmol/L (137-145) 03/17/19 18:09 Potassium 3.9 mmol/L (3.6-5.0) D 03/17/19 18:09 Chloride 97.8 mmol/L (98-107) L 03/17/19 18:09 Carbon Dioxide 31 mmol/L (22-30) H 03/17/19 18:09 Anion Gap 15 mmol/L 03/17/19 18:09 BUN 15 mg/dL (7-17) 03/17/19 18:09 Creatinine 0.9 mg/dL (0.7-1.2) 03/17/19 18:09 Estimated GFR > 60 ml/min 03/17/19 18:09 BUN/Creatinine Ratio 17 % 03/17/19 18:09 Glucose 123 mg/dL (65-100) H 03/17/19 18:09 POC Glucose 136 (70-105) H 03/18/19 16:20 Calcium 10.0 mg/dL (8.4-10.2) 03/17/19 18:09 Troponin T < 0.010 ng/mL (0.00-0.029) 03/17/19 18:09 TSH 1.210 mlU/mL (0.270-4.200) 03/15/19 12:37 Free T4 1.32 ng/dL (0.76-1.46) 03/15/19 12:37 Blood Type A POSITIVE 03/14/19 18:15 Antibody Screen Negative 03/14/19 18:15 Active Medications - Current Medications Current Medications: Generic Name Dose Route Start Last Admin Trade Name Freq PRN Reason Stop Dose Admin Acetaminophen/Butalbital/Caffeine 1 tab 03/15/19 21:01 03/18/19 14:17 Fioricet PO 1 tab Q4H PRN Administration Headache Aspirin 81 mg 03/15/19 10:00 03/18/19 09:03 Halfprin Ec PO 81 mg DAILY ALICE Administration Benzonatate 100 mg 03/16/19 22:00 03/18/19 16:33 Tessalon Perles PO 100 mg Q6H ALICE Administration Calcium Citrate 2 each 03/14/19 22:00 03/18/19 09:04 Citracal D 315mg-250 Units PO 2 each BID ALICE Administration Carvedilol 25 mg 03/17/19 14:59 03/18/19 09:03 Coreg PO 25 mg BID ALICE Administration Clopidogrel Bisulfate 75 mg 03/14/19 22:00 03/18/19 09:03 Plavix PO 75 mg QDAY ALICE Administration Enoxaparin Sodium 40 mg 03/17/19 10:00 03/18/19 09:03 Lovenox SUB-Q 40 mg DAILY ALICE Administration Famotidine 20 mg 03/14/19 22:00 03/18/19 09:04 Pepcid PO 20 mg BID ALICE Administration Glipizide 10 mg 03/15/19 08:00 03/18/19 16:29 Glucotrol PO 10 mg BIDDIAB ALICE Administration Hydrochlorothiazide 25 mg 03/15/19 10:00 03/18/19 09:03 Hctz PO 25 mg QDAY [facility] Administration Insulin Glargine 15 units 03/15/19 10:00 03/18/19 09:02 Lantus SUB-Q 15 units QAMDIAB [facility] Administration Insulin Human Lispro 0 unit 03/14/19 22:00 03/18/19 16:29 Humalog SUB-Q [facility] Protocol Isosorbide Mononitrate 60 mg 03/17/19 14:58 03/18/19 09:03 Imdur PO 60 mg QDAY [facility] Administration Levothyroxine Sodium 50 mcg 03/15/19 06:00 03/18/19 04:59 Synthroid PO 50 mcg QAM@0600 ALICE Administration Meclizine HCl 12.5 mg 03/15/19 20:42 03/18/19 09:03 Antivert PO 12.5 mg Q12H PRN Administration Vertigo Metformin HCl 500 mg 03/15/19 08:00 03/18/19 16:29 Glucophage Xr PO 500 mg BIDDIAB ALICE Administration Pravastatin Sodium 80 mg 03/15/19 22:00 03/17/19 21:42 Pravachol PO 80 mg QHS ALICE Administration Temazepam 30 mg 03/14/19 22:00 03/17/19 21:43 Restoril PO 30 mg QHS ALICE Administration Valsartan 160 mg 03/15/19 10:00 03/18/19 09:03 Diovan PO 160 mg QDAY ALICE Administration
--- NOTE | 2019-03-18 19:10 | Magnetic Resonance Report ---
PROCEDURE: MRI brain without contrast. TECHNIQUE: Magnetic resonance imaging of the brain was performed without contrast material. HISTORY: Seizure. COMPARISONS: CT head 03/16/2019. FINDINGS: The ventricles are normal in size. There is some increased T2 and FLAIR signal intensity surrounding the lateral ventricles. This is consistent with chronic microvascular ischemic change. There may be a n old lacunar infarct in the left cerebellar hemisphere. There are no mass lesions. There is no intra cranial hemorrhage. There is no evidence of restricted diffusion. The mastoid air cells and paranasal sinuses are grossly clear. IMPRESSION: Chronic ischemic changes as described. Normal study for age. This document is electronically signed by Quintin Carreon MD., March 18 2019 07:08:46 PM ET
[2019-03-18] MEDS: RESTORIL PO SCH (22:02)
[2019-03-18] MEDS: PRAVACHOL PO SCH (22:02)
[2019-03-19] MEDS: TESSALON PERLES PO SCH ×4 (05:00→21:55)
[2019-03-19] MEDS: SYNTHROID PO SCH (05:38)
[2019-03-19] MEDS: HumaLOG SUB-Q SCH ×4 (08:34→21:50)
[2019-03-19] MEDS: LANTUS SUB-Q SCH (08:35)
--- NOTE | 2019-03-19 09:04 | Progress Note ---
Subjective Date of service: 03/19/19 Principal diagnosis: Vertigo, CP, CAD, s/p recent PCI, HTN, DM Interval history: no evidence of ischemic stroke on the MRI and suspect vertigo is due to chronic microvascular ZIGZAG STITCHER disease noted on the MRI... this is being managed other factors ie age contribute Objective - Vital Sign Vital Signs - 12hr 03/18/19 03/18/19 03/19/19 22:03 23:54 08:34 Temperature 98.0 F Pulse Rate 81 77 68 Respiratory 18 18 Rate Blood Pressure 124/69 107/44 155/76 O2 Sat by Pulse 90 94 Oximetry 03/19/19 08:35 Temperature 97.7 F Pulse Rate Respiratory Rate Blood Pressure O2 Sat by Pulse Oximetry - Laboratory Findings CBC and BMP: 03/14/19 18:15 03/17/19 18:09 Abnormal Lab Findings: Abnormal Labs 03/14/19 03/14/19 03/14/19 18:15 18:15 18:15 RDW 15.4 H [place] % (Auto) 13.3 H D-Dimer 443.59 H Chloride 119.4 H Carbon Dioxide BUN 18 H Glucose 371 H POC Glucose 03/14/19 03/15/19 03/15/19 21:49 07:21 09:01 RDW [place] % (Auto) D-Dimer Chloride Carbon Dioxide BUN Glucose POC Glucose 299 H 221 H 197 H 03/15/19 03/15/19 03/15/19 11:55 16:33 21:21 RDW [place] % (Auto) D-Dimer Chloride Carbon Dioxide BUN Glucose POC Glucose 243 H 218 H 156 H 03/16/19 03/16/19 03/16/19 08:02 12:56 16:41 RDW [place] % (Auto) D-Dimer Chloride Carbon Dioxide BUN Glucose POC Glucose 147 H 218 H 146 H 03/16/19 03/17/19 03/17/19 21:11 12:14 15:42 RDW [place] % (Auto) D-Dimer Chloride Carbon Dioxide BUN Glucose POC Glucose 216 H 232 H 183 H 03/17/19 03/18/19 03/18/19 18:09 08:15 11:48 RDW [place] % (Auto) D-Dimer Chloride 97.8 L Carbon Dioxide 31 H BUN Glucose 123 H POC Glucose 110 H 230 H 03/18/19 03/18/19 16:20 21:21 RDW [place] % (Auto) D-Dimer Chloride Carbon Dioxide BUN Glucose POC Glucose 136 H 159 H
[2019-03-19] MEDS: GLUCOPHAGE XR PO SCH ×2 (09:37→16:33)
[2019-03-19] MEDS: COREG PO SCH ×2 (09:37→21:50)
[2019-03-19] MEDS: IMDUR PO SCH (09:37)
[2019-03-19] MEDS: LOVENOX SUB-Q SCH (09:37)
[2019-03-19] MEDS: PEPCID PO SCH ×2 (09:37→21:50)
[2019-03-19] MEDS: HALFPRIN EC PO SCH (09:37)
[2019-03-19] MEDS: HCTZ PO SCH (09:37)
[2019-03-19] MEDS: GLUCOTROL PO SCH ×2 (09:38→16:34)
[2019-03-19] MEDS: DIOVAN PO SCH (09:38)
[2019-03-19] MEDS: PLAVIX PO SCH (09:38)
[2019-03-19] MEDS: CITRACAL D 315MG-250 UNITS PO SCH ×2 (09:38→21:48)
--- NOTE | 2019-03-19 11:14 | Progress Note ---
Assessment and Plan Currently stable cardiac status. Brain MRI with NAF. Pt may discharge home from cardiology standpoint. Recommend follow up in our office with Dr. Clark within 1-2 weeks of hospital discharge ([phone] The patient has been seen in conjunction with Dr. Choe who agrees with the assessment and plan of care. - Patient Problems (1) Vertigo Current Visit: Yes Status: Acute (2) Chest pain Current Visit: Yes Status: Resolved (3) CAD (coronary artery disease) Current Visit: Yes Status: Chronic Qualifiers: Coronary Disease-Associated Artery/Lesion type: [place] artery (4) History of coronary artery stent placement Current Visit: Yes Status: Chronic (5) Hypertension Current Visit: Yes Status: Chronic Qualifiers: Hypertension type: essential hypertension Qualified Code(s): I10 - Essential (primary) hypertension (6) Diabetes mellitus, type 2 Current Visit: Yes Status: Chronic Qualifiers: Diabetes mellitus fdc insulin use: without fdc use Diabetes mellitus complication status: without complication Qualified Code(s): E11.9 - Type 2 diabetes mellitus without complications Subjective Date of service: 03/19/19 Principal diagnosis: Vertigo, CP, CAD, s/p recent PCI, HTN, DM Interval history: pt resting in bed, no current cardiac complaints. c/o vertigo. BPs improved. in SR on telemetry. Objective Last Vital Signs Temp 97.7 F 03/19/19 08:35 Pulse 68 03/19/19 08:34 Resp 18 03/19/19 08:34 BP 155/76 03/19/19 08:34 Pulse Ox 94 03/19/19 08:34 - Physical Examination General: No Apparent Distress HEENT: Positive: EOMI, Normocephaly, Mucus Membranes Moist Neck: Positive: neck supple, trachea midline Cardiac: Positive: Reg Rate and Rhythm, S1/S2 Lungs: Positive: clear to auscultation Neuro: Positive: Grossly Intact Abdomen: Positive: Soft, Active Bowel Sounds. Negative: Tender Skin: Positive: Clear. Negative: Rash Musculoskeletal: Normal Range of Motion Extremities: Absent: edema - Imaging and Cardiology EKG: image reviewed Echo: report reviewed ( 03/11/2019 showed EF 55-60%, mild to mod LVH, impaired relaxation, mild TR. ) Cardiac cath: report reviewed ([facility] 03/[address] 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 ) - EKG Sinus rhythms and dysrhythmias: sinus rhythm
--- NOTE | 2019-03-19 14:07 | Discharge Summary ---
Providers - Providers Date of Admission: 03/15/19 15:55 Date of discharge: 03/19/19 Attending physician: JOON BARTLETT 03/14/19 19:26 Consult to Physician [CONS] Stat Comment: Consulting Provider: GIULIANO CERVANTES Physician Instructions: Reason For Exam: chest pain 03/15/19 16:29 Physical Therapy Evaluation and Treat [CONS] Routine Comment: Reason For Exam: placement 03/17/19 10:25 Consult to Physician [CONS] Routine Comment: Consulting Provider: ERICK OLSON Physician Instructions: Reason For Exam: dizziness Primary care physician: RN TRANSPLANT Hospitalization Condition: Stable Pertinent studies: MRI --Negative CT Head --chronic ischemic changes CTA chest--No acute findings Hospital course: 83-year-old female discharged a day before following admission for chest pain in which she underwent cardiac catheterization by Dr Clark and an RCA stent placement. Patient returns next day with what she reports is the same intermittent chest pain and headache, dizziness. She was admitted, evaluated by cardiology, Neurology. She was continued on Aspirin, Plavix, statin, coreg, Imdur for CAD. Patient had dizziness, CT head unremarkaable. MRI Brain ordered not yet done. Patient still c/o dizinness with difficulty walking. Likely dc home if MRI neg. May need further input from neurology prior to discharge. Recurrent chest pain Patient had a recent RCA stent placed reconsulted cardiologym, and she was evaluated Serial Troponins neg CTA chest unremarkable CAD (coronary artery disease) s/p recent PCI of RCA on 03/12 ECG with NAF, Byron negative for AMI. Echo done 03/11/2019 showed EF 55-60%, mild to mod LVH, impaired relaxation, mild TR. Cont home ASA, plavix, statin, coreg, valsartan, Imdur. Diabetes mellitus, type 2 COnt SSI coverage Dizziness,headache. CT head unremarkable. Neurology followinhg MRI Brain --Done 03/18/19--No acute findings F/u with ENT Dr Vincent-tel number given HTN (hypertension) COnt antihypertensives Dyslipidemia Cont statins GERD (gastroesophageal reflux disease) Cont PPIs Hypothyroidism Cont Synthyroid Physical debility, ordered PT eval DVT prophylaxis On Lovenox and GI prophylaxis Disposition: DC-01 TO HOME OR SELFCARE Core Measure Documentation - Palliative Care Palliative Care/ Comfort Measures: Not Applicable - Core Measures Any of the following diagnoses?: none Exam - Constitutional Vitals: Temp Pulse Resp BP Pulse Ox 98.2 F 77 18 126/69 95 03/19/19 12:00 03/19/19 11:59 03/19/19 11:59 03/19/19 11:59 03/19/19 11:59 General appearance: Present: no acute distress, well-nourished - EENT Eyes: Present: PERRL ENT: hearing intact, clear oral mucosa - Neck Neck: Present: supple, normal ROM - Respiratory Respiratory effort: normal Respiratory: bilateral: CTA - Cardiovascular Heart rate: 78 Rhythm: regular Heart Sounds: Present: S1 & S2. Absent: rub, click - Extremities Extremities: no ischemia, pulses intact, pulses symmetrical, No edema Peripheral Pulses: within normal limits - Abdominal General gastrointestinal: Present: soft, non-tender, non-distended, normal bowel sounds Female genitourinary: Present: normal - Rectal Rectal Exam: deferred - Integumentary Integumentary: Present: clear, warm, dry - Musculoskeletal Musculoskeletal: gait normal, strength equal bilaterally - Psychiatric Psychiatric: appropriate mood/affect, intact judgment & insight - Neurologic Neurologic: CNII-XII intact, moves all extremities - Allied Health Allied health notes reviewed: nursing, case management Plan Activity: no restrictions Diet: low fat, low cholesterol, low salt Follow up with: PRIMARY VONNIE, [Primary Care Provider] - 3-5 Days CHEVY HERNANDEZ MD [Staff Physician] - 7 Days HALEIGH CLARK MD [Staff Physician] - 7 Days
[2019-03-19] MEDS: RESTORIL PO SCH (21:50)
[2019-03-19] MEDS: PRAVACHOL PO SCH (21:50)
[2019-03-20] MEDS: SYNTHROID PO SCH (05:09)
[2019-03-20] MEDS: TESSALON PERLES PO SCH ×2 (05:10→11:13)
[2019-03-20] MEDS: HumaLOG SUB-Q SCH (07:49)
--- NOTE | 2019-03-20 08:41 | Progress Note ---
Assessment and Plan 83-year-old female discharged a day before following admission for chest pain in which she underwent cardiac catheterization by Dr Clark and an RCA stent placement. Patient returns next day with what she reports is the same intermittent chest pain and headache, dizziness. She was admitted, evaluated by cardiology, Neurology. She was continued on Aspirin, Plavix, statin, coreg, Imdur for CAD. Patient had dizziness, CT head unremarkaable. MRI Brain ordered not yet done. Patient still c/o dizinness with difficulty walking. Likely dc home if MRI neg. May need further input from neurology prior to discharge. Recurrent chest pain Patient had a recent RCA stent placed reconsulted cardiologym, and she was evaluated Serial Troponins neg CTA chest unremarkable CAD (coronary artery disease) s/p recent PCI of RCA on 03/12 ECG with NAF, Byron negative for AMI. Echo done 03/11/2019 showed EF 55-60%, mild to mod LVH, impaired relaxation, mild TR. Cont home ASA, plavix, statin, coreg, valsartan, Imdur. Diabetes mellitus, type 2 COnt SSI coverage Dizziness,headache. CT head unremarkable. Neurology followinhg MRI -Normal HTN (hypertension) COnt antihypertensives Dyslipidemia Cont statins GERD (gastroesophageal reflux disease) Cont PPIs Hypothyroidism Cont Synthyroid Physical debility, ordered PT eval DVT prophylaxis On Lovenox and GI prophylaxis Dispo Discharge today Subjective Date of service: 03/19/19 Principal diagnosis: Vertigo, CP, CAD, s/p recent PCI, HTN, DM Interval history: No chest pain or vertigo Objective - Constitutional Vitals: Vital Signs - 12hr 03/19/19 03/19/19 03/19/19 21:50 21:51 23:27 Temperature 97.7 F 97.4 F L Pulse Rate 71 71 79 Respiratory 18 12 Rate Blood Pressure 158/73 135/70 Blood Pressure 158/73 [Left] O2 Sat by Pulse 94 94 Oximetry 03/20/19 04:03 Temperature 98.0 F Pulse Rate 71 Respiratory 12 Rate Blood Pressure 137/71 Blood Pressure [Left] O2 Sat by Pulse 97 Oximetry General appearance: Present: no acute distress, well-nourished - EENT Eyes: PERRL, EOM intact ENT: hearing intact, clear oral mucosa Ears: bilateral: normal - Neck Neck: supple, normal ROM - Respiratory Respiratory effort: normal Respiratory: bilateral: CTA - Breasts Breasts: normal - Cardiovascular Rhythm: regular Heart Sounds: Present: S1 & S2. Absent: gallop, rub Extremities: no ischemia, pulses intact, No edema, normal color, Full ROM - Gastrointestinal General gastrointestinal: Present: soft, non-tender, non-distended, normal bowel sounds - Genitourinary Female genitourinary: normal - Integumentary Integumentary: clear, warm, dry - Musculoskeletal Musculoskeletal: 1, strength equal bilaterally - Neurologic Neurologic: moves all extremities - Psychiatric Psychiatric: memory intact, appropriate mood/affect, intact judgment & insight - Allied health notes Allied health notes reviewed: nursing, case management - Labs CBC & Chem 7: 03/14/19 18:15 03/17/19 18:09 Labs: Abnormal lab results 03/19/19 03/19/19 03/19/19 Range/Units 11:37 16:15 17:29 POC Glucose 273 H 51 L 126 H (70-105)
--- NOTE | 2019-03-20 08:43 | Discharge Summary ---
Providers - Providers Date of Admission: 03/15/19 15:55 Date of discharge: 03/20/19 Attending physician: JOON BARTLETT 03/14/19 19:26 Consult to Physician [CONS] Stat Comment: Consulting Provider: GIULIANO CERVANTES Physician Instructions: Reason For Exam: chest pain 03/15/19 16:29 Physical Therapy Evaluation and Treat [CONS] Routine Comment: Reason For Exam: placement 03/17/19 10:25 Consult to Physician [CONS] Routine Comment: Consulting Provider: ERICK OLSON Physician Instructions: Reason For Exam: dizziness Primary care physician: SHAMPOOER Hospitalization Condition: Stable Hospital course: 83-year-old female discharged a day before following admission for chest pain in which she underwent cardiac catheterization by Dr Clark and an RCA stent placement. Patient returns next day with what she reports is the same intermittent chest pain and headache, dizziness. She was admitted, evaluated by cardiology, Neurology. She was continued on Aspirin, Plavix, statin, coreg, Imdur for CAD. Patient had dizziness, CT head unremarkaable. MRI Brain ordered not yet done. Patient still c/o dizinness with difficulty walking. Likely dc home if MRI neg. May need further input from neurology prior to discharge. Recurrent chest pain Patient had a recent RCA stent placed reconsulted cardiologym, and she was evaluated Serial Troponins neg CTA chest unremarkable CAD (coronary artery disease) s/p recent PCI of RCA on 03/12 ECG with NAF, Byron negative for AMI. Echo done 03/11/2019 showed EF 55-60%, mild to mod LVH, impaired relaxation, mild TR. Cont home ASA, plavix, statin, coreg, valsartan, Imdur. Diabetes mellitus, type 2 COnt SSI coverage Dizziness,headache. CT head unremarkable. Neurology followinhg MRI Brain --Done 03/18/19--No acute findings F/u with ENT Dr Vincent-tel number given HTN (hypertension) COnt antihypertensives Dyslipidemia Cont statins GERD (gastroesophageal reflux disease) Cont PPIs Hypothyroidism Cont Synthyroid Physical debility, ordered PT eval DVT prophylaxis On Lovenox and GI prophylaxis Disposition: DC-01 TO HOME OR SELFCARE Disposition: DC-01 TO HOME OR SELFCARE Core Measure Documentation - Palliative Care Palliative Care/ Comfort Measures: Not Applicable - Core Measures Any of the following diagnoses?: none Exam - Constitutional Vitals: Temp Pulse Resp BP Pulse Ox 98.0 F 71 12 137/71 97 03/20/19 04:03 03/20/19 04:03 03/20/19 04:03 03/20/19 04:03 03/20/19 04:03 General appearance: Present: no acute distress, well-nourished - EENT Eyes: Present: PERRL ENT: hearing intact, clear oral mucosa - Neck Neck: Present: supple, normal ROM - Respiratory Respiratory effort: normal Respiratory: bilateral: CTA - Cardiovascular Heart rate: 78 Rhythm: regular Heart Sounds: Present: S1 & S2. Absent: rub, click - Extremities Extremities: no ischemia, pulses intact, pulses symmetrical, No edema Peripheral Pulses: within normal limits - Abdominal General gastrointestinal: Present: soft, non-tender, non-distended, normal bowel sounds Female genitourinary: Present: normal - Rectal Rectal Exam: deferred - Integumentary Integumentary: Present: clear, warm, dry - Musculoskeletal Musculoskeletal: gait normal, strength equal bilaterally - Psychiatric Psychiatric: appropriate mood/affect, intact judgment & insight - Neurologic Neurologic: CNII-XII intact, moves all extremities Plan Activity: no restrictions Diet: low fat, low cholesterol, low salt Follow up with: CHEVY HERNANDEZ MD [Staff Physician] - 7 Days PRIMARY CARE, [Primary Care Provider] - 3-5 Days HALEIGH CLARK MD [Staff Physician] - 7 Days Prescriptions: hydrALAZINE [Apresoline TAB] 100 mg PO BID #60 tab Aspirin EC [Aspirin Enteric Coated TAB] 81 mg PO DAILY #100 tablet Calcium Citrate/Vitamin D3 [Citracal-Vit D3 200 mg-250 Tab] 2 each PO BID #120 tablet Carvedilol [Coreg] 12.5 mg PO BID 60 Days #60 tablet Valsartan [Diovan] 160 mg PO QDAY #30 tablet Butalb/Acetamin/Caff 50-325-40 [Fioricet] 1 tab PO Q4H PRN #20 tablet PRN Reason: Headache metFORMIN XR [Glucophage XR] 500 mg PO QDAY #30 tablet Lispro Insulin [Humalog] 5 unit SUB-Q ACHS #5 pen ISOSORBIDE MONOnitrate [Imdur ER] 30 mg PO QDAY 30 Days #30 tablet Insulin Glargine [Lantus VIAL] 25 units SUB-Q QAMDIAB #5 pen Famotidine [Pepcid] 20 mg PO BID #60 tablet Clopidogrel [Plavix] 75 mg PO QDAY 30 Days #30 tablet Levothyroxine [Synthroid] 50 mcg PO QAM #30 tablet Temazepam 30 mg PO QHS #30 capsule Simvastatin [Zocor TAB] 40 mg PO QHS #30 tablet
[2019-03-20] MEDS: GLUCOPHAGE XR PO SCH (08:44)
[2019-03-20] MEDS: GLUCOTROL PO SCH (08:44)
[2019-03-20] MEDS: LANTUS SUB-Q SCH (08:48)
[2019-03-20 09:24] VITALS: BP 156/75
[2019-03-20] MEDS: CITRACAL D 315MG-250 UNITS PO SCH (09:25)
[2019-03-20] MEDS: HALFPRIN EC PO SCH (09:25)
[2019-03-20] MEDS: PEPCID PO SCH (09:25)
[2019-03-20] MEDS: PLAVIX PO SCH (09:25)
[2019-03-20] MEDS: IMDUR PO SCH (09:26)
[2019-03-20] MEDS: DIOVAN PO SCH (09:26)
[2019-03-20] MEDS: HCTZ PO SCH (09:26)
[2019-03-20] MEDS: LOVENOX SUB-Q SCH (09:27)
[2019-03-20] MEDS: COREG PO SCH (09:29)
== END 2019-03-20 11:00 | disposition home or self-care (01) | DRG 303 ==
LOC: ED 17:15 → 4A 20:24 → OBSVTOIN 03-15 15:55
PROVIDERS: ADMIT Internal Medicine; ATTEND Internal Medicine
DX: I25.110 Atherosclerotic heart disease of native coronary artery with unstable angina pectoris (principal); R42 Dizziness and giddiness; I10 Essential (primary) hypertension; E78.5 Hyperlipidemia, unspecified; K21.9 Gastro-esophageal reflux disease without esophagitis; E89.0 Postprocedural hypothyroidism; E11.65 Type 2 diabetes mellitus with hyperglycemia; E78.00 Pure hypercholesterolemia, unspecified; Z88.5 Allergy status to narcotic agent; Z79.899 Other long term (current) drug therapy; Z79.84 Long term (current) use of oral hypoglycemic drugs; Z79.82 Long term (current) use of aspirin
CPT/HCPCS: 36415; 70450; 70551; 71045; 71275; 80048; 82962; 84439; 84443; 84484; 85025; 85379; 85610; 85730; 86850; 86900; 86901; 93005; 93010; 95819; G0378; A9270-GY; J1650; J1815; Q9967

== ENCOUNTER 2019-04-15 07:35 | Emergency (ER) | payer MEDICARE ==
[2019-04-15 08:16] LABS: Basophils % (Auto) 0.4 % (0.0-1.8); Eosinophils # (Auto) 0.1 K/mm3 (0.0-0.4); Eosinophils % (Auto) 2.1 % (0.0-4.3); Hematocrit 38.8 % (30.3-42.9); Lymphocytes # (Auto) 2.5 K/mm3 (1.2-5.4); Lymphocytes % (Auto) 44.9 % (13.4-35.0); Mean Corpuscular HGB Conc 34 % (30-34); Mean Corpuscular Volume 89 fl (79-97); Monocytes # (Auto) 0.4 K/mm3 (0.0-0.8); Monocytes % (Auto) 7.8 % (0.0-7.3); Platelet Count 217 K/mm3 (140-440); Red Blood Count 4.37 M/mm3 (3.65-5.03); Red Cell Distribution Width 15.5 % (13.2-15.2)
[2019-04-15] MEDS ORDERED: ULTRAM PO ONE (08:16)
[2019-04-15] MEDS ORDERED: LOPRESSOR IV ONE (08:16)
[2019-04-15] MEDS ORDERED: APRESOLINE IV ONE ×2 (08:22→10:36)
--- NOTE | 2019-04-15 08:22 | Emergency Department Report ---
HPI - General Chief Complaint: Chest Pain Time Seen by Provider: 04/15/19 08:00 - HPI HPI: 84-year-old female presents to the emergency department with 2 complaints. First, the patient has some midsternal nonradiating chest pain that has been going on for the past 4-5 days intermittently. She says that it is a "pinching and pulling sensation." The patient has history of hypertension, diabetes, coronary artery disease with cardiac stents, hypothyroidism, elevated cholesterol. The patient was here in February and had a cardiac catheterization in which 2 stents were placed in the mid to distal RCA. Her web ui developer is Dr. Clark. Secondly, the patient complains of some right-sided head and neck pain that has also been going on for the past few days. She had this a few weeks ago as well and was seen here for a workup that included an MRI. She says that when this pain occurs that she gets generalized weakness. She denies any vision changes, slurred speech or any focal deficits. Her primary care physician is Dr. Levy. ED Past Medical Hx - Past Medical History Hx Hypertension: Yes Hx CVA: No Hx Heart Attack/AMI: No Hx Congestive Heart Failure: No Hx Diabetes: Yes Hx Deep Vein Thrombosis: No Hx Pulmonary Embolism: No Hx GERD: No Hx Liver Disease: No Hx Renal Disease: No Hx Sickle Cell Disease: No Hx Arthritis: Yes Hx Headaches / Migraines: No Hx Seizures: No Hx Kidney Stones: No Hx Psychiatric Treatment: No Hx Asthma: No Hx COPD: No Hx Dementia: No Hx HIV: No Additional medical history: cholesterol, Thyroid problems - Surgical History Hx Coronary Stent: Yes Hx Open Heart Surgery: No Hx Pacemaker: No Hx Internal Defibrillator: No Hx Cholecystectomy: No Hx Appendectomy: No Hx Breast Surgery: No Additional Surgical History: r. knee, and thyroid - Social History Smoking Status: Never Smoker Substance Use Type: None - Medications Home Medications: Home Medications Medication Instructions Recorded Confirmed Last Taken Type Multivit-Min/Iron/Folic/Lutein 1 each PO DAILY 03/12/19 03/14/19 Unknown History [Multivitamin Women 50 Plus Tab] Lisinopril [Zestril TAB] 10 mg PO QDAY #30 tablet 03/13/19 03/14/19 Unknown Rx Aspirin EC 81 mg PO DAILY #100 tablet 03/19/19 Unknown Rx Butalb/Acetamin/Caff 50-325-40 1 tab PO Q4H PRN #20 tablet 03/19/19 Unknown Rx [Fioricet 50-325-40] Calcium Citrate/Vitamin D3 2 each PO BID #120 tablet 03/19/19 Unknown Rx [Citracal-Vit D3 200 mg-250 Tab] Carvedilol [Coreg] 12.5 mg PO BID 60 Days #60 tablet 03/19/19 Unknown Rx Clopidogrel [Plavix] 75 mg PO QDAY 30 Days #30 tablet 03/19/19 Unknown Rx Famotidine [Pepcid] 20 mg PO BID #60 tablet 03/19/19 Unknown Rx ISOSORBIDE MONOnitrate [Imdur ER] 30 mg PO QDAY 30 Days #30 tablet 03/19/19 Unknown Rx Insulin Glargine [Lantus VIAL] 25 units SUB-Q QAMDIAB #5 pen 03/19/19 Unknown Rx Levothyroxine [Synthroid] 50 mcg PO QAM #30 tablet 03/19/19 Unknown Rx Lispro Insulin [HumaLOG] 5 unit SUB-Q ACHS #5 pen 03/19/19 Unknown Rx Simvastatin [Zocor TAB] 40 mg PO QHS #30 tablet 03/19/19 Unknown Rx Temazepam 30 mg PO QHS #30 capsule 03/19/19 Unknown Rx Valsartan [Diovan] 160 mg PO QDAY #30 tablet 03/19/19 Unknown Rx hydrALAZINE [Apresoline TAB] 100 mg PO BID #60 tab 03/19/19 Unknown Rx metFORMIN XR [Glucophage XR] 500 mg PO QDAY #30 tablet 03/19/19 Unknown Rx traMADol [Ultram] 50 mg PO Q6HR PRN #12 tablet 03/27/19 Unknown Rx HYDROcodone/APAP 5-325 [[place] 1 each PO Q6HR PRN #12 tablet 04/15/19 Unknown Rx 5/325] ED Review of Systems ROS: Stated complaint: CHEST/NECK PAIN Other details as noted in HPI Constitutional: weakness. denies: chills, fever Eyes: denies: eye pain, vision change ENT: denies: ear pain, throat pain Respiratory: denies: cough, shortness of breath Cardiovascular: chest pain. denies: palpitations Gastrointestinal: denies: abdominal pain, vomiting Genitourinary: denies: dysuria, discharge Musculoskeletal: other (neck pain). denies: back pain Skin: denies: rash, lesions Neurological: headache. denies: numbness, confusion Physical Exam - Physical Exam Vital Signs: Vital Signs 04/15/19 07:47 Temperature 98.6 F Pulse Rate 76 Respiratory 16 Rate Blood Pressure 171/78 Physical Exam: GENERAL: The patient is well-developed well-nourished. HENT: Normocephalic. Atraumatic. Patient has moist mucous membranes. EYES: Extraocular motions are intact. Pupils equal reactive to light bilaterally. NECK: Supple. Trachea is midline. No carotid bruits auscultated. CHEST/LUNGS: Clear to auscultation. There is no respiratory distress noted. HEART/CARDIOVASCULAR: Regular. There is no tachycardia. There is no murmur. ABDOMEN: Abdomen is soft, nontender. Patient has normal bowel sounds. There is no abdominal distention. SKIN: Skin is warm and dry. NEURO: The patient is awake, alert, and oriented. The patient is cooperative. The patient has no focal neurologic deficits. The patient has normal speech. MUSCULOSKELETAL: There is no tenderness or deformity. There is no evidence of acute injury. ED Course Vital Signs 04/15/19 07:47 Temperature 98.6 F Pulse Rate 76 Respiratory 16 Rate Blood Pressure 171/78 - Consultations Consultation #1: 04/15/19 14:31 I spoke with the patient's web ui developer, Dr. Clark, who says that the patient has been evaluated multiple times for this chronic or persistent chest pain and he does not feel that it is cardiac in etiology and that the patient can be sent home from the standpoint of her chest pain. ED Medical Decision Making - Lab Data Result diagrams: 04/15/19 07:59 04/15/19 07:59 - EKG Data -: EKG Interpreted by Me EKG shows normal: sinus rhythm, axis (left axis deviation), intervals, QRS complexes (Q waves to the septal leads), ST-T waves (there are some flattening of the T waves) Rate: normal - EKG Data When compared to previous EKG there are: no significant change Interpretation: unchanged when compared t (03/14/19) - Radiology Data Radiology results: report reviewed CT HEAD WITHOUT CONTRAST: HISTORY: Right sided headache with weakness. TECHNIQUE: Sequential CT images without contrast. FINDINGS: Images obtained show bilateral prominence of the sulci and ventricles. There are no abnormal intra- or extra-axial blood or fluid collections. There are no focal masses or evidence of mass effect. The espinal white matter differentiation appears within normal limits. Regions of periventricular decreased attenuation are consistent with microangiopathic ischemic disease. The posterior fossa structures including the fourth ventricle, cerebellum, and brainstem appear normal. IMPRESSION: Evidence of atrophy and microangiopathic ischemic disease. No acute intracranial process noted. No significant change since 03/16/19. CTA HEAD: HISTORY: Headache, neck pain, weakness. TECHNIQUE: Helical CT images after IV contrast with 0.625mm reformations. Sagittal and coronal reformats. Rotational MIP images. 3D volume rendering technique. FINDINGS: The arterial structures of the anterior and posterior circulations are patent throughout. No evidence for stenosis, occlusion or aneurysm. IMPRESSION: Unremarkable CTA head. CTA NECK: HISTORY: Headache, neck pain, weakness. TECHNIQUE: Helical CT following IV contrast. Sagittal and coronal reformatted images. 3D volume rendering technique. Stenosis was calculated using NASCET criteria with the distal ICA being standard diameter. FINDINGS: The visualized aortic arch, innominate artery and proximal bilateral subclavian arteries are widely patent with less than 20% stenosis. Within the right carotid system: There are moderate calcific plaques at the carotid bifurcation but less than 30% stenosis. Within the left carotid system: There are moderate calcific plaques at the carotid bifurcation but less than 30% stenosis. The cervical vertebral arteries are patent with less than 20% stenosis. IMPRESSION: No hemodynamically significant stenosis or large vessel occlusion. Moderate atherosclerotic disease at both carotid bifurcations. Transcribed By: TTR PERFUSION LUNG SCAN: History: Chest pain, elevated d-dimer. After injection of Technetium 99m macroaggregated albumin gamma camera imaging of the lungs in multiple projections demonstrates normal pulmonary contours with a homogeneous distribution of activity. No focal areas of perfusion deficiency are identified. IMPRESSION: Normal study. Transcribed By: TTR Dictated By: RUI CALHOUN JR, MD Electronically Authenticated By: RUI CALHOUN JR, MD Signed Date/Time: 04/15/19 1135 - Medical Decision Making This 84-year-old female presents to the emergency department with 2 complaints. Regarding her chest pain, the EKG does not show any signs of ST elevation GA and is unchanged from previous. Chest x-ray did not show any pleural effusions, pneumothorax, pneumonia, focal consolidation, or any other acute process. She had a slightly elevated and equivocal d-dimer but a perfusion scan was done that was a normal study. She had negative troponins 2. I spoke with the patient's web ui developer who says that her chest pain is not cardiac in etiology and that the patient can be sent home for outpatient follow-up in regards to her chest pain. Secondly, the patient complains of some right-sided neck pain. She has been seen about this in the past. No focal, motor or sensory deficits in her cranial nerves are intact. No numbness or paresthesias. A CT of the head was done that does not show any bleed, shift, mass, ischemia, or any other acute process. CT angiography of the head and neck was done that also did not show any signs of any thrombus, aneurysm, dissection, or any other acute process. Patient presented with some elevated blood pressure but it came down to a more reasonable level with some doses of hydralazine and the patient had not taken her blood pressure medications today. She was given some pain medication with some improvement of her symptoms. The patient will be discharged home to follow up with her primary care physician and web ui developer. She has been given referrals for orthopedist regarding her neck pain which I suspect may be musculoskeletal. The patient will return to the ER with any worsening of her symptoms or any acute distress. With the patient and the patient's daughter looking for a pain medication that was more effective than the previous tramadol that she had. She has an allergy to codeine but did not have any reaction to the low-dose morphine that she was given. I discussed my concerns about giving hydrocodone when she has a codeine allergy but they say that this was a long time ago and her only symptoms was some nonspecific dizziness. She will be given a very small amount of pain medic ation and a prescription and the patient's daughter will monitor her which she is taking it and if there is any signs of any side effects or adverse reactions, they will stop the medication. - Differential Diagnosis GA, PE, costochondritis,, GERD Critical Care Time: No Critical care attestation.: If time is entered above; I have spent that time in minutes in the direct care of this critically ill patient, excluding procedure time. ED Disposition Clinical Impression: Neck pain, Atypical chest pain Hypertension Qualifiers: Hypertension type: essential hypertension Qualified Code(s): I10 - Essential (primary) hypertension Disposition: DC-01 TO HOME OR SELFCARE Is pt being admited?: No Condition: Stable Instructions: Chest Pain (ED), Musculoskeletal Pain (ED), Hypertension (ED) Additional Instructions: Please follow-up with your primary care physician in the next few days. It is also recommended to follow up with your web ui developer. I am giving you a referral for 2 different orthopedic groups to follow up regarding your neck pain. Return to the emergency Department with any worsening of your symptoms or any acute distress. You have been prescribed a medication that is sedating and therefore should not be taken prior to driving, working, and responsible for children and in no way should be mixed with alcohol of any quantity. Prescriptions: HYDROcodone/APAP 5-325 [[place] 5/325] 1 each PO Q6HR PRN #12 tablet PRN Reason: Pain Referrals: CHI LEVY MD [Staff Physician] - 2-3 Days HALEIGH CLARK MD [Staff Physician] - 2-3 Days KRISTINA COHEN MD [Staff Physician] - 2-3 Days [facility] [Provider Group] - 2-3 Days Time of Disposition: 12:24
[2019-04-15 08:27] LABS: INR 0.97 (0.87-1.13)
[2019-04-15 08:28] LABS: Partial Thromboplastin Time 29.5 Sec. (24.2-36.6)
[2019-04-15 08:34] LABS: Alanine Aminotransferase 12 units/L (7-56); Albumin 4.2 g/dL (3.9-5); BUN/Creatinine Ratio 18; Blood Urea Nitrogen 14 mg/dL (7-17); Calcium 9.2 mg/dL (8.4-10.2); Hemolysis Index 7
--- NOTE | 2019-04-15 08:58 | XRay Report ---
AP CHEST: HISTORY: chest pain. Compared to 02/22/19. There is poor inspiration. A subtle hazy opacity has developed in the left lower lobe which could represent atelectatic changes or early infiltrate. The remainder of the lungs are clear. Borderline to mild cardiomegaly is stable. There is advanced arthritic changes in both shoulders, left greater than right. IMPRESSION: Borderline to mild cardiomegaly, stable. Subtle left lower lobe opacity as described. Please correlate with the patient's clinical presentation.
--- NOTE | 2019-04-15 09:22 | Cat Scan Report ---
CT HEAD WITHOUT CONTRAST: HISTORY: Right sided headache with weakness. TECHNIQUE: Sequential CT images without contrast. FINDINGS: Images obtained show bilateral prominence of the sulci and ventricles. There are no abnormal intra- or extra-axial blood or fluid collections. There are no focal masses or evidence of mass effect. The espinal white matter differentiation appears within normal limits. Regions of periventricular decreased attenuation are consistent with microangiopathic ischemic disease. The posterior fossa structures including the fourth ventricle, cerebellum, and brainstem appear normal. IMPRESSION: Evidence of atrophy and microangiopathic ischemic disease. No acute intracranial process noted. No significant change since 03/16/19.
--- NOTE | 2019-04-15 10:28 | Cat Scan Report ---
CTA HEAD: HISTORY: Headache, neck pain, weakness. TECHNIQUE: Helical CT images after IV contrast with 0.625mm reformations. Sagittal and coronal reformats. Rotational MIP images. 3D volume rendering technique. FINDINGS: The arterial structures of the anterior and posterior circulations are patent throughout. No evidence for stenosis, occlusion or aneurysm. IMPRESSION: Unremarkable CTA head.
--- NOTE | 2019-04-15 10:29 | Cat Scan Report ---
CTA NECK: HISTORY: Headache, neck pain, weakness. TECHNIQUE: Helical CT following IV contrast. Sagittal and coronal reformatted images. 3D volume rendering technique. Stenosis was calculated using NASCET criteria with the distal ICA being standard diameter. FINDINGS: The visualized aortic arch, innominate artery and proximal bilateral subclavian arteries are widely patent with less than 20% stenosis. Within the right carotid system: There are moderate calcific plaques at the carotid bifurcation but less than 30% stenosis. Within the left carotid system: There are moderate calcific plaques at the carotid bifurcation but less than 30% stenosis. The cervical vertebral arteries are patent with less than 20% stenosis. IMPRESSION: No hemodynamically significant stenosis or large vessel occlusion. Moderate atherosclerotic disease at both carotid bifurcations.
[2019-04-15] MEDS ORDERED: MORPHINE IV ONE (11:15)
--- NOTE | 2019-04-15 11:40 | Nuclear Medicine Report ---
PERFUSION LUNG SCAN: History: Chest pain, elevated d-dimer. After injection of Technetium 99m macroaggregated albumin gamma camera imaging of the lungs in multiple projections demonstrates normal pulmonary contours with a homogeneous distribution of activity. No focal areas of perfusion deficiency are identified. IMPRESSION: Normal study.
[2019-04-15 12:06] VITALS: BP 160/68
== END 2019-04-15 12:43 | disposition home or self-care (01) ==
LOC: ED 07:35
DX: I10 Essential (primary) hypertension (principal); M54.2 Cervicalgia; R07.89 Other chest pain; E11.9 Type 2 diabetes mellitus without complications; M19.90 Unspecified osteoarthritis, unspecified site; Z95.1 Presence of aortocoronary bypass graft; Z88.6 Allergy status to analgesic agent
CPT/HCPCS: 36415; 70450; 70496; 70498; 71045; 78580; 80053; 84484; 85025; 85379; 85610; 85730; 93005; 93010; 96374; 96375; 96376; 99285; A9540; J0360; J2270; Q9967

== ENCOUNTER 2019-05-01 12:36 | Outpatient (CLI) | payer MEDICARE ==
--- NOTE | 2019-05-01 17:02 | Vascular Lab Report ---
PROCEDURE: VL VENOUS DUPLEX UE LT HISTORY: M79.602 PAIN IN LEFT ARM/M79.89 SWELLING OF LEFT EXTREMITY FINDINGS: Real-time ultrasound of the left arm was performed using grayscale and color Doppler images . These images demonstrate no evidence of deep venous thrombus in the left internal jugular vein, subcl tony vein, brachial vein or axillary vein. No superficial venous thrombus is seen in the cephalic or basilic vein. IMPRESSION: No DVT in left arm This document is electronically signed by Ishan Ruiz MD., May 01 2019 05:00:30 PM ET
== END 2019-05-01 12:37 | disposition home or self-care (01) ==
LOC: VAS 12:36
PROVIDERS: ATTEND Internal Medicine
DX: M79.602 Pain in left arm (principal); M79.89 Other specified soft tissue disorders; E78.00 Pure hypercholesterolemia, unspecified; I10 Essential (primary) hypertension; E03.9 Hypothyroidism, unspecified

== ENCOUNTER 2019-09-09 12:46 | Emergency (ER) | payer MEDICARE ==
[2019-09-09 17:38] LABS: Bilirubin,Urine NEG (Negative); Blood,Urine NEG (Negative); Color,Urine Yellow (Yellow); Protein,Urine <15 mg/dL mg/dL (Negative); Urobilinogen,Urine < 2.0 mg/dL (<2.0)
[2019-09-09] MEDS ORDERED: IBUPROFEN PO ONE (18:03)
--- NOTE | 2019-09-09 19:31 | XRay Report ---
ABDOMEN 1 VIEW(S) INDICATION / CLINICAL INFORMATION: flext flank pain with normal urinalysis. COMPARISON: None available. FINDINGS: TUBES / LINES: None. BOWEL GAS PATTERN/EXTRALUMINAL GAS: No significant abnormality. No pneumatosis or secondary signs of free air. ADDITIONAL FINDINGS: No significant additional findings. IMPRESSION: 1. No acute abnormality. Signer Name: Andrea Romo MD Signed: 09/09/2019 7:27 PM Workstation Name: [id number]
--- NOTE | 2019-09-09 20:11 | Emergency Department Report ---
ED General Adult HPI - General Chief complaint: Urogenital-Female Stated complaint: BACK PAIN Time Seen by Provider: 09/09/19 14:04 Source: patient Mode of arrival: Ambulatory Limitations: No Limitations - History of Present Illness Initial comments: Patient is a 84-year-old female who is complaining of some left back pain for the past 2-3 weeks. Patient states it was a sensation of something is inside of her body. Patient states is worsened slightly over the last 4 days. Patient's discomfort is constant and is located in the left flank. She states there is no dysuria hematuria nausea vomiting or diarrhea. Daughter states she does have dry lips occasionally. Patient has a past medical history of diabetes as well as thyroid issues. Patient denies trauma. Severity scale (0 -10): 8 Associated Symptoms: other (urinary frequency') - Related Data Home Medications Medication Instructions Recorded Confirmed Last Taken Multivit-Min/Iron/Folic/Lutein 1 each PO DAILY 03/12/19 03/14/19 Unknown [Multivitamin Women 50 Plus Tab] Previous Rx's Medication Instructions Recorded Last Taken Type Lisinopril [Zestril TAB] 10 mg PO QDAY #30 tablet 03/13/19 Unknown Rx Aspirin EC [Halfprin EC] 81 mg PO DAILY #100 tablet 03/19/19 Unknown Rx Butalb/Acetamin/Caff 50-325-40 1 tab PO Q4H PRN #20 tablet 03/19/19 Unknown Rx [Fioricet 50-325-40] Calcium Citrate/Vitamin D3 2 each PO BID #120 tablet 03/19/19 Unknown Rx [Citracal-Vit D3 200 mg-250 Tab] Carvedilol [Coreg] 12.5 mg PO BID 60 Days #60 tablet 03/19/19 Unknown Rx Clopidogrel [Plavix] 75 mg PO QDAY 30 Days #30 tablet 03/19/19 Unknown Rx Famotidine [Pepcid] 20 mg PO BID #60 tablet 03/19/19 Unknown Rx ISOSORBIDE MONOnitrate [Imdur ER] 30 mg PO QDAY 30 Days #30 tablet 03/19/19 Unknown Rx Insulin Glargine [Lantus VIAL] 25 units SUB-Q QAMDIAB #5 pen 03/19/19 Unknown Rx Levothyroxine [Synthroid] 50 mcg PO QAM #30 tablet 03/19/19 Unknown Rx Lispro Insulin [HumaLOG] 5 unit SUB-Q ACHS #5 pen 03/19/19 Unknown Rx Simvastatin [Zocor TAB] 40 mg PO QHS #30 tablet 03/19/19 Unknown Rx Temazepam 30 mg PO QHS #30 capsule 03/19/19 Unknown Rx Valsartan [Diovan] 160 mg PO QDAY #30 tablet 03/19/19 Unknown Rx hydrALAZINE [Apresoline TAB] 100 mg PO BID #60 tab 03/19/19 Unknown Rx metFORMIN XR [Glucophage XR] 500 mg PO QDAY #30 tablet 03/19/19 Unknown Rx traMADol [Ultram 50 MG tab] 50 mg PO Q6HR PRN #12 tablet 03/27/19 Unknown Rx HYDROcodone/APAP 5-325 [[place] 1 each PO Q6HR PRN #12 tablet 04/15/19 Unknown Rx 5-325 mg TAB] Ibuprofen [Motrin 600 MG tab] 600 mg PO Q8H PRN #20 tablet 09/09/19 Unknown Rx methOCARBAMOL [Robaxin TAB] 500 mg PO Q6H PRN #14 tablet 09/09/19 Unknown Rx Allergies Allergy/AdvReac Type Severity Reaction Status Date / Time codeine AdvReac Dizziness Verified 04/15/19 07:36 ED Review of Systems ROS: Stated complaint: BACK PAIN Other details as noted in HPI Comment: All other systems reviewed and negative ED Past Medical Hx - Past Medical History Previous Medical History?: Yes Hx Hypertension: Yes Hx CVA: No Hx Heart Attack/AMI: No Hx Congestive Heart Failure: No Hx Diabetes: Yes Hx Deep Vein Thrombosis: No Hx Pulmonary Embolism: No Hx GERD: No Hx Liver Disease: No Hx Renal Disease: No Hx of Cancer: No Hx Sickle Cell Disease: No Hx Arthritis: Yes Hx Headaches / Migraines: No Hx Seizures: No Hx Kidney Stones: No Hx Psychiatric Treatment: No Hx Asthma: No Hx COPD: No Hx Dementia: No Hx HIV: No Additional medical history: cholesterol, Thyroid problems - Surgical History Past Surgical History?: Yes Hx Coronary Stent: Yes Hx Open Heart Surgery: No Hx Pacemaker: No Hx Internal Defibrillator: No Hx Cholecystectomy: No Hx Appendectomy: No Hx Breast Surgery: No Additional Surgical History: r. knee, and thyroid - Social History Smoking Status: Never Smoker Substance Use Type: None - Medications Home Medications: Home Medications Medication Instructions Recorded Confirmed Last Taken Type Multivit-Min/Iron/Folic/Lutein 1 each PO DAILY 03/12/19 03/14/19 Unknown History [Multivitamin Women 50 Plus Tab] Lisinopril [Zestril TAB] 10 mg PO QDAY #30 tablet 03/13/19 03/14/19 Unknown Rx Aspirin EC [Halfprin EC] 81 mg PO DAILY #100 tablet 03/19/19 Unknown Rx Butalb/Acetamin/Caff 50-325-40 1 tab PO Q4H PRN #20 tablet 03/19/19 Unknown Rx [Fioricet 50-325-40] Calcium Citrate/Vitamin D3 2 each PO BID #120 tablet 03/19/19 Unknown Rx [Citracal-Vit D3 200 mg-250 Tab] Carvedilol [Coreg] 12.5 mg PO BID 60 Days #60 tablet 03/19/19 Unknown Rx Clopidogrel [Plavix] 75 mg PO QDAY 30 Days #30 tablet 03/19/19 Unknown Rx Famotidine [Pepcid] 20 mg PO BID #60 tablet 03/19/19 Unknown Rx ISOSORBIDE MONOnitrate [Imdur ER] 30 mg PO QDAY 30 Days #30 tablet 03/19/19 Unknown Rx Insulin Glargine [Lantus VIAL] 25 units SUB-Q QAMDIAB #5 pen 03/19/19 Unknown Rx Levothyroxine [Synthroid] 50 mcg PO QAM #30 tablet 03/19/19 Unknown Rx Lispro Insulin [HumaLOG] 5 unit SUB-Q ACHS #5 pen 03/19/19 Unknown Rx Simvastatin [Zocor TAB] 40 mg PO QHS #30 tablet 03/19/19 Unknown Rx Temazepam 30 mg PO QHS #30 capsule 03/19/19 Unknown Rx Valsartan [Diovan] 160 mg PO QDAY #30 tablet 03/19/19 Unknown Rx hydrALAZINE [Apresoline TAB] 100 mg PO BID #60 tab 03/19/19 Unknown Rx metFORMIN XR [Glucophage XR] 500 mg PO QDAY #30 tablet 03/19/19 Unknown Rx traMADol [Ultram 50 MG tab] 50 mg PO Q6HR PRN #12 tablet 03/27/19 Unknown Rx HYDROcodone/APAP 5-325 [[place] 1 each PO Q6HR PRN #12 tablet 04/15/19 Unknown Rx 5-325 mg TAB] Ibuprofen [Motrin 600 MG tab] 600 mg PO Q8H PRN #20 tablet 09/09/19 Unknown Rx methOCARBAMOL [Robaxin TAB] 500 mg PO Q6H PRN #14 tablet 09/09/19 Unknown Rx ED Physical Exam - General Limitations: No Limitations General appearance: alert, in no apparent distress - Head Head exam: Present: atraumatic, normocephalic - Eye Eye exam: Present: normal appearance, PERRL, EOMI - ENT ENT exam: Present: mucous membranes moist - Neck Neck exam: Present: normal inspection - Respiratory Respiratory exam: Present: normal lung sounds bilaterally. Absent: respiratory distress - Cardiovascular Cardiovascular Exam: Present: regular rate, normal rhythm. Absent: systolic murmur, diastolic murmur, rubs, gallop - GI/Abdominal GI/Abdominal exam: Present: soft, normal bowel sounds. Absent: distended, tenderness, guarding, rebound - Extremities Exam Extremities exam: Present: normal inspection - Back Exam Back exam: Present: normal inspection, paraspinal tenderness (patient states she feels some swelling to the left paraspinal area. Patient does have some increased fatty deposits underneath the skin on the left side. It is difficult to ascertain whether there is a distinct lipoma present) - Neurological Exam Neurological exam: Present: alert, oriented X3 - Psychiatric Psychiatric exam: Present: normal affect, normal mood - Skin Skin exam: Present: warm, dry, intact, normal color. Absent: rash ED Course Vital Signs 09/09/19 09/09/19 12:56 18:15 Temperature 98.6 F Pulse Rate 91 H Respiratory 18 20 Rate Blood Pressure 134/62 O2 Sat by Pulse 96 Oximetry ED Medical Decision Making - Lab Data Lab Results 09/09/19 Range/Units 16:25 Urine Color Yellow (Yellow) Urine Turbidity Clear (Clear) Urine pH 5.0 (5.0-7.0) Ur Specific [place] 1.018 (1.003-1.030) Urine Protein <15 mg/dl (Negative) mg/dL Urine Glucose (UA) Neg (Negative) mg/dL Urine Ketones Neg (Negative) mg/dL Urine Blood Neg (Negative) Urine Nitrite Neg (Negative) Urine Bilirubin Neg (Negative) Urine Urobilinogen < 2.0 (<2.0) mg/dL Ur Leukocyte Esterase Neg (Negative) Urine WBC (Auto) 0.0 (0.0-6.0) /HPF Urine RBC (Auto) 4.0 (0.0-6.0) /HPF - Radiology Data KUB WNL non-obstructive process - Medical Decision Making Patient is a 84-year-old female who is presenting with his left flank pain. Urinalysis was negative for infection or hematuria. Regarding the patient's urine and frequency there is no glucose present. X-ray was done to rule out obstructive process. There is no structural process present. Patient does have some increased fullness of the fatty tissue on the left mid back. T here is no discrete lipoma that is palpable however she could have one slightly deeper. Patient will be referred to her primary care physician. Patient also started on a muscle relaxant for generalized back pain. Critical care attestation.: If time is entered above; I have spent that time in minutes in the direct care of this critically ill patient, excluding procedure time. ED Disposition Clinical Impression: Back pain Qualifiers: Back pain location: low back pain Chronicity: acute Back pain laterality: left Sciatica presence: without sciatica Qualified Code(s): M54.5 - Low back pain Lipoma Qualifiers: Lipoma location: trunk Qualified Code(s): D17.1 - Benign lipomatous neoplasm of skin and subcutaneous tissue of trunk Disposition: DC-01 TO HOME OR SELFCARE Is pt being admited?: No Does the pt Need Aspirin: No Condition: Stable Instructions: Back Pain (ED), Lipoma (ED) Referrals: PRIMARY CARE, [Primary Care Provider] - 3-5 Days Time of Disposition: 20:12
[2019-09-09 20:20] VITALS: BP 174/94
== END 2019-09-09 20:20 | disposition home or self-care (01) ==
LOC: ED 12:46
DX: D17.1 Benign lipomatous neoplasm of skin and subcutaneous tissue of trunk (principal); I10 Essential (primary) hypertension; E11.9 Type 2 diabetes mellitus without complications; Z79.4 Long term (current) use of insulin; Z88.5 Allergy status to narcotic agent; Z79.899 Other long term (current) drug therapy; Z98.890 Other specified postprocedural states
CPT/HCPCS: 74018; 81001; 87086

== ENCOUNTER 2020-12-26 08:45 | Inpatient (IN) | payer MEDICAID, MEDICARE ==
[2020-12-26] MEDS ORDERED: ASPIRIN 325 MG TAB PO ONE ×2 (09:18→12:39)
--- NOTE | 2020-12-26 09:28 | Emergency Department Report ---
ED Chest Pain HPI - General Chief Complaint: Chest Pain Stated Complaint: CHEST PAINS Time Seen by Provider: 12/26/20 09:27 Source: patient Mode of arrival: Wheelchair Limitations: No Limitations - History of Present Illness Initial Comments: This is an 85-year-old lady who seems to have reasonable command of the Urdu language. Not withstanding she is a very poor historian. She states that she is here because she had an episode that was initiated by a headache that later was associated with dizziness. She stated that she did not pass out and she did not hurt herself. Initially it seemed like she was trying to say that she fell. However, on requestioning she does not admit that. She states that she had a sharp pain in the chest after that which did not radiate. She is not complaining of chest pain now. She denies cough or any respiratory difficulty. It is yet unknown as to why the patient presented today for evaluation of this event which occurred 2 days ago. She is essentially asymptomatic at the time of my encounter. Patient states that her chest pain was alleviated by drinking water. Upon review of her previous medical record she has referred a symptom complex such as this before. She denies any difficulty in swallowing or getting her food to go down. She does not recall ever stating that she had chest pain that was alleviated by drinking water before. However the records do show that this is the case. The records do indicate that she has a chronic elevated D-dimer. Furthermore, CTA and pulmonary perfusion studies were negative for pulmonary embolism. Last left heart cath apparently did show a distal 70% LAD lesion. She had 2 [id number] stents in the RCA. Medical management has been previously recomm ended by her mechanical product engineer. Previous CT angiogram of the head showed nothing remarkable. CT of the head showed nothing remarkable. I did find an MR study that suggested a possible small old left hemispheric stroke. 2019 CARDS Note: History of Present Illness Consult date: 08/13/19 Requesting physician: RONNA FLORES Consult reason: chest pain, known to you History of present illness: The pt is an 84 YO female with a past medical history of CAD s/p PCI of RCA on 03/12/2019, HTN, HLP, DM, hypothyroidism. She is followed in our office by Dr. Clark. She presented with complaints of chest pain since yesterday. She describes her chest pain as an intermittent, nonexertional, nonradiating, midsternal pain (cannot describe quality) which is sometimes alleviated by drinking cold water. She also c/o some dizziness with positional changes and headache since yesterday. She also c/o lower back pain. She denies any SOB, palpitations, n/v, diaphoresis or syncope. Echo done 03/11/2019 showed EF 55-60%, mild to mod LVH, impaired relaxation, mild TR. LHC 03/[address] Clark showed lt main patent, lad distal 70% systolic bridging prior to lesion (treat medically), lcx patent om1-3 patent, rca mid to distal 90%, pci of rca with sb resolute gavin 3.5 x 15 mm (two stents overlapping) and normal lv function. IM D/C Summary 08/09: 85 YO Female with HTN, HLD, DM, Hypothyroidism, CAD S/P Stent Placement, Obesity Hypoventilation Syndrome, Metabolic Syndrome presents to ED for evaluation. Patient states that she has experienced chronic back pain over the past 6 months with worsening symptoms over the past week. Patient also reports subjective fever, generalized weakness, malaise, body aches, fatigue, and decreased exercise tolerance. Patient transported to [facility] via private vehicle for further care and evaluation of the aforementioned symptoms. Patient seen and evaluated in the emergency department. Lab and imaging studies reviewed. Patient underwent chest x-ray which showed bilateral infiltrates consistent with pneumonia. Patient initiated on coronavirus protocol in the emergency department prior to my evaluation. Patient admitted to medical floor and initiated on pneumonia protocol due to increased risk of decompensation. Patient denies chills, chest pain, palpitations, skin rash, recent ill contacts. Patient uncertain of coronavirus 19 exposure. Prior admission on 08/13/2019 reviewed. All medication listed at time of admission has been reconciled. Advanced care planning conducted in ED. Patient still short of breath (1) Bilateral pneumonia Current Visit: Yes Status: Acute Plan to address problem: Patient to be discharged on oral antibiotics (2) Suspected 2019 novel coronavirus infection Current Visit: Yes Status: Acute Plan to address problem: Coronavirus protocol: Contact precaution, isolation precautions, prone positioning while in bed, supplemental oxygen, coronavirus PCR ordered in the emergency department. Coronavirus negative (3) Diabetes Current Visit: Yes Status: Acute Plan to address problem: Oral hypoglycemics (4) Obesity hypoventilation syndrome Current Visit: Yes Status: Acute Plan to address problem: Supplemental oxygen, pulse oximetry, noninvasive positive pressure ventilation as clinically indicated, balanced diet, increase physical activity at discharge. (5) Hypertensive urgency Current Visit: No Status: Acute Plan to address problem: Resume prehospital antihypertensive therapy, monitor blood pressure every shift, continue medical management. Blood pressure under control (6) CHF exacerbation Current Visit: Yes Status: Acute Plan to address problem: We will get echocardiogram for ejection fraction Echocardiogram shows normal ejection fraction Shortness of breath better Follow-up with cardiology (7) DVT prophylaxis Current Visit: Yes Status: Acute Plan to address problem: SCD to bilateral lower extremities while in bed, patient is ambulatory. Disposition: -01 TO HOME OR SELFCARE Time spent for discharge: 35 minutes - Discharge Diagnoses (1) Advance care planning Status: Acute (2) Bilateral pneumonia Status: Acute (3) Diabetes Status: Acute (4) Obesity hypoventilation syndrome Status: Acute (5) Suspected 2019 novel coronavirus infection Status: Acute (6) UTI (urinary tract infection) Status: Acute (7) Accelerated hypertension Status: Acute MD Complaint: chest pain -: Gradual, minutes(s) Onset: during rest Pain Location: substernal Pain Radiation: none Severity: moderate Quality: sharp Consistency: now resolved Improves With: nothing Worsens With: nothing re: denies: nausea, vomting, diaphoresis Other Symptoms: other (See HPI) Treatments Prior to Arrival: none - Related Data Home Medications Medication Instructions Recorded Confirmed Last Taken Mirtazapine 45 mg PO HS 08/19/20 08/19/20 Unknown Naproxen 500 mg PO BID PRN 08/19/20 08/19/20 Unknown Previous Rx's Medication Instructions Recorded Last Taken Type Aspirin EC [Halfprin EC] 81 mg PO DAILY #100 tablet 03/19/19 Unknown Rx ISOSORBIDE MONOnitrate [Imdur ER] 30 mg PO QDAY 30 Days #30 tablet 03/19/19 Unknown Rx Simvastatin [Zocor TAB] 40 mg PO QHS #30 tablet 03/19/19 Unknown Rx Nitrofurantoin Forrest/M-Cryst 100 mg PO Q12HR 7 Days #14 capsule 08/19/20 Unknown Rx [Macrobid CAP] traMADoL [Ultram] 50 mg PO Q6HR PRN #7 tablet 08/19/20 Unknown Rx Potassium Chloride [K-Dur] 10 meq PO QDAY #30 tablet 08/22/20 Unknown Rx Valsartan-Hctz 320-12.5 mg Tab 320 mg PO DAILY 30 Days #30 08/22/20 Unknown Rx carvediloL [Coreg] 12.5 mg PO BID 60 Days #60 tablet 08/22/20 Unknown Rx hydrALAZINE [Apresoline TAB] 100 mg PO BID #60 tab 08/22/20 Unknown Rx levoFLOXacin [Levaquin] 750 mg PO QDAY #7 tablet 08/22/20 Unknown Rx metFORMIN XR [Glucophage XR] 500 mg PO QDAY #30 tablet 08/22/20 Unknown Rx traZODone 100 mg PO HS #30 08/22/20 Unknown Rx Allergies Allergy/AdvReac Type Severity Reaction Status Date / Time codeine AdvReac Dizziness Verified 12/26/20 09:12 Heart Score - HEART Score History: Moderately suspicious EKG: Non-specific Age: > 65 Risk factors: > 3 risk factors or hx of atherosclerotic disease Troponin: < normal limit HEART Score: 6 - Critical Actions Critical Actions: 4-6 pts:12-16.6% risk of adverse cardiac event. Should be admitted ED Review of Systems ROS: Stated complaint: CHEST PAINS Other details as noted in HPI ED Past Medical Hx - Past Medical History Previous Medical History?: Yes Hx Hypertension: Yes Hx CVA: No Hx Heart Attack/AMI: No Hx Congestive Heart Failure: No Hx Diabetes: Yes Hx Deep Vein Thrombosis: No Hx Pulmonary Embolism: No Hx GERD: No Hx Liver Disease: No Hx Renal Disease: No Hx Sickle Cell Disease: No Hx Arthritis: Yes Hx Headaches / Migraines: No Hx Seizures: No Hx Kidney Stones: No Hx Psychiatric Treatment: No Hx Asthma: No Hx COPD: No Hx Dementia: No Hx HIV: No Additional medical history: cholesterol, Thyroid problems - Surgical History Past Surgical History?: Yes Hx Coronary Stent: Yes Hx Open Heart Surgery: No Hx Pacemaker: No Hx Internal Defibrillator: No Hx Cholecystectomy: No Hx Appendectomy: No Hx Breast Surgery: No Additional Surgical History: r. knee, and thyroid - Social History Smoking Status: Never Smoker Substance Use Type: None - Medications Home Medications: Home Medications Medication Instructions Recorded Confirmed Last Taken Type Aspirin EC [Halfprin EC] 81 mg PO DAILY #100 tablet 03/19/19 08/19/20 Unknown Rx ISOSORBIDE MONOnitrate [Imdur ER] 30 mg PO QDAY 30 Days #30 tablet 03/19/19 08/19/20 Unknown Rx Simvastatin [Zocor TAB] 40 mg PO QHS #30 tablet 03/19/19 08/19/20 Unknown Rx Mirtazapine 45 mg PO HS 08/19/20 08/19/20 Unknown History Naproxen 500 mg PO BID PRN 08/19/20 08/19/20 Unknown History Nitrofurantoin [place]/M-Cryst 100 mg PO Q12HR 7 Days #14 capsule 08/19/20 Unknown Rx [Macrobid CAP] traMADoL [Ultram] 50 mg PO Q6HR PRN #7 tablet 08/19/20 Unknown Rx Potassium Chloride [K-Dur] 10 meq PO QDAY #30 tablet 08/22/20 Unknown Rx Valsartan-Hctz 320-12.5 mg Tab 320 mg PO DAILY 30 Days #30 08/22/20 Unknown Rx carvediloL [Coreg] 12.5 mg PO BID 60 Days #60 tablet 08/22/20 Unknown Rx hydrALAZINE [Apresoline TAB] 100 mg PO BID #60 tab 08/22/20 Unknown Rx levoFLOXacin [Levaquin] 750 mg PO QDAY #7 tablet 08/22/20 Unknown Rx metFORMIN XR [Glucophage XR] 500 mg PO QDAY #30 tablet 08/22/20 Unknown Rx traZODone 100 mg PO HS #30 08/22/20 Unknown Rx ED Physical Exam - General Limitations: No Limitations ED Course Vital Signs 12/26/20 12/26/20 12/26/20 09:02 09:08 09:40 Temperature 98.0 F 98.0 F Pulse Rate 79 84 Respiratory 20 20 12 Rate Blood Pressure 179/78 179/78 O2 Sat by Pulse 96 96 Oximetry 12/26/20 09:45 Temperature Pulse Rate 75 Respiratory 16 Rate Blood Pressure 173/88 O2 Sat by Pulse 96 Oximetry - Reevaluation(s) Reevaluation #1: I called the patient's daughter. I was unable to reach her. The patient is unable to provide an adequate history. Chest x-ray shows bilateral pulmonary opacities. Covid 19 infection must be considered. Whether the patient's headache And chest pain are related it is unknown. I ordered a CT of her head. Case discussed with Dr. Jones the hospitalist. The patient will be admitted at this time for further care and evaluation. Additional troponin is pending, first was normal. EKG did not show any ischemic changes. The patient is admitted to the hospitalist service for further care and evaluation. 12/26/20 12:35 RAMON score - Ramon Score Age > 65: (1) Yes Aspirin use within the Past 7 Days: (1) Yes 3 or more CAD Risk Factors: (1) Yes 2 or more Angina events in past 24 hrs: (0) No Known CAD with more than 50% Stenosis: (1) Yes Elevated Cardiac Markers: (0) No ST Deviation Greater than 0.5mm: (0) No RAMON Score: 4 ED Medical Decision Making - Lab Data Result diagrams: 12/26/20 09:43 12/26/20 09:43 Laboratory Results - last 24 hr 12/26/20 12/26/20 12/26/20 09:43 09:43 09:43 WBC 4.8 RBC 4.53 Hgb 13.8 Hct 40.5 MCV 89 MCH 31 MCHC 34 RDW 14.5 Plt Count 241 Lymph % (Auto) 35.4 H Forrest % (Auto) 7.8 H Eos % (Auto) 3.4 Baso % (Auto) 0.3 Lymph # (Auto) 1.7 Forrest # (Auto) 0.4 Eos # (Auto) 0.2 Baso # (Auto) 0.0 Seg Neutrophils % 53.1 Seg Neutrophils # 2.5 PT INR APTT Sodium 143 Potassium 3.8 Chloride 106.7 Carbon Dioxide 26 Anion Gap 14 BUN 13 Creatinine 0.8 Estimated GFR > 60 BUN/Creatinine Ratio 16 Glucose 101 H Calcium 9.3 Magnesium 2.10 Total Bilirubin 0.20 Direct Bilirubin < 0.2 AST 18 ALT 16 Alkaline Phosphatase 54 Total Creatine Kinase 197 H CK-MB (CK-2) 3.2 CK-MB (CK-2) Rel Index 1.6 Troponin T < 0.010 NT-Pro-B Natriuret Pep 62.78 Total Protein 7.4 Albumin 4.0 Albumin/Globulin Ratio 1.2 12/26/20 09:43 WBC RBC Hgb Hct MCV MCH MCHC RDW Plt Count Lymph % (Auto) Forrest % (Auto) Eos % (Auto) Baso % (Auto) Lymph # (Auto) Forrest # (Auto) Eos # (Auto) Baso # (Auto) Seg Neutrophils % Seg Neutrophils # PT 13.0 INR 0.99 APTT 29.4 Sodium Potassium Chloride Carbon Dioxide Anion Gap BUN Creatinine Estimated GFR BUN/Creatinine Ratio Glucose Calcium Magnesium Total Bilirubin Direct Bilirubin AST ALT Alkaline Phosphatase Total Creatine Kinase CK-MB (CK-2) CK-MB (CK-2) Rel Index Troponin T NT-Pro-B Natriuret Pep Total Protein Albumin Albumin/Globulin Ratio - EKG Data -: EKG Interpreted by Me EKG shows normal: sinus rhythm - EKG Data Interpretation: LVH, other (Left axis deviation left atrial abnormality suggests LVH with associated repull abnormality) - Radiology Data Radiology results: report reviewed, image reviewed (Pulmonary opacities seen. I would consider COVID-19 infection) Critical care attestation.: If time is entered above; I have spent that time in minutes in the direct care of this critically ill patient, excluding procedure time. ED Disposition Clinical Impression: Person under investigation for COVID-19, Accelerated hypertension Chest pain Qualifiers: Chest pain type: unspecified Qualified Code(s): R07.9 - Chest pain, unspecified Cephalalgia Qualifiers: Headache type: unspecified Headache chronicity pattern: acute headache Intractability: not intractable Qualified Code(s): R51.9 - Headache, unspecified CAD (coronary artery disease) Qualifiers: Coronary Disease-Associated Artery/Lesion type: [place] artery [place] vs. transplanted heart: [place] heart Associated angina: angina presence unspecified Qualified Code(s): I25.10 - Atherosclerotic heart disease of [place] coronary artery without angina pectoris Disposition: OP ADMIT IP TO THIS HOSP Is pt being admited?: Yes Does the pt Need Aspirin: Yes Condition: Stable Instructions: Chest Pain (ED), Hypertension (ED) Referrals: PRIMARY CARE, [Primary Care Provider] - 3-5 Days Time of Disposition: 12:38
--- NOTE | 2020-12-26 09:47 | XRay Report ---
CHEST 1 VIEW INDICATION / CLINICAL INFORMATION: Chest Pain. FINDINGS: SUPPORT DEVICES: None. HEART / MEDIASTINUM: No significant abnormality. LUNGS / PLEURA: Faint bibasilar airspace opacities. The upper lungs are clear. No pleural effusion. Signer Name: Gagandeep Smith MD Signed: 12/26/2020 9:43 AM Workstation Name: [id number]
[2020-12-26 10:05] LABS: Basophils % (Auto) 0.3 % (0.0-1.8); Eosinophils # (Auto) 0.2 K/mm3 (0.0-0.4); Eosinophils % (Auto) 3.4 % (0.0-4.3); Hematocrit 40.5 % (30.3-42.9); Hemoglobin 13.8 gm/dl (10.1-14.3); Lymphocytes # (Auto) 1.7 K/mm3 (1.2-5.4); Lymphocytes % (Auto) 35.4 % (13.4-35.0); Mean Corpuscular HGB Conc 34 % (30-34); Mean Corpuscular Volume 89 fl (79-97); Monocytes # (Auto) 0.4 K/mm3 (0.0-0.8); Monocytes % (Auto) 7.8 % (0.0-7.3); Platelet Count 241 K/mm3 (140-440); Red Blood Count 4.53 M/mm3 (3.65-5.03); Red Cell Distribution Width 14.5 % (13.2-15.2)
[2020-12-26 10:14] LABS: INR 0.99 (0.87-1.13)
[2020-12-26 10:15] LABS: Partial Thromboplastin Time 29.4 Sec. (24.2-36.6)
[2020-12-26 10:27] LABS: Creatine Kinase MB 3.2 ng/mL (0.0-4.0)
[2020-12-26 10:29] LABS: Alanine Aminotransferase 16 units/L (7-56); BUN/Creatinine Ratio 16; Blood Urea Nitrogen 13 mg/dL (7-17); Calcium 9.3 mg/dL (8.4-10.2); Hemolysis Index 36
[2020-12-26 11:07] LABS: Bilirubin,Direct < 0.2 mg/dL (0-0.2)
--- NOTE | 2020-12-26 12:33 | History and Physical Report ---
History of Present Illness Chief complaint: I am hurting and I do not feel good History of present illness: 85 YO Female with HTN, HLD, DM, Hypothyroidism, CAD S/P Stent Placement, Obesity Hypoventilation Syndrome, Metabolic Syndrome, Vascular Dementia, Cerebral Atherosclerosis presents to ED for evaluation. Patient has diminished cognition and is unable to provide detailed history. Patient reports "not feeling well, and pain all over her body. Patient also acknowledges generalized weakness, malaise, body aches, fatigue. Patient transported to [facility] via private vehicle for further care and evaluation of the aforementioned symptoms. Patient seen and evaluated in the emergency department. Lab and imaging studies reviewed. Patient underwent chest x-ray which showed bilateral infiltrates consistent with pneumonia. Patient initiated on coronavirus protocol in the emergency department prior to my evaluation. Patient admitted to medical floor and initiated on pneumonia protocol due to increased risk of decompensation. No reports of fever, chills, chest pain, palpitations, skin rash, recent ill cont acts. Prior admission on 08/13/2019 reviewed. All medication listed at time of admission has been reconciled. Advanced care planning conducted in ED. Past History Past Medical History: CAD, diabetes, hypertension, hyperlipidemia, hypothyroidism, other (See HPI) Past Surgical History: thyroidectomy, total knee replacement, Other (Cardiac stent placement) Social history: . denies: smoking, alcohol abuse, prescription drug abuse Family history: diabetes, hypertension Medications and Allergies Allergies Allergy/AdvReac Type Severity Reaction Status Date / Time codeine AdvReac Dizziness Verified 12/26/20 09:12 Home Medications Medication Instructions Recorded Confirmed Last Taken Type Aspirin EC [Halfprin EC] 81 mg PO DAILY #100 tablet 03/19/19 12/26/20 Unknown Rx ISOSORBIDE MONOnitrate [Imdur ER] 30 mg PO QDAY 30 Days #30 tablet 03/19/19 12/26/20 Unknown Rx Simvastatin [Zocor TAB] 40 mg PO QHS #30 tablet 03/19/19 12/26/20 Unknown Rx Mirtazapine 45 mg PO HS 08/19/20 12/26/20 Unknown History Naproxen 500 mg PO BID PRN 08/19/20 12/26/20 Unknown History Nitrofurantoin [place]/M-Cryst 100 mg PO Q12HR 7 Days #14 capsule 08/19/20 12/26/20 Unknown Rx [Macrobid CAP] traMADoL [Ultram] 50 mg PO Q6HR PRN #7 tablet 08/19/20 12/26/20 Unknown Rx Potassium Chloride [K-Dur] 10 meq PO QDAY #30 tablet 08/22/20 12/26/20 Unknown Rx Valsartan-Hctz 320-12.5 mg Tab 320 mg PO DAILY 30 Days #30 08/22/20 12/26/20 Unknown Rx carvediloL [Coreg] 12.5 mg PO BID 60 Days #60 tablet 08/22/20 12/26/20 Unknown Rx hydrALAZINE [Apresoline TAB] 100 mg PO BID #60 tab 08/22/20 12/26/20 Unknown Rx levoFLOXacin [Levaquin] 750 mg PO QDAY #7 tablet 08/22/20 12/26/20 Unknown Rx metFORMIN XR [Glucophage XR] 500 mg PO QDAY #30 tablet 08/22/20 12/26/20 Unknown Rx traZODone 100 mg PO HS #30 08/22/20 12/26/20 Unknown Rx Review of Systems ROS unobtainable: due to mental status Exam - Constitutional Vitals: Temp Pulse Resp BP Pulse Ox 98.0 F 75 16 173/88 96 12/26/20 09:08 12/26/20 09:45 12/26/20 09:45 12/26/20 09:45 12/26/20 09:45 General appearance: Present: mild distress - EENT Eyes: Present: PERRL ENT: hearing intact, clear oral mucosa - Neck Neck: Present: supple, normal ROM - Respiratory Respiratory effort: normal Respiratory: bilateral: CTA - Cardiovascular Heart Sounds: Present: S1 & S2. Absent: rub, click - Extremities Extremities: pulses symmetrical, No edema Peripheral Pulses: within normal limits - Abdominal General gastrointestinal: Present: soft, non-tender, non-distended, normal bowel sounds Female genitourinary: Present: normal - Integumentary Integumentary: Present: clear, warm, dry - Musculoskeletal Musculoskeletal: gait normal, strength equal bilaterally - Psychiatric Psychiatric: appropriate mood/affect, intact judgment & insight - Neurologic Neurologic: CNII-XII intact, moves all extremities HEART Score - HEART Score Troponin: Troponin T < 0.010 ng/mL (0.00-0.029) 12/26/20 09:43 Results - Labs CBC & Chem 7: 12/26/20 09:43 12/26/20 13:51 Labs: Abnormal lab results 12/26/20 12/26/20 12/26/20 Range/Units 09:43 09:43 09:43 Lymph % (Auto) 35.4 H (13.4-35.0) % [place] % (Auto) 7.8 H (0.0-7.3) % Glucose 101 H (65-100) mg/dL Total Creatine Kinase 197 H (30-135) units/L Assessment and Plan - Patient Problems (1) Pneumonia Current Visit: Yes Status: Acute Plan to address problem: Pneumonia protocol: Chest x-ray, CBC, CMP, IV antibiotic therapy, supplemental oxygen, pulse oximetry, supportive care. (2) Obesity hypoventilation syndrome Current Visit: Yes Status: Acute Plan to address problem: Balanced diet, increase physical activity at discharge, outpatient pulmonary follow-up for sleep study. (3) Diabetes Current Visit: Yes Status: Acute Plan to address problem: Consistent carbohydrate diet, insulin protocol, hypoglycemia protocol, (4) Hyperlipidemia Current Visit: Yes Status: Acute Qualifiers: Hyperlipidemia type: mixed hyperlipidemia Qualified Code(s): E78.2 - Mixed hyperlipidemia Plan to address problem: Statin therapy, supportive care. (5) Accelerated hypertension Current Visit: Yes Status: Acute Plan to address problem: Monitor blood pressure every shift, continue medical management. (6) Person under investigation for COVID-19 Current Visit: Yes Status: Acute Plan to address problem: Contact precautions, isolation precautions, IV antibiotic therapy, IV steroid therapy, supportive care. (7) DVT prophylaxis Current Visit: Yes Status: Acute Plan to address problem: SCD to bilateral lower extremities while in bed, prophylactic anticoagulation (8) Advance care planning Current Visit: Yes Status: Acute Plan to address problem: Disease education conducted, care plan discussed, prognosis Discussed, patient family knowledges understanding and agreement with care plan, +30 minutes.
[2020-12-26] MEDS ORDERED: ALBUTEROL 2.5 MG/3 ML NEBU IH PRN (12:39)
[2020-12-26] MEDS ORDERED: ACETAMINOPHEN 325 MG TAB PO PRN (12:39)
[2020-12-26] MEDS ORDERED: ONDANSETRON 4 MG/2 ML INJ IV PRN (12:39)
[2020-12-26] MEDS ORDERED: NITROGLYCERIN 2% OINT 1 GM TP ONE (12:40)
[2020-12-26] MEDS ORDERED: NAPROXEN 500 MG PO PRN (12:43)
[2020-12-26] MEDS ORDERED: traMADol 50 MG TAB PO PRN (13:03)
[2020-12-26] MEDS ORDERED: NAPROXEN 500 MG TAB PO PRN (13:11)
[2020-12-26] MEDS: methylPREDNISolone Sod Succinate 40 MG/1 ML INJ IV SCH ×2 (13:29→21:07)
[2020-12-26] MEDS: cefTRIAXone/NS 2 GM/100 ML 2 GM/100 ML BAG IV SCH (13:29)
[2020-12-26] MEDS: AZITHROMYCIN/NS 500 MG/250 ML 500 MG/250 ML BAG IV SCH (13:29)
--- NOTE | 2020-12-26 13:50 | Cat Scan Report ---
CT head/brain wo con INDICATION: headache. TECHNIQUE: Routine CT head without contrast. All CT scans at this location are performed using CT dos e reduction for ALARA by means of automated exposure control. COMPARISON: Head CT on 04/15/2019 FINDINGS: BRAIN / INTRACRANIAL CONTENTS: No acute hemorrhage, mass effect, midline shift, or hydrocephalus. No appreciable acute large territorial or lacunar infarct. Stable moderate chronic small vessel ischemic change in the cerebral white matter. Stable age commensurate mild ventricular and cisternal prominen ce. ORBITS: No significant abnormality of visualized orbits. SINUSES / MASTOIDS: No significant abnormality of visualized sinuses and mastoid air cells. ADDITIONAL FINDINGS: None. IMPRESSION: 1. No acute intracranial abnormality. Signer Name: Azam Tse MD Signed: 12/26/2020 1:46 PM Workstation Name: [id number]
[2020-12-26 14:34] LABS: C-Reactive Protein 0.1 mg/dL (0.00-1.30)
[2020-12-26] MEDS: hydrALAZINE 100 MG TAB PO SCH (21:06)
[2020-12-26] MEDS: ASCORBIC ACID 250 MG TAB PO SCH (21:06)
[2020-12-26] MEDS: MIRTAZAPINE 15 MG TAB PO SCH (21:06)
[2020-12-26] MEDS: ZINC SULFATE 220 MG CAP PO SCH (21:06)
[2020-12-26] MEDS: HEPARIN 5,000 UNIT/1 ML VIAL SUB-Q SCH (21:07)
[2020-12-26] MEDS: PRAVASTATIN 80 MG TAB PO SCH (21:07)
[2020-12-26] MEDS: traZODone 100 MG TAB PO SCH (21:07)
[2020-12-26] MEDS: carvediloL 12.5 MG TAB PO SCH (21:07)
[2020-12-26] MEDS: FAMOTIDINE 20 MG TAB PO SCH (21:07)
[2020-12-26] MEDS ORDERED: NON-FORMULARY EACH (Simvastatin 40 MG Tablet) PO SCH (22:00)
[2020-12-26] MEDS ORDERED: MIRTAZAPINE 45 MG PO SCH (22:00)
[2020-12-26] MEDS ORDERED: TRAZODONE 100 MG PO SCH (22:00)
[2020-12-27] MEDS: methylPREDNISolone Sod Succinate 40 MG/1 ML INJ IV SCH ×3 (05:27→21:25)
[2020-12-27] MEDS: hydrALAZINE 20 MG/1 ML INJ IV PRN ×2 (05:51→18:32)
--- NOTE | 2020-12-27 07:55 | Progress Note ---
Assessment and Plan Assessment and plan: Sepsis. Patient meets criteria given the tachycardia, altered mentation and diagnosis of pneumonia. Bilateral pneumonia. Suspected Covid infection. Obesity hypoventilation syndrome. Acute hypoxic respiratory failure. Etiology secondary to above. Diabetes mellitus type 2. Hyperlipidemia. Accelerated hypertension. 12/27/2020. Chest x-ray reveals bilateral opacities/infiltrates. Covid testing p ending. Inflammatory markers revealed D-dimer 1294, ferritin normal at 83 LDH slightly elevated at 291 and C-reactive protein normal at 0.1. Procalcitonin also normal. Continue to trend inflammatory markers. Continue antibiotics until evaluated by ID. We will likely discontinue given normal procalcitonin levels. Continue O2 or BiPAP as clinically indicated to maintain sats greater than 92% continue steroids and consider adding remdesivir if patient hypoxic. History Interval history: No new issues overnight. Hospitalist Physical - Constitutional Vitals: Temp Pulse Resp BP Pulse Ox 97.4 F L 80 20 187/94 94 12/27/20 05:30 12/27/20 05:30 12/27/20 05:30 12/27/20 05:30 12/27/20 05:30 General appearance: Present: mild distress - EENT Eyes: Present: PERRL, EOM intact ENT: hearing intact, clear oral mucosa, dentition normal - Neck Neck: Present: supple, normal ROM - Respiratory Respiratory effort: normal Respiratory: bilateral: CTA - Cardiovascular Rhythm: regular Heart Sounds: Present: S1 & S2. Absent: gallop, rub - Extremities Extremities: no ischemia, No edema, Full ROM - Abdominal General gastrointestinal: soft, non-tender, non-distended, normal bowel sounds - Integumentary Integumentary: Present: clear, warm, dry - Neurologic Neurologic: CNII-XII intact, moves all extremities HEART Score - HEART Score EKG: Non-specific Age: > 65 Risk factors: > 3 risk factors or hx of atherosclerotic disease Troponin: Troponin T < 0.010 ng/mL (0.00-0.029) 12/26/20 12:07 Troponin: < normal limit - Critical Actions Critical Actions: 4-6 pts:12-16.6% risk of adverse cardiac event. Should be admitted Results - Labs CBC & Chem 7: 12/26/20 09:43 12/26/20 13:51 Labs: Laboratory Last Values WBC 4.8 K/mm3 (4.5-11.0) 12/26/20 09:43 RBC 4.53 M/mm3 (3.65-5.03) 12/26/20 09:43 Hgb 13.8 gm/dl (10.1-14.3) 12/26/20 09:43 Hct 40.5 % (30.3-42.9) 12/26/20 09:43 MCV 89 fl (79-97) 12/26/20 09:43 MCH 31 pg (28-32) 12/26/20 09:43 MCHC 34 % (30-34) 12/26/20 09:43 RDW 14.5 % (13.2-15.2) 12/26/20 09:43 Plt Count 241 K/mm3 (140-440) 12/26/20 09:43 Lymph % (Auto) 35.4 % (13.4-35.0) H 12/26/20 09:43 [place] % (Auto) 7.8 % (0.0-7.3) H 12/26/20 09:43 Eos % (Auto) 3.4 % (0.0-4.3) 12/26/20 09:43 Baso % (Auto) 0.3 % (0.0-1.8) 12/26/20 09:43 Lymph # (Auto) 1.7 K/mm3 (1.2-5.4) 12/26/20 09:43 [place] # (Auto) 0.4 K/mm3 (0.0-0.8) 12/26/20 09:43 Eos # (Auto) 0.2 K/mm3 (0.0-0.4) 12/26/20 09:43 Baso # (Auto) 0.0 K/mm3 (0.0-0.1) 12/26/20 09:43 Seg Neutrophils % 53.1 % (40.0-70.0) 12/26/20 09:43 Seg Neutrophils # 2.5 K/mm3 (1.8-7.7) 12/26/20 09:43 PT 13.0 Sec. (12.2-14.9) 12/26/20 09:43 INR 0.99 (0.87-1.13) 12/26/20 09:43 APTT 29.4 Sec. (24.2-36.6) 12/26/20 09:43 D-Dimer 1294.42 ng/mlDDU (0-234) H 12/26/20 13:51 Sodium 143 mmol/L (137-145) 12/26/20 09:43 Potassium 3.8 mmol/L (3.6-5.0) 12/26/20 09:43 Chloride 106.7 mmol/L (98-107) 12/26/20 09:43 Carbon Dioxide 26 mmol/L (22-30) 12/26/20 09:43 Anion Gap 14 mmol/L 12/26/20 09:43 BUN 13 mg/dL (7-17) 12/26/20 09:43 Creatinine 0.8 mg/dL (0.6-1.2) 12/26/20 09:43 Estimated GFR > 60 ml/min 12/26/20 09:43 BUN/Creatinine Ratio 16 % 12/26/20 09:43 Glucose 155 mg/dL (65-100) H 12/26/20 13:51 POC Glucose 229 mg/dL (70-105) H 12/26/20 21:43 Calcium 9.3 mg/dL (8.4-10.2) 12/26/20 09:43 Magnesium 2.10 mg/dL (1.7-2.3) 12/26/20 09:43 Ferritin 83.8 ng/mL (10.0-200.0) 12/26/20 13:51 Total Bilirubin 0.20 mg/dL (0.1-1.2) 12/26/20 09:43 Direct Bilirubin < 0.2 mg/dL (0-0.2) 12/26/20 09:43 AST 18 units/L (5-40) 12/26/20 09:43 ALT 16 units/L (7-56) 12/26/20 09:43 Alkaline Phosphatase 54 units/L (35-129) 12/26/20 09:43 Lactate Dehydrogenase 291 units/L (91-180) H 12/26/20 13:51 Total Creatine Kinase 197 units/L (30-135) H 12/26/20 09:43 CK-MB (CK-2) 3.2 ng/mL (0.0-4.0) 12/26/20 09:43 CK-MB (CK-2) Rel Index 1.6 (0-4) 12/26/20 09:43 Troponin T < 0.010 ng/mL (0.00-0.029) 12/26/20 12:07 C-Reactive Protein 0.10 mg/dL (0.00-1.30) 12/26/20 13:51 NT-Pro-B Natriuret Pep 62.78 pg/mL (0-900) 12/26/20 09:43 Total Protein 7.4 g/dL (6.3-8.2) 12/26/20 09:43 Albumin 4.0 g/dL (3.9-5) 12/26/20 09:43 Albumin/Globulin Ratio 1.2 % 12/26/20 09:43 Procalcitonin < 0.05 ng/mL (<0.15) 12/26/20 13:51 Microbiology: Microbiology 12/26/20 13:51 Peripheral/Venous Blood Culture - Preliminary Culture in Progress 12/26/20 13:51 Peripheral/Venous Blood Culture - Preliminary Culture in Progress [place]an/IV: Voiding Method Toilet Active Medications - Current Medications Current Medications: Generic Name Dose Route Start Last Admin Trade Name Freq PRN Reason Stop Dose Admin Acetaminophen 650 mg 12/26/20 12:39 Acetaminophen 325 Mg Tab PO Q4H PRN Pain MILD(1-3)/Fever >100.5/GALLARDO Albuterol 2.5 mg 12/26/20 12:39 Albuterol 2.5 Mg/3 Ml Nebu IH Q4HRT PRN Shortness Of Breath Ascorbic Acid 250 mg 12/26/20 22:00 12/26/20 21:06 Ascorbic Acid 250 Mg Tab PO 250 mg BID ALICE Administration Aspirin 81 mg 12/27/20 10:00 Aspirin Ec 81 Mg Tab PO DAILY ALICE Carvedilol 12.5 mg 12/26/20 22:00 12/26/20 21:07 Carvedilol 12.5 Mg Tab PO 12.5 mg BID ALICE Administration Cholecalciferol 1,000 unit 12/27/20 10:00 Cholecalciferol (Vit D3) 1000 Unit (25 Mcg) Tab PO QDAY ALIEC Famotidine 20 mg 12/26/20 22:00 12/26/20 21:07 Famotidine 20 Mg Tab PO 20 mg BID ALICE Administration Heparin Sodium (Porcine) 5,000 unit 12/26/20 22:00 12/26/20 21:07 Heparin 5,000 Unit/1 Ml Vial SUB-Q 5,000 unit Q12HR ALICE Administration Hydralazine HCl 100 mg 12/26/20 22:00 12/26/20 21:06 Hydralazine 100 Mg Tab PO 100 mg BID ALICE Administration Hydralazine HCl 10 mg 12/27/20 05:34 12/27/20 05:51 Hydralazine 20 Mg/1 Ml Inj IV 10 mg Q6H PRN Administration Blood Pressure Hydrochlorothiazide 12.5 mg 12/27/20 10:00 Hydrochlorothiazide 12.5 Mg Cap PO QDAY ALICE Ceftriaxone Sodium 2 gm in 100 mls @ 200 mls/hr 12/26/20 14:00 12/26/20 13:29 Rocephin/Ns 2 Gm/100 Ml IV 200 mls/hr Q24H ALICE Administration Protocol Azithromycin 500 mg in 250 mls @ 250 mls/hr 12/26/20 13:30 12/26/20 13:29 Zithromax/Ns IV 250 mls/hr Q24H [facility] Administration Protocol Insulin Human Lispro 0 unit 12/27/20 22:33 12/26/20 22:39 Insulin Lispro 100 Unit/Ml SUB-Q 3 unit ACHS [facility] Administration Protocol Isosorbide Mononitrate 30 mg 12/27/20 10:00 Isosorbide Mononitrate Er 30 Mg Tab PO QDAY [facility] Metformin HCl 500 mg 12/27/20 08:00 Metformin 500 Mg Tab PO QDDIAB [facility] Methylprednisolone Sodium Succinate 40 mg 12/26/20 14:00 12/27/20 05:27 Methylprednisolone Sod Succinate 40 Mg/1 Ml Inj IV 40 mg Q8H ALICE Administration Mirtazapine 45 mg 12/26/20 22:00 12/26/20 21:06 Mirtazapine 15 Mg Tab PO 45 mg QHS ALICE Administration Naproxen 500 mg 12/26/20 13:11 Naproxen 500 Mg Tab PO Q12H PRN Pain, Mild (1-3) Ondansetron HCl 4 mg 12/26/20 12:39 Ondansetron 4 Mg/2 Ml Inj IV Q8H PRN Nausea And Vomiting Potassium Chloride 10 meq 12/27/20 10:00 Potassium Chloride Er 10 Meq Tab PO QDAY ALICE Pravastatin Sodium 80 mg 12/26/20 22:00 12/26/20 21:07 Pravastatin 80 Mg Tab PO 80 mg QHS ALICE Administration Sodium Chloride 10 ml 12/26/20 22:00 12/26/20 21:08 Sodium Chloride 0.9% 10 Ml Flush Syringe IV 10 ml BID ALICE Administration Sodium Chloride 10 ml 12/26/20 12:39 Sodium Chloride 0.9% 10 Ml Flush Syringe IV PRN PRN LINE FLUSH Tramadol HCl 50 mg 12/26/20 13:03 Tramadol 50 Mg Tab PO Q6H PRN Pain, Moderate (4-6) Trazodone HCl 100 mg 12/26/20 22:00 12/26/20 21:07 Trazodone 100 Mg Tab PO 100 mg QHS ALICE Administration Valsartan 320 mg 12/27/20 10:00 Valsartan 160mg Tab PO QDAY ALICE Zinc Sulfate 220 mg 12/26/20 22:00 12/26/20 21:06 Zinc Sulfate 220 Mg Cap PO 220 mg BID ALICE Administration
[2020-12-27] MEDS: ZINC SULFATE 220 MG CAP PO SCH ×2 (09:19→21:41)
[2020-12-27] MEDS: metFORMIN 500 MG TAB PO SCH (09:19)
[2020-12-27] MEDS: ASPIRIN EC 81 MG TAB PO SCH (09:19)
[2020-12-27] MEDS: HEPARIN 5,000 UNIT/1 ML VIAL SUB-Q SCH ×2 (09:19→21:28)
[2020-12-27] MEDS: hydroCHLOROthiazide 12.5 MG CAP PO SCH (09:20)
[2020-12-27] MEDS: POTASSIUM CHLORIDE ER 10 MEQ TAB PO SCH (09:20)
[2020-12-27] MEDS: ASCORBIC ACID 250 MG TAB PO SCH ×2 (09:20→21:24)
[2020-12-27] MEDS: CHOLECALCIFEROL (VIT D3) 1000 UNIT (25 mcg) TAB PO SCH (09:20)
[2020-12-27] MEDS: VALSARTAN 160MG TAB PO SCH (09:20)
[2020-12-27] MEDS: FAMOTIDINE 20 MG TAB PO SCH ×2 (09:20→21:23)
[2020-12-27] MEDS: hydrALAZINE 100 MG TAB PO SCH ×2 (09:21→21:25)
[2020-12-27] MEDS: carvediloL 12.5 MG TAB PO SCH ×2 (09:29→21:25)
[2020-12-27] MEDS ORDERED: VALSARTAN HCTZ PO SCH (10:00)
[2020-12-27] MEDS: INSULIN LISPRO 100 UNIT/ML SUB-Q SCH ×3 (12:24→21:26)
[2020-12-27] MEDS: AZITHROMYCIN/NS 500 MG/250 ML 500 MG/250 ML BAG IV SCH (12:43)
--- NOTE | 2020-12-27 12:53 | Consultation ---
History of Present Illness - Reason for Consult Consult date: 12/27/20 R/o COVID Requesting physician: BRIAN ALEXANDER - History of Present Illness 85 years old female with history of diabetes mellitus, hypertension, hyperlipidemia, hypothyroidism, CAD, obesity, dementia, admitted on 12/26/2020 secondary to few days history of generalized malaise, body aches, fatigue. On arrival, temperature 98, HR 79, RR 20, O2 96, BP 179/78. D-dimer 1294. Ferritin 83. LDH 291 creatinine 0.1. Procalcitonin low. Blood culture 12/26/2020 pending. Chest x-ray shows bibasilar interstitial infiltrates. Review of Systems: reviewed ED and H&P notes. Review of system deferred to minimize COVID-19 transmission. Past History Past Medical History: CAD, diabetes, hypertension, hyperlipidemia, hypothyroidism, other (See HPI) Past Surgical History: thyroidectomy, total knee replacement, Other (Cardiac stent placement) Social history: . denies: smoking, alcohol abuse, prescription drug abuse Family history: diabetes, hypertension Medications and Allergies Allergies Allergy/AdvReac Type Severity Reaction Status Date / Time codeine AdvReac Dizziness Verified 12/26/20 09:12 Home Medications Medication Instructions Recorded Confirmed Last Taken Type Aspirin EC [Halfprin EC] 81 mg PO DAILY #100 tablet 03/19/19 12/26/20 Unknown Rx ISOSORBIDE MONOnitrate [Imdur ER] 30 mg PO QDAY 30 Days #30 tablet 03/19/19 12/26/20 Unknown Rx Simvastatin [Zocor TAB] 40 mg PO QHS #30 tablet 03/19/19 12/26/20 Unknown Rx Mirtazapine 45 mg PO HS 08/19/20 12/26/20 Unknown History Naproxen 500 mg PO BID PRN 08/19/20 12/26/20 Unknown History Nitrofurantoin [place]/M-Cryst 100 mg PO Q12HR 7 Days #14 capsule 08/19/20 12/26/20 Unknown Rx [Macrobid CAP] traMADoL [Ultram] 50 mg PO Q6HR PRN #7 tablet 08/19/20 12/26/20 Unknown Rx Potassium Chloride [K-Dur] 10 meq PO QDAY #30 tablet 08/22/20 12/26/20 Unknown Rx Valsartan-Hctz 320-12.5 mg Tab 320 mg PO DAILY 30 Days #30 08/22/20 12/26/20 Unknown Rx carvediloL [Coreg] 12.5 mg PO BID 60 Days #60 tablet 08/22/20 12/26/20 Unknown Rx hydrALAZINE [Apresoline TAB] 100 mg PO BID #60 tab 08/22/20 12/26/20 Unknown Rx levoFLOXacin [Levaquin] 750 mg PO QDAY #7 tablet 08/22/20 12/26/20 Unknown Rx metFORMIN XR [Glucophage XR] 500 mg PO QDAY #30 tablet 08/22/20 12/26/20 Unknown Rx traZODone 100 mg PO HS #30 08/22/20 12/26/20 Unknown Rx Active Meds: Active Medications Acetaminophen (Acetaminophen 325 Mg Tab) 650 mg PO Q4H PRN PRN Reason: Pain MILD(1-3)/Fever >100.5/GALLARDO Albuterol (Albuterol 2.5 Mg/3 Ml Nebu) 2.5 mg IH Q4HRT PRN PRN Reason: Shortness Of Breath Ascorbic Acid (Ascorbic Acid 250 Mg Tab) 250 mg PO BID COUNTS INCLUDE 234 BEDS AT THE [facility] Last Admin: 12/27/20 09:20 Dose: 250 mg Documented by: Aspirin (Aspirin Ec 81 Mg Tab) 81 mg PO DAILY COUNTS INCLUDE 234 BEDS AT THE [facility] Last Admin: 12/27/20 09:19 Dose: 81 mg Documented by: Carvedilol (Carvedilol 12.5 Mg Tab) 12.5 mg PO BID COUNTS INCLUDE 234 BEDS AT THE [facility] Last Admin: 12/27/20 09:29 Dose: 12.5 mg Documented by: Cholecalciferol (Cholecalciferol (Vit D3) 1000 Unit (25 Mcg) Tab) 1,000 unit PO QDAY COUNTS INCLUDE 234 BEDS AT THE [facility] Last Admin: 12/27/20 09:20 Dose: 1,000 unit Documented by: Famotidine (Famotidine 20 Mg Tab) 20 mg PO BID COUNTS INCLUDE 234 BEDS AT THE [facility] Last Admin: 12/27/20 09:20 Dose: 20 mg Documented by: Heparin Sodium (Porcine) (Heparin 5,000 Unit/1 Ml Vial) 5,000 unit SUB-Q Q12HR COUNTS INCLUDE 234 BEDS AT THE [facility] Last Admin: 12/27/20 09:19 Dose: 5,000 unit Documented by: Hydralazine HCl (Hydralazine 100 Mg Tab) 100 mg PO BID COUNTS INCLUDE 234 BEDS AT THE [facility] Last Admin: 12/27/20 09:21 Dose: 100 mg Documented by: Hydralazine HCl (Hydralazine 20 Mg/1 Ml Inj) 10 mg IV Q6H PRN PRN Reason: Blood Pressure Last Admin: 12/27/20 05:51 Dose: 10 mg Documented by: Hydrochlorothiazide (Hydrochlorothiazide 12.5 Mg Cap) 12.5 mg PO QDAY COUNTS INCLUDE 234 BEDS AT THE [facility] Last Admin: 12/27/20 09:20 Dose: 12.5 mg Documented by: Ceftriaxone Sodium (Rocephin/Ns 2 Gm/100 Ml) 2 gm in 100 mls @ 200 mls/hr IV Q24H COUNTS INCLUDE 234 BEDS AT THE [facility]; Protocol Last Admin: 12/26/20 13:29 Dose: 200 mls/hr Documented by: Azithromycin (Zithromax/Ns) 500 mg in 250 mls @ 250 mls/hr IV Q24H ALICE; Pro tocol Last Admin: 12/27/20 12:43 Dose: 250 mls/hr Documented by: Insulin Human Lispro (Insulin Lispro 100 Unit/Ml) 0 unit SUB-Q ACHS COUNTS INCLUDE 234 BEDS AT THE [facility]; Protocol Last Admin: 12/27/20 12:24 Dose: 4 unit Documented by: Isosorbide Mononitrate (Isosorbide Mononitrate Er 30 Mg Tab) 30 mg PO QDAY COUNTS INCLUDE 234 BEDS AT THE [facility] Last Admin: 12/27/20 09:20 Dose: 30 mg Documented by: Metformin HCl (Metformin 500 Mg Tab) 500 mg PO QDDIAB COUNTS INCLUDE 234 BEDS AT THE [facility] Last Admin: 12/27/20 09:19 Dose: 500 mg Documented by: Methylprednisolone Sodium Succinate (Methylprednisolone Sod Succinate 40 Mg/1 Ml Inj) 40 mg IV Q8H COUNTS INCLUDE 234 BEDS AT THE [facility] Last Admin: 12/27/20 05:27 Dose: 40 mg Documented by: Mirtazapine (Mirtazapine 15 Mg Tab) 45 mg PO QHS COUNTS INCLUDE 234 BEDS AT THE [facility] Last Admin: 12/26/20 21:06 Dose: 45 mg Documented by: Naproxen (Naproxen 500 Mg Tab) 500 mg PO Q12H PRN PRN Reason: Pain, Mild (1-3) Ondansetron HCl (Ondansetron 4 Mg/2 Ml Inj) 4 mg IV Q8H PRN PRN Reason: Nausea And Vomiting Potassium Chloride (Potassium Chloride Er 10 Meq Tab) 10 meq PO QDAY COUNTS INCLUDE 234 BEDS AT THE [facility] Last Admin: 12/27/20 09:20 Dose: 10 meq Documented by: Pravastatin Sodium (Pravastatin 80 Mg Tab) 80 mg PO QHS COUNTS INCLUDE 234 BEDS AT THE [facility] Last Admin: 12/26/20 21:07 Dose: 80 mg Documented by: Sodium Chloride (Sodium Chloride 0.9% 10 Ml Flush Syringe) 10 ml IV BID COUNTS INCLUDE 234 BEDS AT THE [facility] Last Admin: 12/27/20 09:21 Dose: 10 ml Documented by: Sodium Chloride (Sodium Chloride 0.9% 10 Ml Flush Syringe) 10 ml IV PRN PRN PRN Reason: LINE FLUSH Tramadol HCl (Tramadol 50 Mg Tab) 50 mg PO Q6H PRN PRN Reason: Pain, Moderate (4-6) Trazodone HCl (Trazodone 100 Mg Tab) 100 mg PO QHS COUNTS INCLUDE 234 BEDS AT THE [facility] Last Admin: 12/26/20 21:07 Dose: 100 mg Documented by: Valsartan (Valsartan 160mg Tab) 320 mg PO QDAY COUNTS INCLUDE 234 BEDS AT THE [facility] Last Admin: 12/27/20 09:20 Dose: 320 mg Documented by: Zinc Sulfate (Zinc Sulfate 220 Mg Cap) 220 mg PO BID COUNTS INCLUDE 234 BEDS AT THE [facility] Last Admin: 12/27/20 09:19 Dose: 220 mg Documented by: Physical Examination - Physical Exam Narrative exam: Physical exam deferred to minimize COVID-19 transmission during pandemic. - Constitutional Vitals: Vital Signs Temp Pulse Resp BP Pulse Ox 98.6 F 92 H 18 160/86 93 12/27/20 11:45 12/27/20 11:46 12/27/20 11:45 12/27/20 11:46 12/27/20 11:46 Temperature -Last 24 Hours Temperature 98.6 F Temperature 97.4 F Temperature 97.4 F Temperature 98.3 F Temperature 98.2 F Temperature 98.2 F Temperature 98.9 F Results - Labs CBC & Chem 7: 12/26/20 09:43 12/26/20 13:51 Labs: Abnormal lab results 12/26/20 12/26/20 12/26/20 Range/Units 13:51 13:51 16:52 D-Dimer 1294.42 H (0-234) ng/mlDDU Glucose 155 H (65-100) mg/dL POC Glucose 175 H (70-105) mg/dL Lactate Dehydrogenase 291 H (91-180) units/L 12/26/20 12/27/20 12/27/20 Range/Units 21:43 07:56 11:47 D-Dimer (0-234) ng/mlDDU Glucose (65-100) mg/dL POC Glucose 229 H 180 H 258 H (70-105) mg/dL Lactate Dehydrogenase (91-180) units/L Assessment and Plan Cultures: Blood culture pending SARS CoV2 PCR pending Assessment: 85 years old female with history of diabetes mellitus, hypertension, hyperlipidemia, hypothyroidism, CAD, obesity, dementia, admitted on 12/26/2020 secondary to few days history of generalized malaise, body aches, fatigue: #Bilateral pneumonia: Rule out COVID-19 infection. D-dimer elevated, ferritin normal. Procalcitonin low. Transient hypoxia O2 sat down to 91%. Patient currently on room air. Recommendations: -Obtain 6-minute walking test -Check BNP -Start Dexamethasone 6 mg x 1 for now -Follow-up SARS-CoV-2 PCR if positive continue dexamethasone and if requires supplemental oxygen more than 2 L please start remdesivir -Monitor inflammatory markers - ferritin, Ddimer, CRP, LDH -Continue anticoagulation per System Protocol -Stop ceftriaxone and azithromycin, procalcitonin <0.25 ng/mL All laboratory, cultures and imaging were reviewed. Will follow Lorie Casiano MD Infectious Diseases Investigator Operator [facility] ([facility] M [phone] O [phone]
[2020-12-27] MEDS: cefTRIAXone/NS 2 GM/100 ML 2 GM/100 ML BAG IV SCH (13:32)
[2020-12-27] MEDS: MIRTAZAPINE 15 MG TAB PO SCH (21:23)
[2020-12-27] MEDS: traZODone 100 MG TAB PO SCH (21:24)
[2020-12-27] MEDS: PRAVASTATIN 80 MG TAB PO SCH (21:24)
[2020-12-27] MEDS ORDERED: INSULIN LISPRO 100 UNIT/ML SUB-Q SCH (22:33)
[2020-12-28] MEDS: hydrALAZINE 20 MG/1 ML INJ IV PRN ×2 (04:31→09:35)
[2020-12-28] MEDS: methylPREDNISolone Sod Succinate 40 MG/1 ML INJ IV SCH ×2 (05:17→13:10)
[2020-12-28 05:19] LABS: Basophils % (Auto) 0.2 % (0.0-1.8); Hematocrit 41.4 % (30.3-42.9); Lymphocytes # (Auto) 1.3 K/mm3 (1.2-5.4); Lymphocytes % (Auto) 9.7 % (13.4-35.0); Mean Corpuscular HGB Conc 34 % (30-34); Mean Corpuscular Volume 91 fl (79-97); Monocytes # (Auto) 0.2 K/mm3 (0.0-0.8); Monocytes % (Auto) 1.8 % (0.0-7.3); Platelet Count 267 K/mm3 (140-440); Red Blood Count 4.56 M/mm3 (3.65-5.03); Red Cell Distribution Width 14.9 % (13.2-15.2)
[2020-12-28 05:49] LABS: BUN/Creatinine Ratio 26; Blood Urea Nitrogen 21 mg/dL (7-17); Calcium 8.8 mg/dL (8.4-10.2); Hemolysis Index 4
[2020-12-28] MEDS: metFORMIN 500 MG TAB PO SCH (08:50)
--- NOTE | 2020-12-28 09:19 | Progress Note ---
Assessment and Plan Assessment and plan: Sepsis. Patient meets criteria given the tachycardia, altered mentation and diagnosis of pneumonia. Bilateral pneumonia. Suspected Covid infection. Obesity hypoventilation syndrome. Acute hypoxic respiratory failure. Etiology secondary to above. Diabetes mellitus type 2. Hyperlipidemia. Accelerated hypertension. 12/27/2020. Chest x-ray reveals bilateral opacities/infiltrates. Covid testing p ending. Inflammatory markers revealed D-dimer 1294, ferritin normal at 83 LDH slightly elevated at 291 and C-reactive protein normal at 0.1. Procalcitonin also normal. Continue to trend inflammatory markers. Continue antibiotics until evaluated by ID. We will likely discontinue given normal procalcitonin levels. Continue O2 or BiPAP as clinically indicated to maintain sats greater than 92% continue steroids and consider adding remdesivir if patient hypoxic. 12/28/2020. COVID-19 testing found to be negative. Antibiotics discontinued secondary to normal procalcitonin. BNP normal on admission so no evidence of heart failure. Follow-up CTA of chest for further evaluation of "faint bibas ilar opacity" as read by the radiologist. Patient also has elevated D-dimer. I spoke with her daughter who reported patient having chest pain for approximately 5 days prior to admission. Patient denies any chest pain currently. Patient has had a previous stent done by Dr. Clark. We will consult cardiology. Patient with accelerated hypertension and systolic blood pressure greater than 220. We will start Procardia 60 mg twice daily History Interval history: No new issues overnight. Hospitalist Physical - Constitutional Vitals: Temp Pulse Resp BP Pulse Ox 96.3 F L 91 H 16 225/93 94 12/28/20 08:15 12/28/20 08:15 12/28/20 04:16 12/28/20 08:15 12/28/20 08:49 General appearance: Present: mild distress - EENT Eyes: Present: PERRL, EOM intact ENT: hearing intact, clear oral mucosa, dentition normal - Neck Neck: Present: supple, normal ROM - Respiratory Respiratory effort: normal Respiratory: bilateral: CTA - Cardiovascular Rhythm: regular Heart Sounds: Present: S1 & S2. Absent: gallop, rub - Extremities Extremities: no ischemia, No edema, Full ROM - Abdominal General gastrointestinal: soft, non-tender, non-distended, normal bowel sounds - Integumentary Integumentary: Present: clear, warm, dry - Neurologic Neurologic: CNII-XII intact, moves all extremities HEART Score - HEART Score EKG: Non-specific Age: > 65 Risk factors: > 3 risk factors or hx of atherosclerotic disease Troponin: Troponin T < 0.010 ng/mL (0.00-0.029) 12/26/20 12:07 Troponin: < normal limit - Critical Actions Critical Actions: 4-6 pts:12-16.6% risk of adverse cardiac event. Should be admitted Results - Labs CBC & Chem 7: 12/28/20 04:35 12/28/20 04:35 Labs: Laboratory Last Values WBC 13.2 K/mm3 (4.5-11.0) H 12/28/20 04:35 RBC 4.56 M/mm3 (3.65-5.03) 12/28/20 04:35 Hgb 14.0 gm/dl (10.1-14.3) 12/28/20 04:35 Hct 41.4 % (30.3-42.9) 12/28/20 04:35 MCV 91 fl (79-97) 12/28/20 04:35 MCH 31 pg (28-32) 12/28/20 04:35 MCHC 34 % (30-34) 12/28/20 04:35 RDW 14.9 % (13.2-15.2) 12/28/20 04:35 Plt Count 267 K/mm3 (140-440) 12/28/20 04:35 Lymph % (Auto) 9.7 % (13.4-35.0) L 12/28/20 04:35 Sargent % (Auto) 1.8 % (0.0-7.3) 12/28/20 04:35 Eos % (Auto) 0.0 % (0.0-4.3) 12/28/20 04:35 Baso % (Auto) 0.2 % (0.0-1.8) 12/28/20 04:35 Lymph # (Auto) 1.3 K/mm3 (1.2-5.4) 12/28/20 04:35 Sargent # (Auto) 0.2 K/mm3 (0.0-0.8) 12/28/20 04:35 Eos # (Auto) 0.0 K/mm3 (0.0-0.4) 12/28/20 04:35 Baso # (Auto) 0.0 K/mm3 (0.0-0.1) 12/28/20 04:35 Seg Neutrophils % 88.3 % (40.0-70.0) H 12/28/20 04:35 Seg Neutrophils # 11.7 K/mm3 (1.8-7.7) H 12/28/20 04:35 PT 13.0 Sec. (12.2-14.9) 12/26/20 09:43 INR 0.99 (0.87-1.13) 12/26/20 09:43 APTT 29.4 Sec. (24.2-36.6) 12/26/20 09:43 D-Dimer 1294.42 ng/mlDDU (0-234) H 12/26/20 13:51 Sodium 140 mmol/L (137-145) 12/28/20 04:35 Potassium 3.8 mmol/L (3.6-5.0) 12/28/20 04:35 Chloride 105.2 mmol/L (98-107) 12/28/20 04:35 Carbon Dioxide 23 mmol/L (22-30) 12/28/20 04:35 Anion Gap 16 mmol/L 12/28/20 04:35 BUN 21 mg/dL (7-17) H 12/28/20 04:35 Creatinine 0.8 mg/dL (0.6-1.2) 12/28/20 04:35 Estimated GFR > 60 ml/min 12/28/20 04:35 BUN/Creatinine Ratio 26 % 12/28/20 04:35 Glucose 196 mg/dL (65-100) H 12/28/20 04:35 POC Glucose 180 mg/dL (70-105) H 12/28/20 07:54 Calcium 8.8 mg/dL (8.4-10.2) 12/28/20 04:35 Magnesium 2.10 mg/dL (1.7-2.3) 12/26/20 09:43 Ferritin 83.8 ng/mL (10.0-200.0) 12/26/20 13:51 Total Bilirubin 0.20 mg/dL (0.1-1.2) 12/26/20 09:43 Direct Bilirubin < 0.2 mg/dL (0-0.2) 12/26/20 09:43 AST 18 units/L (5-40) 12/26/20 09:43 ALT 16 units/L (7-56) 12/26/20 09:43 Alkaline Phosphatase 54 units/L (35-129) 12/26/20 09:43 Lactate Dehydrogenase 291 units/L (91-180) H 12/26/20 13:51 Total Creatine Kinase 197 units/L (30-135) H 12/26/20 09:43 CK-MB (CK-2) 3.2 ng/mL (0.0-4.0) 12/26/20 09:43 CK-MB (CK-2) Rel Index 1.6 (0-4) 12/26/20 09:43 Troponin T < 0.010 ng/mL (0.00-0.029) 12/26/20 12:07 C-Reactive Protein 0.10 mg/dL (0.00-1.30) 12/26/20 13:51 NT-Pro-B Natriuret Pep 323.5 pg/mL (0-900) 12/27/20 13:25 Total Protein 7.4 g/dL (6.3-8.2) 12/26/20 09:43 Albumin 4.0 g/dL (3.9-5) 12/26/20 09:43 Albumin/Globulin Ratio 1.2 % 12/26/20 09:43 Procalcitonin < 0.05 ng/mL (<0.15) 12/26/20 13:51 Coronavirus (PCR) Negative (Negative) 12/27/20 09:25 Microbiology: Microbiology 12/26/20 13:51 Peripheral/Venous Blood Culture - Preliminary NO GROWTH AFTER 24 HOURS 12/26/20 13:51 Peripheral/Venous Blood Culture - Preliminary NO GROWTH AFTER 24 HOURS Beltran/IV: Voiding Method Toilet Active Medications - Current Medications Current Medications: Generic Name Dose Route Start Last Admin Trade Name Freq PRN Reason Stop Dose Admin Acetaminophen 650 mg 12/26/20 12:39 Acetaminophen 325 Mg Tab PO Q4H PRN Pain MILD(1-3)/Fever >100.5/GALLARDO Albuterol 2.5 mg 12/26/20 12:39 Albuterol 2.5 Mg/3 Ml Nebu IH Q4HRT PRN Shortness Of Breath Ascorbic Acid 250 mg 12/26/20 22:00 12/27/20 21:24 Ascorbic Acid 250 Mg Tab PO 250 mg BID ALICE Administration Aspirin 81 mg 12/27/20 10:00 12/27/20 09:19 Aspirin Ec 81 Mg Tab PO 81 mg DAILY ALICE Administration Carvedilol 12.5 mg 12/26/20 22:00 12/27/20 21:25 Carvedilol 12.5 Mg Tab PO 12.5 mg BID ALICE Administration Cholecalciferol 1,000 unit 12/27/20 10:00 12/27/20 09:20 Cholecalciferol (Vit D3) 1000 Unit (25 Mcg) Tab PO 1,000 unit QDAY ALICE Administration Famotidine 20 mg 12/26/20 22:00 12/27/20 21:23 Famotidine 20 Mg Tab PO 20 mg BID ALICE Administration Heparin Sodium (Porcine) 5,000 unit 12/26/20 22:00 12/27/20 21:28 Heparin 5,000 Unit/1 Ml Vial SUB-Q 5,000 unit Q12HR ALICE Administration Hydralazine HCl 100 mg 12/26/20 22:00 12/27/20 21:25 Hydralazine 100 Mg Tab PO 100 mg BID ALICE Administration Hydralazine HCl 10 mg 12/27/20 05:34 12/28/20 04:31 Hydralazine 20 Mg/1 Ml Inj IV 10 mg Q6H PRN Administration Blood Pressure Hydrochlorothiazide 12.5 mg 12/27/20 10:00 12/27/20 09:20 Hydrochlorothiazide 12.5 Mg Cap PO 12.5 mg QDAY ALICE Administration Ceftriaxone Sodium 2 gm in 100 mls @ 200 mls/hr 12/26/20 14:00 12/27/20 13:32 Rocephin/Ns 2 Gm/100 Ml IV 200 mls/hr Q24H ALICE Administration Protocol Azithromycin 500 mg in 250 mls @ 250 mls/hr 12/26/20 13:30 12/27/20 12:43 Zithromax/Ns IV 250 mls/hr Q24H ALICE Administration Protocol Insulin Human Lispro 0 unit 12/27/20 08:10 12/27/20 21:26 Insulin Lispro 100 Unit/Ml SUB-Q 3 unit ACHS ALICE Administration Protocol Isosorbide Mononitrate 30 mg 12/27/20 10:00 12/27/20 09:20 Isosorbide Mononitrate Er 30 Mg Tab PO 30 mg QDAY ALICE Administration Metformin HCl 500 mg 12/27/20 08:00 12/28/20 08:50 Metformin 500 Mg Tab PO 500 mg QDDIAB ALICE Administration Methylprednisolone Sodium Succinate 40 mg 12/26/20 14:00 12/28/20 05:17 Methylprednisolone Sod Succinate 40 Mg/1 Ml Inj IV 40 mg Q8H ALICE Administration Mirtazapine 45 mg 12/26/20 22:00 12/27/20 21:23 Mirtazapine 15 Mg Tab PO 45 mg QHS ALICE Administration Naproxen 500 mg 12/26/20 13:11 Naproxen 500 Mg Tab PO Q12H PRN Pain, Mild (1-3) Ondansetron HCl 4 mg 12/26/20 12:39 Ondansetron 4 Mg/2 Ml Inj IV Q8H PRN Nausea And Vomiting Potassium Chloride 10 meq 12/27/20 10:00 12/27/20 09:20 Potassium Chloride Er 10 Meq Tab PO 10 meq QDAY ALICE Administration Pravastatin Sodium 80 mg 12/26/20 22:00 12/27/20 21:24 Pravastatin 80 Mg Tab PO 80 mg QHS ALICE Administration Sodium Chloride 10 ml 12/26/20 22:00 12/27/20 21:28 Sodium Chloride 0.9% 10 Ml Flush Syringe IV 10 ml BID ALICE Administration Sodium Chloride 10 ml 12/26/20 12:39 Sodium Chloride 0.9% 10 Ml Flush Syringe IV PRN PRN LINE FLUSH Tramadol HCl 50 mg 12/26/20 13:03 Tramadol 50 Mg Tab PO Q6H PRN Pain, Moderate (4-6) Trazodone HCl 100 mg 12/26/20 22:00 12/27/20 21:24 Trazodone 100 Mg Tab PO 100 mg QHS ALICE Administration Valsartan 320 mg 12/27/20 10:00 12/27/20 09:20 Valsartan 160mg Tab PO 320 mg QDAY ALICE Administration Zinc Sulfate 220 mg 12/26/20 22:00 12/27/20 21:41 Zinc Sulfate 220 Mg Cap PO 220 mg BID ALICE Administration
[2020-12-28] MEDS: CHOLECALCIFEROL (VIT D3) 1000 UNIT (25 mcg) TAB PO SCH (09:34)
[2020-12-28] MEDS: hydroCHLOROthiazide 12.5 MG CAP PO SCH (09:34)
[2020-12-28] MEDS: FAMOTIDINE 20 MG TAB PO SCH ×2 (09:34→22:24)
[2020-12-28] MEDS: ASPIRIN EC 81 MG TAB PO SCH (09:34)
[2020-12-28] MEDS: VALSARTAN 160MG TAB PO SCH (09:34)
[2020-12-28] MEDS: hydrALAZINE 100 MG TAB PO SCH ×2 (09:35→22:25)
[2020-12-28] MEDS: HEPARIN 5,000 UNIT/1 ML VIAL SUB-Q SCH ×2 (09:35→22:21)
[2020-12-28] MEDS: POTASSIUM CHLORIDE ER 10 MEQ TAB PO SCH (09:35)
[2020-12-28] MEDS: carvediloL 12.5 MG TAB PO SCH (09:35)
[2020-12-28] MEDS ORDERED: NITROGLYCERIN 0.4 MG TAB SUBL SL ONE (10:38)
[2020-12-28] MEDS ORDERED: NITROGLYCERIN 0.4 MG TAB SUBL SL PRN (11:02)
[2020-12-28] MEDS: NIFEdipine XL 60 MG TAB PO SCH ×2 (11:08→22:25)
[2020-12-28] MEDS: ZINC SULFATE 220 MG CAP PO SCH ×2 (11:08→22:24)
[2020-12-28] MEDS: ASCORBIC ACID 250 MG TAB PO SCH ×2 (11:09→22:25)
[2020-12-28] MEDS: INSULIN LISPRO 100 UNIT/ML SUB-Q SCH ×4 (11:09→22:22)
[2020-12-28] MEDS: AZITHROMYCIN/NS 500 MG/250 ML 500 MG/250 ML BAG IV SCH (12:32)
[2020-12-28] MEDS: cefTRIAXone/NS 2 GM/100 ML 2 GM/100 ML BAG IV SCH (13:11)
--- NOTE | 2020-12-28 13:33 | Progress Note ---
Assessment and Plan Cultures: Blood culture no growth SARS CoV2 PCR negative Assessment: 85 years old female with history of diabetes mellitus, hypertension, hyperlipidemia, hypothyroidism, CAD, obesity, dementia, admitted on 12/26/2020 secondary to few days history of generalized malaise, body aches, fatigue: #Bilateral pneumonia: Ruled out COVID-19 infection. D-dimer elevated, ferritin normal. Procalcitonin low. Transient hypoxia. Patient currently on room air. #Obesity hypoventilation Recommendations: -COVID negative, procalcitonin also low. Can do 3 days of PO Azithromycin to c over atypicals -Ceftriaxone discontinued -defer steroid management to primary team. No role from ID standpoint since COVID is negative Renato Rockwell MD, FACP [facility] O: [phone] F: [phone] Subjective Date of service: 12/28/20 Interval history: Afebrile. Has been tachycardic. Also having some wheezing. Objective - Exam Narrative Exam: Physical Exam: Constitutional: Alert, cooperative. No acute distress Head, Ears, Nose: Normocephalic, atraumatic. External ears, nose normal Eyes: Conjunctivae/corneas clear. No icterus. No ptosis. Neck: Supple, no meningeal signs Cardiovascular: S1, S2 normal. Respiratory: Few wheezes GI: Soft, non-tender; bowel sounds normal. No peritoneal signs Musculoskeletal: No pedal edema, no cyanosis. Skin: No rash or abscess Hem/Lymphatic: No palpable cervical or supraclavicular nodes. No lymphangitis Psych: Mood ok. Affect normal Neurological: Awake, alert, oriented. - Constitutional Vitals: Vital Signs Temp Pulse Resp BP Pulse Ox 98.0 F 111 H 20 153/74 97 12/28/20 11:50 12/28/20 12:12 12/28/20 11:50 12/28/20 11:50 12/28/20 12:12 Temperature -Last 24 Hours Temperature 98.0 F Temperature 96.3 F Temperature 98.7 F Temperature 98.6 F Temperature 99.9 F Temperature 99.3 F Temperature 97.8 F - Labs CBC & Chem 7: 12/28/20 04:35 12/28/20 04:35 Labs: Abnormal lab results 12/27/20 12/27/20 12/28/20 Range/Units 16:11 21:04 04:35 WBC 13.2 H (4.5-11.0) K/mm3 Lymph % (Auto) 9.7 L (13.4-35.0) % Seg Neutrophils % 88.3 H (40.0-70.0) % Seg Neutrophils # 11.7 H (1.8-7.7) K/mm3 BUN (7-17) mg/dL Glucose (65-100) mg/dL POC Glucose 155 H 213 H (70-105) mg/dL 12/28/20 12/28/20 Range/Units 04:35 07:54 WBC (4.5-11.0) K/mm3 Lymph % (Auto) (13.4-35.0) % Seg Neutrophils % (40.0-70.0) % Seg Neutrophils # (1.8-7.7) K/mm3 BUN 21 H (7-17) mg/dL Glucose 196 H (65-100) mg/dL POC Glucose 180 H (70-105) mg/dL
--- NOTE | 2020-12-28 14:33 | Consultation ---
History of Present Illness Consult date: 12/28/20 Requesting physician: BRIAN ALEXANDER Consult reason: chest pain History of present illness: The pt is an 85 YO female with a past medical history of CAD s/p PCI of RCA on 03/12/2019, HTN, HLP, DM, hypothyroidism. She is followed in our office by Dr. Clark. She presented with complaints of chest pain and intermittent dizziness for 5 days prior to arrival. She describes her chest pain as an intermittent, nonexertional, nonradiating, left-sided aching pain. She also c/o some dizziness with positional changes and headache. She denies any SOB, palpitations, n/v, diaphoresis or syncope. PET MPI done 06/2020 was negative, EF 78% at rest and 70% with stress. Echo done 03/11/2019 showed EF 55-60%, mild to mod LVH, impaired relaxation, mild TR. LHC 03/[address] Clark showed lt main patent, lad distal 70% systolic bridging prior to lesion (treat medically), lcx patent om1-3 patent, rca mid to distal 90%, pci of rca with sb resolute gavin 3.5 x 15 mm (two stents overlapping) and normal lv function. Past History Past Medical History: CAD, diabetes, hypertension, hyperlipidemia, hypothyroidism, other (See HPI) Past Surgical History: thyroidectomy, total knee replacement, Other (Cardiac stent placement) Social history: . denies: smoking, alcohol abuse, prescription drug abuse Family history: diabetes, hypertension Medications and Allergies Allergies Allergy/AdvReac Type Severity Reaction Status Date / Time codeine AdvReac Dizziness Verified 12/26/20 09:12 Home Medications Medication Instructions Recorded Confirmed Last Taken Type Aspirin EC [Halfprin EC] 81 mg PO DAILY #100 tablet 03/19/19 12/26/20 Unknown Rx ISOSORBIDE MONOnitrate [Imdur ER] 30 mg PO QDAY 30 Days #30 tablet 03/19/19 0 12/26/20 Unknown Rx Simvastatin [Zocor TAB] 40 mg PO QHS #30 tablet 03/19/19 12/26/20 Unknown Rx Mirtazapine 45 mg PO HS 08/19/20 12/26/20 Unknown History Naproxen 500 mg PO BID PRN 08/19/20 12/26/20 Unknown History Nitrofurantoin Kemper/M-Cryst 100 mg PO Q12HR 7 Days #14 capsule 08/19/20 12/26/20 Unknown Rx [Macrobid CAP] traMADoL [Ultram] 50 mg PO Q6HR PRN #7 tablet 08/19/20 12/26/20 Unknown Rx Potassium Chloride [K-Dur] 10 meq PO QDAY #30 tablet 08/22/20 12/26/20 Unknown Rx Valsartan-Hctz 320-12.5 mg Tab 320 mg PO DAILY 30 Days #30 08/22/20 12/26/20 Unknown Rx carvediloL [Coreg] 12.5 mg PO BID 60 Days #60 tablet 08/22/20 12/26/20 Unknown Rx hydrALAZINE [Apresoline TAB] 100 mg PO BID #60 tab 08/22/20 12/26/20 Unknown Rx levoFLOXacin [Levaquin] 750 mg PO QDAY #7 tablet 08/22/20 12/26/20 Unknown Rx metFORMIN XR [Glucophage XR] 500 mg PO QDAY #30 tablet 08/22/20 12/26/20 Unknown Rx traZODone 100 mg PO HS #30 08/22/20 12/26/20 Unknown Rx Active Meds: Active Medications Acetaminophen (Acetaminophen 325 Mg Tab) 650 mg PO Q4H PRN PRN Reason: Pain MILD(1-3)/Fever >100.5/GALLARDO Albuterol (Albuterol 2.5 Mg/3 Ml Nebu) 2.5 mg IH Q4HRT PRN PRN Reason: Shortness Of Breath Ascorbic Acid (Ascorbic Acid 250 Mg Tab) 250 mg PO BID [facility] Last Admin: 12/28/20 11:09 Dose: 250 mg Documented by: Aspirin (Aspirin Ec 81 Mg Tab) 81 mg PO DAILY [facility] Last Admin: 12/28/20 09:34 Dose: 81 mg Documented by: Carvedilol (Carvedilol 12.5 Mg Tab) 12.5 mg PO BID [facility] Last Admin: 12/28/20 09:35 Dose: 12.5 mg Documented by: Cholecalciferol (Cholecalciferol (Vit D3) 1000 Unit (25 Mcg) Tab) 1,000 unit PO QDAY [facility] Last Admin: 12/28/20 09:34 Dose: 1,000 unit Documented by: Famotidine (Famotidine 20 Mg Tab) 20 mg PO BID [facility] Last Admin: 12/28/20 09:34 Dose: 20 mg Documented by: Heparin Sodium (Porcine) (Heparin 5,000 Unit/1 Ml Vial) 5,000 unit SUB-Q Q12HR [facility] Last Admin: 12/28/20 09:35 Dose: 5,000 unit Documented by: Hydralazine HCl (Hydralazine 100 Mg Tab) 100 mg PO BID [facility] Last Admin: 12/28/20 09:35 Dose: 100 mg Documented by: Hydralazine HCl (Hydralazine 20 Mg/1 Ml Inj) 10 mg IV Q6H PRN PRN Reason: Blood Pressure Last Admin: 12/28/20 09:35 Dose: 10 mg Documented by: Hydrochlorothiazide (Hydrochlorothiazide 12.5 Mg Cap) 12.5 mg PO QDAY [facility] Last Admin: 12/28/20 09:34 Dose: 12.5 mg Documented by: Insulin Human Lispro (Insulin Lispro 100 Unit/Ml) 0 unit SUB-Q ACHS [facility]; Protocol Last Admin: 12/28/20 13:24 Dose: 4 unit Documented by: Isosorbide Mononitrate (Isosorbide Mononitrate Er 30 Mg Tab) 30 mg PO QDAY [facility] Last Admin: 12/28/20 09:35 Dose: 30 mg Documented by: Metformin HCl (Metformin 500 Mg Tab) 500 mg PO QDDIAB [facility] Last Admin: 12/28/20 08:50 Dose: 500 mg Documented by: Mirtazapine (Mirtazapine 15 Mg Tab) 45 mg PO QHS [facility] Last Admin: 12/27/20 21:23 Dose: 45 mg Documented by: Naproxen (Naproxen 500 Mg Tab) 500 mg PO Q12H PRN PRN Reason: Pain, Mild (1-3) Nifedipine (Nifedipine Xl 60 Mg Tab) 60 mg PO Q12HR [facility] Last Admin: 12/28/20 11:08 Dose: 60 mg Documented by: Nitroglycerin (Nitroglycerin 0.4 Mg Tab Subl) 0.4 mg SL .Q5MIN PRN PRN Reason: Chest Pain Ondansetron HCl (Ondansetron 4 Mg/2 Ml Inj) 4 mg IV Q8H PRN PRN Reason: Nausea And Vomiting Potassium Chloride (Potassium Chloride Er 10 Meq Tab) 10 meq PO QDAY [facility] Last Admin: 12/28/20 09:35 Dose: 10 meq Documented by: Pravastatin Sodium (Pravastatin 80 Mg Tab) 80 mg PO QHS [facility] Last Admin: 12/27/20 21:24 Dose: 80 mg Documented by: Sodium Chloride (Sodium Chloride 0.9% 10 Ml Flush Syringe) 10 ml IV BID [facility] Last Admin: 12/28/20 11:10 Dose: 10 ml Documented by: Sodium Chloride (Sodium Chloride 0.9% 10 Ml Flush Syringe) 10 ml IV PRN PRN PRN Reason: LINE FLUSH Tramadol HCl (Tramadol 50 Mg Tab) 50 mg PO Q6H PRN PRN Reason: Pain, Moderate (4-6) Trazodone HCl (Trazodone 100 Mg Tab) 100 mg PO QHS [facility] Last Admin: 12/27/20 21:24 Dose: 100 mg Documented by: Valsartan (Valsartan 160mg Tab) 320 mg PO QDAY [facility] Last Admin: 12/28/20 09:34 Dose: 320 mg Documented by: Review of Systems Constitutional: no weight loss, no weight gain, no fever, no chills, no sweats Ears, nose, mouth and throat: no ear pain, no nose pain, no sinus pressure, no sinus pain Cardiovascular: chest pain, lightheadedness, no orthopnea, no palpitations, no rapid/irregular heart beat, no edema, no syncope, no shortness of breath, no dyspnea on exertion Respiratory: no cough, no shortness of breath, no congestion, no wheezing, no pain on inspiration Gastrointestinal: no abdominal pain, no nausea, no vomiting, no diarrhea, no constipation, no change in bowel habits Genitourinary Female: no pelvic pain, no flank pain, no dysuria, no urinary frequency, no urgency Musculoskeletal: no neck stiffness, no neck pain, no shooting arm pain, no arm numbness/tingling, no low back pain, no shooting leg pain Integumentary: no rash, no pruritis, no redness, no sores, no wounds Neurological: weakness, no head injury, no paralysis, no parathesias, no numbness, no tingling, no seizures, no syncope Psychiatric: no anxiety Endocrine: no cold intolerance, no heat intolerance Hematologic/Lymphatic: no easy bleeding Allergic/Immunologic: no urticaria Physical Examination Vital Signs Temp Pulse Resp BP Pulse Ox 98.0 F 79 20 179/78 96 12/26/20 09:02 12/26/20 09:02 12/26/20 09:02 12/26/20 09:02 12/26/20 09:02 General appearance: no acute distress HEENT: Positive: PERRL, Normocephaly, Mucus Membranes Moist Neck: Positive: neck supple, trachea midline Cardiac: Positive: Reg Rate and Rhythm, S1/S2 Lungs: Positive: Decreased Breath Sounds Neuro: Positive: Grossly Intact Abdomen: Negative: Tender Skin: Negative: Rash Musculoskeletal: No Pain Extremities: Absent: edema Results 12/28/20 04:35 12/28/20 04:35 CBC 12/28/20 Range/Units 04:35 WBC 13.2 H (4.5-11.0) K/mm3 RBC 4.56 (3.65-5.03) M/mm3 Hgb 14.0 (10.1-14.3) gm/dl Hct 41.4 (30.3-42.9) % Plt Count 267 (140-440) K/mm3 Lymph # (Auto) 1.3 (1.2-5.4) K/mm3 Kemper # (Auto) 0.2 (0.0-0.8) K/mm3 Eos # (Auto) 0.0 (0.0-0.4) K/mm3 Baso # (Auto) 0.0 (0.0-0.1) K/mm3 Comprehensive Metabolic Panel 12/28/20 Range/Units 04:35 Sodium 140 (137-145) mmol/L Potassium 3.8 (3.6-5.0) mmol/L Chloride 105.2 (98-107) mmol/L Carbon Dioxide 23 (22-30) mmol/L BUN 21 H (7-17) mg/dL Creatinine 0.8 (0.6-1.2) mg/dL Glucose 196 H (65-100) mg/dL Calcium 8.8 (8.4-10.2) mg/dL - Imaging and Cardiology Echo: report reviewed ( 03/11/2019 showed EF 55-60%, mild to mod LVH, impaired relaxation, mild TR. ) Cardiac cath: report reviewed (03/[address] Clark showed lt main patent, lad distal 70% systolic bridging prior to lesion (treat medically), lcx patent om1-3 patent, rca mid to distal 90%, pci of rca with sb resolute gavin 3.5 x 15 mm (two stents overlapping) and normal lv function.) EKG: report reviewed, image reviewed EKG interpretations - Telemetry EKG Rhythm: Sinus Rhythm - EKG Sinus rhythms and dysrhythmias: sinus rhythm Assessment and Plan Pt's chest pain appears atypical. ECG shows sinus tachycardia, no acute ischemic changes. Byron negative for AMI x 1 set. Cont to trend Byron and f/u ECG in AM. PET MPI done 06/2020 was negative, EF 78% at rest and 70% with stress. PNA management per primary - COVID-19 testing is negative. Optimize HR - convert coreg to lopressor. Cont all other present cardiac ma nagement. Obtain echo. Will follow. The patient has been seen in conjunction with Dr. Mcdermott who agrees with the assessment and plan of care. - Patient Problems (1) Pneumonia Current Visit: Yes Status: Suspected (2) Atypical chest pain Current Visit: Yes Status: Acute (3) CAD (coronary artery disease) Current Visit: Yes Status: Chronic (4) Stented coronary artery Current Visit: Yes Status: Chronic (5) Hypertension Current Visit: Yes Status: Chronic Qualifiers: Hypertension type: essential hypertension Qualified Code(s): I10 - Essential (primary) hypertension (6) Hyperlipidemia Current Visit: Yes Status: Chronic (7) Diabetes Current Visit: Yes Status: Chronic (8) Hypothyroidism Current Visit: Yes Status: Chronic
[2020-12-28] MEDS: MIRTAZAPINE 15 MG TAB PO SCH (22:24)
[2020-12-28] MEDS: PRAVASTATIN 80 MG TAB PO SCH (22:25)
[2020-12-28] MEDS: traZODone 100 MG TAB PO SCH (22:25)
[2020-12-28] MEDS: METOPROLOL TARTRATE 50 MG TAB PO SCH (22:25)
--- NOTE | 2020-12-29 07:55 | Progress Note ---
Assessment and Plan Assessment and plan: Sepsis. Patient meets criteria given the tachycardia, altered mentation and diagnosis of pneumonia. Bilateral pneumonia. Suspected Covid infection. Obesity hypoventilation syndrome. Acute hypoxic respiratory failure. Etiology secondary to above. Diabetes mellitus type 2. Hyperlipidemia. Accelerated hypertension. 12/27/2020. Chest x-ray reveals bilateral opacities/infiltrates. Covid testing p ending. Inflammatory markers revealed D-dimer 1294, ferritin normal at 83 LDH slightly elevated at 291 and C-reactive protein normal at 0.1. Procalcitonin also normal. Continue to trend inflammatory markers. Continue antibiotics until evaluated by ID. We will likely discontinue given normal procalcitonin levels. Continue O2 or BiPAP as clinically indicated to maintain sats greater than 92% continue steroids and consider adding remdesivir if patient hypoxic. 12/28/2020. COVID-19 testing found to be negative. Antibiotics discontinued secondary to normal procalcitonin. BNP normal on admission so no evidence of heart failure. Follow-up CTA of chest for further evaluation of "faint bibas ilar opacity" as read by the radiologist. Patient also has elevated D-dimer. I spoke with her daughter who reported patient having chest pain for approximately 5 days prior to admission. Patient denies any chest pain currently. Patient has had a previous stent done by Dr. Clark. We will consult cardiology. Patient with accelerated hypertension and systolic blood pressure greater than 220. We will start Procardia 60 mg twice daily 12/29/2020; CTA is pending. Patient can be discharged if CTA is negative. History Interval history: Patient was seen and evaluated this morning Patient does not have any complaints Patient is not on oxygen Hospitalist Physical - Physical exam Narrative exam: Not in cardiopulmonary distress. The patient is obese. Vital signs as documented. Head exam is unremarkable. No scleral icterus . Neck is without jugular venous distension, thyromegaly, or carotid bruits. Lungs are clear to auscultation. Cardiac exam reveals regular rate and Rhythm. Abdominal exam reveals normal bowel sounds, nontender, no organomegaly. Extremities are nonedematous and both femoral and pedal pulses are normal. 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 No focal weakness. - Constitutional Vitals: Temp Pulse Resp BP Pulse Ox 98.1 F 87 16 152/80 95 12/29/20 03:53 12/29/20 03:53 12/29/20 03:53 12/29/20 03:53 12/29/20 03:53 General appearance: Present: no acute distress HEART Score - HEART Score EKG: Non-specific Age: > 65 Risk factors: > 3 risk factors or hx of atherosclerotic disease Troponin: Troponin T < 0.010 ng/mL (0.00-0.029) 12/28/20 15:48 Troponin: < normal limit - Critical Actions Critical Actions: 4-6 pts:12-16.6% risk of adverse cardiac event. Should be admitted Results - Labs CBC & Chem 7: 12/28/20 04:35 12/28/20 04:35 Labs: Laboratory Last Values WBC 13.2 K/mm3 (4.5-11.0) H 12/28/20 04:35 RBC 4.56 M/mm3 (3.65-5.03) 12/28/20 04:35 Hgb 14.0 gm/dl (10.1-14.3) 12/28/20 04:35 Hct 41.4 % (30.3-42.9) 12/28/20 04:35 MCV 91 fl (79-97) 12/28/20 04:35 MCH 31 pg (28-32) 12/28/20 04:35 MCHC 34 % (30-34) 12/28/20 04:35 RDW 14.9 % (13.2-15.2) 12/28/20 04:35 Plt Count 267 K/mm3 (140-440) 12/28/20 04:35 Lymph % (Auto) 9.7 % (13.4-35.0) L 12/28/20 04:35 Deuel % (Auto) 1.8 % (0.0-7.3) 12/28/20 04:35 Eos % (Auto) 0.0 % (0.0-4.3) 12/28/20 04:35 Baso % (Auto) 0.2 % (0.0-1.8) 12/28/20 04:35 Lymph # (Auto) 1.3 K/mm3 (1.2-5.4) 12/28/20 04:35 Deuel # (Auto) 0.2 K/mm3 (0.0-0.8) 12/28/20 04:35 Eos # (Auto) 0.0 K/mm3 (0.0-0.4) 12/28/20 04:35 Baso # (Auto) 0.0 K/mm3 (0.0-0.1) 12/28/20 04:35 Seg Neutrophils % 88.3 % (40.0-70.0) H 12/28/20 04:35 Seg Neutrophils # 11.7 K/mm3 (1.8-7.7) H 12/28/20 04:35 PT 13.0 Sec. (12.2-14.9) 12/26/20 09:43 INR 0.99 (0.87-1.13) 12/26/20 09:43 APTT 29.4 Sec. (24.2-36.6) 12/26/20 09:43 D-Dimer 1294.42 ng/mlDDU (0-234) H 12/26/20 13:51 Sodium 140 mmol/L (137-145) 12/28/20 04:35 Potassium 3.8 mmol/L (3.6-5.0) 12/28/20 04:35 Chloride 105.2 mmol/L (98-107) 12/28/20 04:35 Carbon Dioxide 23 mmol/L (22-30) 12/28/20 04:35 Anion Gap 16 mmol/L 12/28/20 04:35 BUN 21 mg/dL (7-17) H 12/28/20 04:35 Creatinine 0.8 mg/dL (0.6-1.2) 12/28/20 04:35 Estimated GFR > 60 ml/min 12/28/20 04:35 BUN/Creatinine Ratio 26 % 12/28/20 04:35 Glucose 196 mg/dL (65-100) H 12/28/20 04:35 POC Glucose 163 mg/dL (70-105) H 12/29/20 07:16 Calcium 8.8 mg/dL (8.4-10.2) 12/28/20 04:35 Magnesium 2.10 mg/dL (1.7-2.3) 12/26/20 09:43 Ferritin 83.8 ng/mL (10.0-200.0) 12/26/20 13:51 Total Bilirubin 0.20 mg/dL (0.1-1.2) 12/26/20 09:43 Direct Bilirubin < 0.2 mg/dL (0-0.2) 12/26/20 09:43 AST 18 units/L (5-40) 12/26/20 09:43 ALT 16 units/L (7-56) 12/26/20 09:43 Alkaline Phosphatase 54 units/L (35-129) 12/26/20 09:43 Lactate Dehydrogenase 291 units/L (91-180) H 12/26/20 13:51 Total Creatine Kinase 197 units/L (30-135) H 12/26/20 09:43 CK-MB (CK-2) 3.2 ng/mL (0.0-4.0) 12/26/20 09:43 CK-MB (CK-2) Rel Index 1.6 (0-4) 12/26/20 09:43 Troponin T < 0.010 ng/mL (0.00-0.029) 12/28/20 15:48 C-Reactive Protein 0.10 mg/dL (0.00-1.30) 12/26/20 13:51 NT-Pro-B Natriuret Pep 323.5 pg/mL (0-900) 12/27/20 13:25 Total Protein 7.4 g/dL (6.3-8.2) 12/26/20 09:43 Albumin 4.0 g/dL (3.9-5) 12/26/20 09:43 Albumin/Globulin Ratio 1.2 % 12/26/20 09:43 Procalcitonin < 0.05 ng/mL (<0.15) 12/26/20 13:51 Coronavirus (PCR) Negative (Negative) 12/27/20 09:25 Microbiology: Microbiology 12/26/20 13:51 Peripheral/Venous Blood Culture - Preliminary NO GROWTH AFTER 48 HOURS 12/26/20 13:51 Peripheral/Venous Blood Culture - Preliminary NO GROWTH AFTER 48 HOURS Beltran/IV: Voiding Method Toilet Active Medications - Current Medications Current Medications: Generic Name Dose Route Start Last Admin Trade Name Freq PRN Reason Stop Dose Admin Acetaminophen 650 mg 12/26/20 12:39 Acetaminophen 325 Mg Tab PO Q4H PRN Pain MILD(1-3)/Fever >100.5/GALLARDO Albuterol 2.5 mg 12/26/20 12:39 Albuterol 2.5 Mg/3 Ml Nebu IH Q4HRT PRN Shortness Of Breath Ascorbic Acid 250 mg 12/26/20 22:00 12/28/20 22:25 Ascorbic Acid 250 Mg Tab PO 250 mg BID ALICE Administration Aspirin 81 mg 12/27/20 10:00 12/28/20 09:34 Aspirin Ec 81 Mg Tab PO 81 mg DAILY ALICE Administration Cholecalciferol 1,000 unit 12/27/20 10:00 12/28/20 09:34 Cholecalciferol (Vit D3) 1000 Unit (25 Mcg) Tab PO 1,000 unit QDAY ALICE Administration Famotidine 20 mg 12/26/20 22:00 12/28/20 22:24 Famotidine 20 Mg Tab PO 20 mg BID ALICE Administration Heparin Sodium (Porcine) 5,000 unit 12/26/20 22:00 12/28/20 22:21 Heparin 5,000 Unit/1 Ml Vial SUB-Q 5,000 unit Q12HR ALICE Administration Hydralazine HCl 100 mg 12/26/20 22:00 12/28/20 22:25 Hydralazine 100 Mg Tab PO 100 mg BID ALICE Administration Hydralazine HCl 10 mg 12/27/20 05:34 12/28/20 09:35 Hydralazine 20 Mg/1 Ml Inj IV 10 mg Q6H PRN Administration Blood Pressure Hydrochlorothiazide 12.5 mg 12/27/20 10:00 12/28/20 09:34 Hydrochlorothiazide 12.5 Mg Cap PO 12.5 mg QDAY ALICE Administration Insulin Human Lispro 0 unit 12/27/20 08:10 12/28/20 22:22 Insulin Lispro 100 Unit/Ml SUB-Q 3 unit ACHS ALICE Administration Protocol Isosorbide Mononitrate 30 mg 12/27/20 10:00 12/28/20 09:35 Isosorbide Mononitrate Er 30 Mg Tab PO 30 mg QDAY ALICE Administration Metformin HCl 500 mg 12/27/20 08:00 12/28/20 08:50 Metformin 500 Mg Tab PO 500 mg QDDIAB ALICE Administration Metoprolol Tartrate 50 mg 12/28/20 22:00 12/28/20 22:25 Metoprolol Tartrate 50 Mg Tab PO 50 mg BID ALICE Administration Mirtazapine 45 mg 12/26/20 22:00 12/28/20 22:24 Mirtazapine 15 Mg Tab PO 45 mg QHS ALICE Administration Naproxen 500 mg 12/26/20 13:11 Naproxen 500 Mg Tab PO Q12H PRN Pain, Mild (1-3) Nifedipine 60 mg 12/28/20 10:00 12/28/20 22:25 Nifedipine Xl 60 Mg Tab PO 60 mg Q12HR ALICE Administration Nitroglycerin 0.4 mg 12/28/20 11:02 Nitroglycerin 0.4 Mg Tab Subl SL .Q5MIN PRN Chest Pain Ondansetron HCl 4 mg 12/26/20 12:39 Ondansetron 4 Mg/2 Ml Inj IV Q8H PRN Nausea And Vomiting Potassium Chloride 10 meq 12/27/20 10:00 12/28/20 09:35 Potassium Chloride Er 10 Meq Tab PO 10 meq QDAY ALICE Administration Pravastatin Sodium 80 mg 12/26/20 22:00 12/28/20 22:25 Pravastatin 80 Mg Tab PO 80 mg QHS ALICE Administration Sodium Chloride 10 ml 12/26/20 22:00 12/28/20 23:04 Sodium Chloride 0.9% 10 Ml Flush Syringe IV Not Given BID ALICE Sodium Chloride 10 ml 12/26/20 12:39 Sodium Chloride 0.9% 10 Ml Flush Syringe IV PRN PRN LINE FLUSH Tramadol HCl 50 mg 12/26/20 13:03 Tramadol 50 Mg Tab PO Q6H PRN Pain, Moderate (4-6) Trazodone HCl 100 mg 12/26/20 22:00 12/28/20 22:25 Trazodone 100 Mg Tab PO 100 mg QHS ALICE Administration Valsartan 320 mg 12/27/20 10:00 12/28/20 09:34 Valsartan 160mg Tab PO 320 mg QDAY ALICE Administration
[2020-12-29] MEDS: INSULIN LISPRO 100 UNIT/ML SUB-Q SCH ×3 (08:10→16:35)
[2020-12-29] MEDS: metFORMIN 500 MG TAB PO SCH (08:11)
[2020-12-29] MEDS: NIFEdipine XL 60 MG TAB PO SCH (09:33)
[2020-12-29] MEDS: CHOLECALCIFEROL (VIT D3) 1000 UNIT (25 mcg) TAB PO SCH (09:33)
[2020-12-29] MEDS: ASPIRIN EC 81 MG TAB PO SCH (09:33)
[2020-12-29] MEDS: hydroCHLOROthiazide 12.5 MG CAP PO SCH (09:33)
[2020-12-29] MEDS: METOPROLOL TARTRATE 50 MG TAB PO SCH (09:34)
[2020-12-29] MEDS: VALSARTAN 160MG TAB PO SCH (09:34)
[2020-12-29] MEDS: hydrALAZINE 100 MG TAB PO SCH (09:35)
[2020-12-29] MEDS: POTASSIUM CHLORIDE ER 10 MEQ TAB PO SCH (09:35)
[2020-12-29] MEDS: FAMOTIDINE 20 MG TAB PO SCH (09:35)
[2020-12-29] MEDS: HEPARIN 5,000 UNIT/1 ML VIAL SUB-Q SCH (09:36)
[2020-12-29] MEDS: ASCORBIC ACID 250 MG TAB PO SCH (09:37)
--- NOTE | 2020-12-29 11:10 | Progress Note ---
Assessment and Plan Pt's chest pain has resolved. Having discomfort with cough. ECG shows sinus rhythm, no acute ischemic changes. Byron negative for AMI x 2 set. PET MPI done 06/2020 was negative, EF 78% at rest and 70% with stress. Echo 08/20/2020: EF 55-60%, impaired LV diastolic filling. PNA management per primary - COVID-19 testing is negative. Cont present cardiac management. Assessment and plan of care discussed with pt at bedside and pt's daughter via telephone. Will follow on as needed basis. Recommend f/u with Dr. Clark within 1-2 weeks of discharge. The patient has been seen in conjunction with Dr. Mcdermott who agrees with the assessment and plan of care. - Patient Problems (1) Pneumonia Current Visit: Yes Status: Acute (2) Atypical chest pain Current Visit: Yes Status: Resolved (3) CAD (coronary artery disease) Current Visit: Yes Status: Chronic (4) Stented coronary artery Current Visit: Yes Status: Chronic (5) Hypertension Current Visit: Yes Status: Chronic Qualifiers: Hypertension type: essential hypertension Qualified Code(s): I10 - Essential (primary) hypertension (6) Hyperlipidemia Current Visit: Yes Status: Chronic (7) Diabetes Current Visit: Yes Status: Chronic (8) Hypothyroidism Current Visit: Yes Status: Chronic Subjective Date of service: 12/29/20 Principal diagnosis: Pneumonia Interval history: Pt is resting comfortably, alert and oriented. Cardiology was consulted for intermittent chest pain. Pt c/o discomfort with cough, but no continuous pain. No cardiac complaints. AMI has been ruled out with negative 12Lead and negative troponins x 2. Telemetry reviewed: sinus rhythm HR 96. Echo 08/20/2020: EF 55-60%, impaired LV diastolic filling. Objective Last Vital Signs Temp 98.1 F 12/29/20 07:18 Pulse 77 12/29/20 09:34 Resp 18 12/29/20 07:18 BP 168/78 12/29/20 09:34 Pulse Ox 95 12/29/20 08:05 - Physical Examination HEENT: Positive: PERRL, Normocephaly, Mucus Membranes Moist Neck: Positive: neck supple, trachea midline Cardiac: Positive: Reg Rate and Rhythm, S1/S2 Lungs: Positive: Decreased Breath Sounds Neuro: Positive: Grossly Intact Abdomen: Positive: Unremarkable. Negative: Tender Skin: Negative: Rash Musculoskeletal: No Pain Extremities: Absent: edema - Imaging and Cardiology EKG: report reviewed, image reviewed Echo: report reviewed (Echo 08/20/2020: EF 55-60%, impaired LV diastolic filling. 03/11/2019 showed EF 55-60%, mild to mod LVH, impaired relaxation, mild TR. ) Cardiac cath: report reviewed (03/[address] Clark showed lt main patent, lad distal 70% systolic bridging prior to lesion (treat medically), lcx patent om1-3 patent, rca mid to distal 90%, pci of rca with sb resolute gavin 3.5 x 15 mm (two stents overlapping) and normal lv function.) - Telemetry EKG Rhythm: Sinus Rhythm - EKG Sinus rhythms and dysrhythmias: sinus rhythm
[2020-12-29 11:31] VITALS: BP 133/85
[2020-12-29] MEDS ORDERED: LEVOTHYROXINE 50 MCG TAB PO ONE (12:00)
--- NOTE | 2020-12-29 13:52 | Progress Note ---
Assessment and Plan Cultures: Blood culture no growth SARS CoV2 PCR negative Assessment: 85 years old female with history of diabetes mellitus, hypertension, hyperlipidemia, hypothyroidism, CAD, obesity, dementia, admitted on 12/26/2020 secondary to few days history of generalized malaise, body aches, fatigue: #Bilateral pneumonia: Ruled out COVID-19 infection. D-dimer elevated, ferritin normal. Procalcitonin low. Transient hypoxia. Patient currently on room air. #Obesity hypoventilation Recommendations: -2 more days of PO Azithromycin ID will sign off. Please call with questions. Renato Rockwell MD, FACP [facility] ([facility]) O: [phone] F: [phone] Subjective Date of service: 12/29/20 Principal diagnosis: Pneumonia Interval history: Afebrile. No complaints. Breathing is fine. Objective - Exam Narrative Exam: Physical Exam: Constitutional: Alert, cooperative. No acute distress Head, Ears, Nose: Normocephalic, atraumatic. External ears, nose normal Eyes: Conjunctivae/corneas clear. No icterus. No ptosis. Neck: Supple, no meningeal signs Cardiovascular: S1, S2 normal. Respiratory:clear to ausc GI: Soft, non-tender; bowel sounds normal. No peritoneal signs Musculoskeletal: No pedal edema, no cyanosis. Skin: No rash or abscess Hem/Lymphatic: No palpable cervical or supraclavicular nodes. No lymphangitis Psych: Mood ok. Affect normal Neurological: Awake, alert, oriented. - Constitutional Vitals: Vital Signs Temp Pulse Resp BP Pulse Ox 97.5 F L 85 18 133/85 95 12/29/20 11:12 12/29/20 11:12 12/29/20 11:12 12/29/20 11:12 12/29/20 11:12 Temperature -Last 24 Hours Temperature 97.5 F Temperature 98.1 F Temperature 98.1 F Temperature 98.2 F Temperature 98.5 F Temperature 96.7 F - Labs CBC & Chem 7: 12/28/20 04:35 12/28/20 04:35 Labs: Abnormal lab results 12/28/20 12/28/20 12/28/20 Range/Units 11:50 15:23 20:21 POC Glucose 294 H 176 H 219 H (70-105) mg/dL 12/29/20 12/29/20 Range/Units 07:16 10:56 POC Glucose 163 H 208 H (70-105) mg/dL
--- NOTE | 2020-12-29 14:55 | Discharge Summary ---
Providers - Providers Date of Admission: 12/26/20 12:39 Date of discharge: 12/29/20 Attending physician: RONNA FLORES MD 12/27/20 07:55 Consult to Physician [CONS] Routine Comment: Consulting Provider: ELPIDIO BARKSDALE Physician Instructions: Reason For Exam: PUI 12/28/20 09:07 Physical Therapy Evaluation and Treat [CONS] Routine Comment: Reason For Exam: debility 12/28/20 09:23 Consult to Physician [CONS] Routine Comment: Consulting Provider: HALEIGH CLARK Physician Instructions: Reason For Exam: cp 12/29/20 12:44 Midline [Consult to PICC Line RN] [CONS] Stat Reason For Exam: CT angiogram Type Line:: Midline Primary care physician: REPORTING LEAD Hospitalization Reason for admission: Bilateral pneumonia, sepsis, diabetes mellitus, obesity Condition: Stable Hospital course: History of present illness: 85 YO Female with HTN, HLD, DM, Hypothyroidism, CAD S/P Stent Placement, Obesity Hypoventilation Syndrome, Metabolic Syndrome, Vascular Dementia, Cerebral Atherosclerosis presents to ED for evaluation. Patient has diminished cognition and is unable to provide detailed history. Patient reports "not feeling well, and pain all over her body. Patient also acknowledges generalized weakness, malaise, body aches, fatigue. Patient transported to [facility] via private vehicle for further care and evaluation of the aforementioned symptoms. Patient seen and evaluated in the emergency department. Lab and imaging studies reviewed. Patient underwent chest x-ray which showed bilateral infiltrates consistent with pneumonia. Patient initiated on coronavirus protocol in the emergency department prior to my evaluation. Patient admitted to medical floor and initiated on pneumonia protocol due to increased risk of decompensation. No reports of fever, chills, chest pain, palpitations, skin rash, recent ill contacts. Prior admission on 08/13/2019 reviewed. All medication listed at time of admission has been reconciled. Advanced care planning conducted in ED. Hospital course Sepsis. Patient meets criteria given the tachycardia, altered mentation and diagnosis of pneumonia. Bilateral pneumonia. Suspected Covid infection. Obesity hypoventilation syndrome. Acute hypoxic respiratory failure. Etiology secondary to above. Diabetes mellitus type 2. Hyperlipidemia. Accelerated hypertension. 12/27/2020. Chest x-ray reveals bilateral opacities/infiltrates. Covid testing pending. Inflammatory markers revealed D-dimer 1294, ferritin normal at 83 LDH slightly elevated at 291 and C-reactive protein normal at 0.1. Procalcitonin also normal. Continue to trend inflammatory markers. Continue antibiotics until evaluated by ID. We will likely discontinue given normal procalcitonin levels. Continue O2 or BiPAP as clinically indicated to maintain sats greater than 92% continue steroids and consider adding remdesivir if patient hypoxic. 12/28/2020. COVID-19 testing found to be negative. Antibiotics discontinued secondary to normal procalcitonin. BNP normal on admission so no evidence of heart failure. Follow-up CTA of chest for further evaluation of "faint bibasilar opacity" as read by the radiologist. Patient also has elevated D- dimer. I spoke with her daughter who reported patient having chest pain for ap proximately 5 days prior to admission. Patient denies any chest pain currently. Patient has had a previous stent done by Dr. Clark. We will consult cardiology. Patient with accelerated hypertension and systolic blood pressure greater than 220. We will start Procardia 60 mg twice daily 12/29/2020; CTA is pending. Patient can be discharged if CTA is negative. Patient was seen and evaluated before discharge, patient does not have any shortness of breath and is not on any oxygen. Patient states she is feeling good. CTA chest was done negative for PE or other findings. Patient was evaluated by cardiology and ID. Patient cleared for discharge. Patient discharged with p.o. antibiotics. Appropriate medications were reconciled at the time of discharge. Management plan was discussed with the patient who was in agreement with the plan of care. Disposition: DC-01 TO HOME OR SELFCARE Time spent for discharge: 32 minutes - Discharge Diagnoses (1) Bilateral pneumonia Status: Acute (2) Diabetes Status: Acute (3) Hyperglycemia Status: Acute (4) Hypertension Status: Acute Core Measure Documentation - Palliative Care Palliative Care/ Comfort Measures: Not Applicable - Core Measures Any of the following diagnoses?: none Exam - Physical Exam Narrative exam: Not in cardiopulmonary distress. The patient is obese. Vital signs as documented. Head exam is unremarkable. No scleral icterus . Neck is without jugular venous distension, thyromegaly, or carotid bruits. Lungs are clear to auscultation. Cardiac exam reveals regular rate and Rhythm. Abdominal exam reveals normal bowel sounds, nontender, no organomegaly. Extremities are nonedematous and both femoral and pedal pulses are normal. 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 No focal weakness. - Constitutional Vitals: Temp Pulse Resp BP Pulse Ox 97.5 F L 85 18 133/85 95 12/29/20 11:12 12/29/20 11:12 12/29/20 11:12 12/29/20 11:12 12/29/20 11:12 Plan Activity: no restrictions Weight Bearing Status: Full Weight Bearing Diet: low salt, diabetic Plan of Treatment: [facility] [phone] Follow up with: PRIMARY CARE, [Primary Care Provider] - 3-5 Days Prescriptions: Azithromycin 500 mg PO DAILY #2 tablet ALBUTEROL NEB's [Proventil 0.083% NEBS] 2.5 mg IH Q4HRT PRN #1 nebu PRN Reason: Shortness Of Breath
--- NOTE | 2020-12-29 15:37 | Cat Scan Report ---
CTA CHEST WITH IV CONTRAST INDICATION: Chest pain. TECHNIQUE: Axial CT images were obtained through the chest after injection of 100 cc Omnipaque 350 IV contrast. 3 plane MIP reconstructions were produced. All CT scans at this location are performed using CT dose reduction for ALARA by means of automated exposure control. COMPARISON: None available. FINDINGS: PULMONARY ARTERIES: Good opacification. No pulmonary emboli. AORTA AND ARTERIES: No acute abnormality. There is severe coronary atherosclerosis, moderate aortic a therosclerosis and mild great vessel atherosclerosis. HEART: No significant abnormality. MEDIASTINUM: No significant abnormality. LUNGS: No suspicious consolidation, nodule or mass. No pneumothorax or pleural effusion. ADDITIONAL FINDINGS: None. UPPER ABDOMEN: No acute findings. BONES: No acute abnormality or significant interval changes. IMPRESSION: 1. No CT evidence for pulmonary embolism. 2. No acute findings. Signer Name: Alvin Ryan MD Signed: 12/29/2020 3:33 PM Workstation Name: [id number]
[2020-12-30] MEDS ORDERED: LEVOTHYROXINE 50 MCG TAB PO SCH ×2 (06:00)
== END 2020-12-29 17:12 | disposition home health service (06) | DRG 871 ==
LOC: ED 08:45 → 3A 12:39 → 4A 12-27 18:46
PROVIDERS: ADMIT Internal Medicine; ATTEND Internal Medicine
DX: A41.9 Sepsis, unspecified organism (principal); J18.9 Pneumonia, unspecified organism; J96.01 Acute respiratory failure with hypoxia; Z20.822 Contact with and (suspected) exposure to COVID-19; R07.9 Chest pain, unspecified; I10 Essential (primary) hypertension; E78.5 Hyperlipidemia, unspecified; E03.9 Hypothyroidism, unspecified; I25.10 Atherosclerotic heart disease of native coronary artery without angina pectoris; Z95.818 Presence of other cardiac implants and grafts; E66.2 Morbid (severe) obesity with alveolar hypoventilation; F03.90 Unspecified dementia, unspecified severity, without behavioral disturbance, psychotic disturbance, mood disturbance, and anxiety; I67.2 Cerebral atherosclerosis; Z79.899 Other long term (current) drug therapy; Z79.891 Long term (current) use of opiate analgesic; Z79.01 Long term (current) use of anticoagulants; E11.65 Type 2 diabetes mellitus with hyperglycemia; Z83.3 Family history of diabetes mellitus; Z82.49 Family history of ischemic heart disease and other diseases of the circulatory system
CPT/HCPCS: 36415; 70450; 71045; 71275; 80048; 80076; 82550; 82553; 82728; 82947; 82962; 83615; 83735; 83880; 84145; 84484; 85025; 85379; 85610; 85730; 86140; 87040; 93005; 96374; 96375; G0378; A9270-GY; J0360; J0456; J0696; J1644; J1815; J2920; Q9967; U0003